=== PATIENT | female | born 1960 | race Caucasian/White ===

== ENCOUNTER 2016-11-02 10:03 | Emergency (ER) ==
[2016-11-02 10:03] VITALS: BMI 20.6
[2016-11-02 10:10] VITALS: BP 110/80; TEMP 96.9
--- NOTE | 2016-11-02 10:49 | ED.PDOC ---
General ED Provider: Dr. FRANCK KEYS JR Chief Complaint: Respiratory Complaint Stated Complaint: COUGH 6 DAYS. RUNNY NOSE. RIGHT RIB PAIN, DIARRHEA. [ End ] no PMD has tried to see Dr Lund but transportation issues Time Seen by Physician: 10:48 Mode of Arrival: Walk-In Information Source: Patient Exam Limitations: No limitations Nursing and Triage Documentation Reviewed and Agree: No Review of Systems - Review Of Systems Constitutional: Reports: Chills, Malaise, Weakness Eyes: Reports: No symptoms Ears, Nose, Mouth, Throat: Reports: No symptoms Respiratory: Reports: Cough, Short of air, Wheezing Cardiac: Reports: No symptoms GI: Reports: No symptoms : Reports: No symptoms Musculoskeletal: Reports: No symptoms Skin: Reports: No symptoms Neurological: Reports: No symptoms Endocrine: Reports: No symptoms Hematologic/Lymphatic: Reports: No symptoms All Other Systems: Other Past Medical History - Past Medical History Endocrine: Reports: None Cardiovascular: Reports: Hypertension Respiratory: Reports: None Hematological: Reports: None Gastrointestinal: Reports: Other (hep c ) Genitourinary: Reports: None Neuro/Psych: Reports: Anxiety, Depression Musculoskeletal: Reports: None Cancer: Reports: None Last Menstrual Period: NA - Surgical History General Surgical History: Reports: Hysterectomy, Cholecystectomy, Orthopedic ( RIGHT KNEE SURGERY. SCOPE SURGERY ON LEFT KNEE). Denies: CABG (cath rencent), Back Surgery (CHRONIC BACK PROBLEMS) - Family History Family History: Reports: Unknown - Social History Smoking Status: Current every day smoker, Vaping Hx Substance Use: Yes Alcohol Screening: Occasionally - Immunizations Tetanus Shot up to Date: Yes Physical Exam - Physical Exam Appearance: Ill-appearing, Thin Ill-appearing: Moderate Pain Distress: Moderate Eyes: MARY, EOMI, Conjunctiva clear ENT: Ears normal, Nose normal, Oropharynx normal Neck: Supple Respiratory: Airway patent, Rhonchi, Wheezes Cardiovascular: RRR GI/: Soft, Nontender, No masses, Bowel sounds normal, No Organomegaly Musculoskeletal: Normal strength, ROM intact, No edema, No calf tenderness Skin: Warm, Dry, Normal color Neurological: Sensation intact, Motor intact, Reflexes intact, Cranial nerves intact, Alert, Oriented Psychiatric: Affect appropriate, Mood appropriate, Anxious Interpretation - Radiology Interpretation Radiology Interpretation By: Radiologist Radiology Results: No acute changes Exam Interpreted: CXR Critical Care Note - Critical Care Note Total Time (mins): 10 Course - Course Orders, Labs, Meds: Orders Category Date Time Status CHEST, 2 VIEWS PA & LAT Stat RADS 11/02/16 10:48 Completed Vital Signs: Temp Pulse Resp BP Pulse Ox 11/02/16 10:06 96.9 F L 103 H 20 110/80 95 Departure - Departure Time of Disposition: 11:31 Disposition: HOME SELF-CARE Discharge Problem: Bronchitis, COPD exacerbation Instructions: COPD (Chronic Obstructive Pulmonary Disease) (ED), Acute Bronchitis (ED) Condition: Stable Pt referred to PMD for follow-up: Yes Additional Instructions: antibiotic until gone may use [place] for pain and cough may use tessalon for cough return if fever over 101.0 Prescriptions: Hydrocodone Bit/Acetaminophen [[place] 5-325] 1 - 2 tab PO Q6HR PRN #12 tablet PRN Reason: pain Sulfamethoxazole/Trimethoprim [Bactrim Ds 800/160 mg] 1 tab PO Q12HR #14 tablet Benzonatate [Tessalon Perles] 200 mg PO TID PRN #20 capsule PRN Reason: Cough Benzonatate [Tessalon Perles] 200 mg PO TID PRN #20 capsule PRN Reason: Cough Allergies/Adverse Reactions: Allergies cyclobenzaprine HCl [From Flexeril] Adverse Reaction (Verified 11/02/16 10:04) ketorolac tromethamine [From Toradol] Adverse Reaction (Verified 11/02/16 10:04) levofloxacin [From Levaquin] Adverse Reaction (Verified 11/02/16 10:04) Home Medications: Ambulatory Orders Estradiol 1 mg PO DAILY 03/19/16 Hydrochlorothiazide 25 mg PO DAILY 08/11/16 Ipratropium [place] [Atrovent Hfa] 2 puff IH QID PRN #1 inhaler 08/11/16 Metoprolol Tartrate [Lopressor] 50 mg PO BID 08/11/16 Benzonatate [Tessalon Perles] 200 mg PO TID PRN #20 capsule 11/02/16 Benzonatate [Tessalon Perles] 200 mg PO TID PRN #20 capsule 11/02/16 Hydrocodone Bit/Acetaminophen [[place] 5-325] 1 - 2 tab PO Q6HR PRN #12 tablet Sulfamethoxazole/Trimethoprim [Bactrim Ds 800/160 mg] 1 tab PO Q12HR #14 tablet 11/02/16 Disposition Discussed With: Patient
--- NOTE | 2016-11-02 11:29 | DI ---
EXAM: Chest two view, frontal and lateral views. HISTORY: Cough. COMPARISON: 08/11/2016, 05/19/2013. FINDINGS: The heart size is normal. There is no pulmonary vascular congestion. The lungs are maynor r save for stable right upper lobe scarring. No pleural effusion or pneumothorax is seen. No acute osseous abnormality identified. Cholecystectomy clips noted. IMPRESSION: No acute cardiopulmonary process.
== END 2016-11-02 12:05 | disposition home or self-care (01) ==
LOC: ED 10:03
DX: J44.0 Chronic obstructive pulmonary disease with (acute) lower respiratory infection (principal); J20.9 Acute bronchitis, unspecified; J44.1 Chronic obstructive pulmonary disease with (acute) exacerbation; F17.210 Nicotine dependence, cigarettes, uncomplicated
CPT/HCPCS: 99282

== ENCOUNTER 2016-11-05 11:42 | Emergency (ER) ==
[2016-11-05 11:54] VITALS: BP 108/75; TEMP 97.9; BMI 20.3
--- NOTE | 2016-11-05 12:45 | ED.PDOC ---
General ED Provider: Dr. FRANCK KEYS JR Chief Complaint: Respiratory Complaint Stated Complaint: Cough, nasal congestion, watery eyes, body aches. Ran out of [place] (given through this ER on 11/02) this AM. C/O mild diarrhea. Vomited 4-5 times this AM. [ End ]97.9 90 20 96% 108/75 9/10 ran out of norco this AM productive yellow green cough patient could not afford cough medication from when she was here the other day and is now out of norcos.[ End ] Time Seen by Physician: 12:30 Information Source: Patient Exam Limitations: No limitations Nursing and Triage Documentation Reviewed and Agree: No Review of Systems - Review Of Systems Constitutional: Reports: Malaise, Weakness Eyes: Reports: No symptoms Ears, Nose, Mouth, Throat: Reports: No symptoms Respiratory: Reports: Cough, Short of air, Wheezing Cardiac: Reports: No symptoms GI: Reports: Diarrhea, Nausea, Vomiting : Reports: No symptoms Musculoskeletal: Reports: No symptoms Skin: Reports: No symptoms Neurological: Reports: No symptoms Endocrine: Reports: No symptoms Hematologic/Lymphatic: Reports: No symptoms All Other Systems: Other Past Medical History - Past Medical History Endocrine: Reports: None Cardiovascular: Reports: Hypertension Respiratory: Reports: None Hematological: Reports: None Gastrointestinal: Reports: Other (hep c ) Genitourinary: Reports: None Neuro/Psych: Reports: Anxiety, Depression Musculoskeletal: Reports: None Cancer: Reports: None Last Menstrual Period: hysterectomy - Surgical History General Surgical History: Reports: Hysterectomy, Cholecystectomy, Orthopedic ( RIGHT KNEE SURGERY. SCOPE SURGERY ON LEFT KNEE). Denies: CABG (cath rencent), Back Surgery (CHRONIC BACK PROBLEMS) - Family History Family History: Reports: Unknown - Social History Smoking Status: Current every day smoker, Light tobacco smoker Hx Substance Use: Yes Alcohol Screening: Occasionally Physical Exam - Physical Exam Appearance: Ill-appearing, Thin, Cachectic Pain Distress: Moderate Eyes: MARY ENT: Ears normal, Nose normal, Oropharynx normal Neck: Supple Respiratory: Airway patent, Breath sounds equal (deep cough), Rhonchi, Wheezes Cardiovascular: RRR GI/: Soft, Nontender Musculoskeletal: ROM intact Skin: Warm, Dry Neurological: Sensation intact, Motor intact Critical Care Note - Critical Care Note Total Time (mins): 0 Course - Course Orders, Labs, Meds: Orders Category Date Time Status NEBULIZER TREATMENT Stat CARDIO 11/05/16 13:01 Completed Ipratropium/Albuterol Neb [Duoneb] MEDS 11/05/16 13:01 Discontinued 1 vial NEB ONCE STA Methylprednisolone Sod Succ/Pf [Solu-Medrol 125 mg] MEDS 11/05/16 12:49 Discontinued 125 mg IM ONCE STA Medications Discontinued Medications Generic Name Dose Route Start Last Admin Trade Name Freq PRN Reason Stop Dose Admin Albuterol/Ipratropium 1 vial 11/05/16 13:01 11/05/16 13:11 Duoneb NEB 11/05/16 13:02 1 vial ONCE STA Administration Methylprednisolone Sodium Succinate 125 mg 11/05/16 12:49 11/05/16 13:30 Solu-Medrol 125 Mg IM 11/05/16 12:50 125 mg ONCE STA Administration Vital Signs: Temp Pulse Resp BP Pulse Ox 11/05/16 11:45 97.9 F 90 20 108/75 96 Departure - Departure Time of Disposition: 13:43 Disposition: HOME SELF-CARE Discharge Problem: COPD exacerbation Instructions: COPD (Chronic Obstructive Pulmonary Disease) (ED) Condition: Fair Pt referred to PMD for follow-up: Yes (no pmd) Additional Instructions: recheck 1-2 weeks follow up with PMD may follow up with [facility] antibiotic should resolve symptoms avoid smoke and burning may need to avoid out of doors on [place] or pollen days recheck sooner if fever over 101.0 Prescriptions: Guaifenesin/Codeine Phosphate [Robitussin AC Syrup] 10 ml PO Q6H PRN #240 ml PRN Reason: Cough Promethazine HCl [Phenergan Tab] 25 mg PO QID PRN #12 tablet PRN Reason: Nausea / Vomiting Allergies/Adverse Reactions: Allergies cyclobenzaprine HCl [From Flexeril] Adverse Reaction (Verified 11/05/16 12:23) ketorolac tromethamine [From Toradol] Adverse Reaction (Verified 11/05/16 12:23) levofloxacin [From Levaquin] Adverse Reaction (Verified 11/05/16 12:23) Home Medications: Ambulatory Orders Estradiol 1 mg PO DAILY 03/19/16 Hydrochlorothiazide 25 mg PO DAILY 08/11/16 Ipratropium [place] [Atrovent Hfa] 2 puff IH QID PRN #1 inhaler 08/11/16 Metoprolol Tartrate [Lopressor] 50 mg PO BID 08/11/16 Sulfamethoxazole/Trimethoprim [Bactrim Ds 800/160 mg] 1 tab PO Q12HR #14 tablet 11/02/16 Guaifenesin/Codeine Phosphate [Robitussin AC Syrup] 10 ml PO Q6H PRN #240 ml Promethazine HCl [Phenergan Tab] 25 mg PO QID PRN #12 tablet 11/05/16
[2016-11-05] MEDS ORDERED: SOLU-MEDROL 125 MG IM STA (12:49)
[2016-11-05] MEDS ORDERED: DUONEB NEB STA (13:01)
== END 2016-11-05 14:51 | disposition home or self-care (01) ==
LOC: ED 11:42
DX: J44.1 Chronic obstructive pulmonary disease with (acute) exacerbation (principal); R11.2 Nausea with vomiting, unspecified; R19.7 Diarrhea, unspecified; F17.210 Nicotine dependence, cigarettes, uncomplicated; Z79.899 Other long term (current) drug therapy
CPT/HCPCS: 94640; 96372; 99283

== ENCOUNTER 2016-12-06 12:53 | Outpatient (CLI) ==
[2016-12-06 13:01] VITALS: BMI 20.6
== END 2016-12-06 12:54 ==
LOC: AMBL 12:53
PROVIDERS: ATTEND Internal Medicine
DX: M54.5 Low back pain (principal); G89.29 Other chronic pain

== ENCOUNTER 2016-12-06 13:00 | Emergency (ER) ==
[2016-12-06 13:01] VITALS: BMI 20.6
[2016-12-06 13:05] VITALS: BP 162/139; TEMP 98.3
[2016-12-06] MEDS ORDERED: NORFLEX IM STA (13:09)
--- NOTE | 2016-12-06 13:13 | ED.PDOC ---
General ED Provider: Dr. MENDOZA HERNANDEZ Chief Complaint: Back Pain Stated Complaint: back pain lumbar Time Seen by Physician: 13:00 Mode of Arrival: Ambulance Information Source: Patient Exam Limitations: No limitations Nursing and Triage Documentation Reviewed and Agree: Yes Musculoskeletal Complaint Exam - Back Pain Complaint/Exam Mechanism of Injury: Reports: No known trauma (was lifting a heavy object) Onset/Duration: 20 min Symptoms Are: Still present Timing: Constant Episodes Lasting: Minutes Initial Severity: Moderate Current Severity: Moderate Character: Reports: Throbbing Aggravating: Reports: Movements, Lifting, Bending, Walking Alleviating: Reports: Rest, Position Associated Signs and Symptoms: Denies: Swelling, Redness, Bruising, Fever, Weakness, Numbness, Tingling, Abdominal pain, Flank pain, Bladder incontinence, Bowel incontinence, Weight loss, Pain with weight bearing Related History: Reports: Similar episode Epidural Abcess Risk Factors: Reports: None Related Surgical History: Reports: None Focal Tenderness: No Paraspinal Muscle Tenderness: Yes Paraspinal Muscle Spasm: No Scoliosis: No Lordosis: No Kyphosis: No SLR Test: Right Negative, Left Negative Hip Motion Testing Pain: Right Negative, Left Negative Focal Weakness: Present: None Focal Sensory Loss: Present: None Gait: Present: Normal Differential Diagnoses: Strain, Sprain Review of Systems - Review Of Systems Constitutional: Reports: No symptoms Eyes: Reports: No symptoms Ears, Nose, Mouth, Throat: Reports: No symptoms Respiratory: Reports: No symptoms Cardiac: Reports: No symptoms GI: Reports: No symptoms : Reports: No symptoms Musculoskeletal: Reports: Back pain Skin: Reports: No symptoms Neurological: Reports: No symptoms Endocrine: Reports: No symptoms Hematologic/Lymphatic: Reports: No symptoms All Other Systems: Reviewed and Negative Past Medical History - Past Medical History Endocrine: Reports: None Cardiovascular: Reports: Hypertension Respiratory: Reports: None Hematological: Reports: None Gastrointestinal: Reports: Other (hep c ) Genitourinary: Reports: None Neuro/Psych: Reports: Anxiety, Depression Musculoskeletal: Reports: None Cancer: Reports: None Last Menstrual Period: none - Surgical History General Surgical History: Reports: Hysterectomy, Cholecystectomy, Orthopedic ( RIGHT KNEE SURGERY. SCOPE SURGERY ON LEFT KNEE). Denies: CABG (cath rencent), Back Surgery (CHRONIC BACK PROBLEMS) - Family History Family History: Reports: Unknown - Social History Smoking Status: Current every day smoker, Light tobacco smoker Hx Substance Use: Yes Alcohol Screening: Occasionally Physical Exam - Physical Exam Appearance: Well-appearing, No pain distress, Well-nourished Eyes: MARY, EOMI, Conjunctiva clear ENT: Ears normal, Nose normal, Oropharynx normal Respiratory: Airway patent, Breath sounds clear, Breath sounds equal, Respirations nonlabored Cardiovascular: RRR, Pulses normal, No rub, No murmur GI/: Soft, Nontender, No masses, Bowel sounds normal, No Organomegaly Musculoskeletal: Normal strength, ROM intact, No edema, No calf tenderness Skin: Warm, Dry, Normal color Neurological: Sensation intact, Motor intact, Reflexes intact, Cranial nerves intact, Alert, Oriented Psychiatric: Affect appropriate, Mood appropriate Critical Care Note - Critical Care Note Total Time (mins): 0 Course - Course Orders, Labs, Meds: Orders Category Date Time Status Orphenadrine Citrate [Norflex] MEDS 12/06/16 13:09 Discontinued 60 mg IM ONCE STA Medications Discontinued Medications Generic Name Dose Route Start Last Admin Trade Name Freq PRN Reason Stop Dose Admin Orphenadrine Citrate 60 mg 12/06/16 13:09 12/06/16 13:16 Norflex IM 12/06/16 13:10 60 mg ONCE STA Administration Vital Signs: Temp Pulse Resp BP Pulse Ox 12/06/16 13:01 98.3 F 73 18 162/139 H 95 Departure - Departure Time of Disposition: 13:12 Disposition: HOME SELF-CARE Discharge Problem: Back pain Qualifiers: Back pain location: low back pain Chronicity: chronic Back pain laterality: bilateral Sciatica presence: without sciatica Qualifier Code: (M54.5) Low back pain Instructions: Acute Low Back Pain (ED) Condition: Good Pt referred to PMD for follow-up: No Additional Instructions: Please call your Family Physician as soon as possible to schedule a follow-up appointment. Allergies/Adverse Reactions: Allergies cyclobenzaprine HCl [From Flexeril] Adverse Reaction (Verified 12/06/16 13:05) ketorolac tromethamine [From Toradol] Adverse Reaction (Verified 12/06/16 13:05) levofloxacin [From Levaquin] Adverse Reaction (Verified 12/06/16 13:05) Home Medications: Ambulatory Orders Estradiol 1 mg PO DAILY 03/19/16 Hydrochlorothiazide 25 mg PO DAILY 08/11/16 Ipratropium [place] [Atrovent Hfa] 2 puff IH QID PRN #1 inhaler 08/11/16 Metoprolol Tartrate [Lopressor] 50 mg PO BID 08/11/16
== END 2016-12-06 13:31 | disposition home or self-care (01) ==
LOC: ED 13:00
DX: M54.5 Low back pain (principal); X50.0XXA Overexertion from strenuous movement or load, initial encounter; F17.210 Nicotine dependence, cigarettes, uncomplicated
CPT/HCPCS: 96372; 99282

== ENCOUNTER 2017-05-21 10:15 | Emergency (ER) ==
[2017-05-21 10:25] VITALS: TEMP 98.1; BMI 21.7
[2017-05-21] MEDS ORDERED: SODIUM CHLORIDE 1,000 ML IV STA ×2 (10:25→11:40)
[2017-05-21] MEDS ORDERED: NORCURON ONE (10:33)
[2017-05-21] MEDS ORDERED: ANECTINE ONE (10:33)
[2017-05-21] MEDS ORDERED: NORCURON IVP STA ×2 (10:33→12:10)
[2017-05-21 10:35] LABS: BASOPHILS # (AUTO) 0.1 K/uL (0-0.2); BASOPHILS % (AUTO) 1.2 % (0.0-3.0); EOSINOPHILS # (AUTO) 0.3 K/ul (0.0-0.7); EOSINOPHILS % (AUTO) 5.2 % (0.0-7.0); HEMATOCRIT 29.6 % (37.0-47.0); HEMOGLOBIN 10.2 g/dl (12.0-16.0); IMMATURE GRANULOCYTE % (AUTO) 0.2 % (0.0-5.0); LYMPHOCYTES # (AUTO) 2.2 K/uL (0.60-3.4); LYMPHOCYTES % (AUTO) 38.5 (10.0-50.0); MEAN CORPUSCULAR HEMOGLOBIN 33.6 pg (27.0-31.0); MEAN CORPUSCULAR HGB CONC 34.5 (31.8-35.4); MEAN CORPUSCULAR VOLUME 97.4 fl (81.0-99.0); MONOCYTES # (AUTO) 0.5 K/uL (0.4-2.0); MONOCYTES % (AUTO) 8.5 (0-10); NEUTROPHILS # (AUTO) 2.7 K/ul (2.0-6.9); NEUTROPHILS % (AUTO) 46.4; PLATELET COUNT 248 10^3/uL (140-440); RED BLOOD COUNT 3.04 10^6/ul (4.20-5.40); WHITE BLOOD COUNT 5.76 K/ul (4.6-10.2)
[2017-05-21 10:42] LABS: BILIRUBIN,URINE Negative (NEGATIVE); KETONES,URINE Negative (NEGATIVE); LEUKOCYTE ESTERASE ,URINE Negative (NEGATIVE); NITRITE,URINE Negative (NEGATIVE); PH,URINE 5.5 (5-9); PROTEIN,URINE Trace (NEGATIVE); URINE, BLOOD Negative (NEGATIVE)
--- NOTE | 2017-05-21 10:46 | DI ---
EXAM: Single view of the chest. History: Short of breath, overdose. Comparison: Chest radiograph 11/02/2016 Findings: Heart size is within normal limits. No focal consolidation. No appreciable pleural fluid and no pneumothorax. No acute osseous abnormalities. Impression: No acute cardiopulmonary process
--- NOTE | 2017-05-21 10:48 | DI ---
EXAM: Single view of the chest. History: Intubation. Comparison: Chest radiograph 05/1960 1017 Findings: Heart size is normal. Endotracheal tube tip is within the right mainstem bronchus. Develo ping patchy left lung infiltrates and atelectasis. Elevation of the left hemidiaphragm. No pneumoth orax. No acute osseous abnormalities. Impression: 1. Endotracheal tube tip within the right mainstem bronchus. Recommend retracting 3 cm. 2. Developing patchy left lung infiltrates and atelectasis. Results communicated to Dr. Coleman at 10:43 a.m. 05/21/2017
[2017-05-21 10:50] LABS: COCAIN SCREEN,URINE NEGATIVE (NEGATIVE)
[2017-05-21] MEDS ORDERED: SODIUM CHLORIDE 500 ML IV STA (10:52)
[2017-05-21 10:53] LABS: ADD URINE MICROSCOPIC YES
[2017-05-21 10:55] LABS: ACETAMINOPHEN < 3 ug/ml (10-30); ALANINE AMINOTRANSFERASE 41 U/L (12-78); ALBUMIN 2.9 g/dL (3.4-5.0); ALBUMIN/GLOBULIN RATIO 0.97; ALKALINE PHOSPHATASE 43 U/L (42-98); ANION GAP 11.5; ASPARTATE AMINO TRANSFERASE 38 U/L (15-37); BILIRUBIN,TOTAL 0.21 mg/dL (0.00-1.20); BLOOD UREA NITROGEN 20 mg/dL (7-18); BUN/CREATININE RATIO 24.39; CALCIUM 8.3 mg/dL (8.2-10.2); CARBON DIOXIDE 23 mmol/L (21-32); CHLORIDE 108 mmol/L (98-107); CREATININE 0.82 mg/dL (0.60-1.30); GLUCOSE 141 mg/dL (70-110); POTASSIUM 3.5 mmol/L (3.5-5.10); SALICYLATE < 5.0 mg/dL (2.8-20.0); SODIUM 139 mmol/L (136-145); TOTAL PROTEIN 5.9 g/dL (6.4-8.2)
[2017-05-21 11:05] LABS: ABG PCO2 40.2 mmHg (35-45); ABG PH 7.336 (7.35-7.45)
--- NOTE | 2017-05-21 11:05 | DI ---
EXAM: Chest one view, frontal view only. HISTORY: Endotracheal tube repositioning. COMPARISON: Earlier the same day at 1118 hours. FINDINGS: Endotracheal tube tip is now at the level of the medial clavicles. Linear opacity noted i n the left perihilar region and mildly increased left retrocardiac opacity noted. Right lung is maynor r. No pleural effusion or pneumothorax identified. Heart size is normal. IMPRESSION: 1. Endotracheal tube in satisfactory position. 2. Areas of left lung subsegmental atelectasis.
[2017-05-21 11:06] LABS: ABG BASE EXCESS -4 (-2.0-2.0); ABG HCO3 21.5 (22.0-26.0); ABG TCO2 23 (22.0-28.0)
[2017-05-21] MEDS ORDERED: ATROPINE SULFATE SDV IVP STA (11:20)
--- NOTE | 2017-05-21 11:26 | CT ---
EXAM: CT of the head without contrast History: Unresponsive Comparison: Head CT 08/01/2015 Technique: Multiplanar CT images through the head were obtained without the administration of IV con trast Findings: There is mild to moderate mucosal thickening of the ethmoid air cells and frontal sinuses. Mastoid air cells are clear in general. No acute calvarial abnormalities. There is fluid within the posterior nasopharynx Intracranially the ventricular and cisternal spaces are normal in size, shape and configuration for a patient of this age. No dominant mass or midline shift. No hydrocephalous. No acute intracranial hemorrhage or abnormal extraaxial fluid collections. Impression: No acute intracranial process. Sinus mucosal thickening and fluid within the posterior nasopharynx
--- NOTE | 2017-05-21 11:29 | CT ---
EXAM: CT cervical spine without contrast. HISTORY: Found down. Possible neck injury. COMPARISON: Radiograph 10/20/2015. CT 05/19/2013. TECHNIQUE: Multiple axial images of the cervical spine were obtained without intravenous contrast. Images were reformatted in the sagittal and coronal planes. FINDINGS: There is straightening of the normal lordosis, likely positional. Alignment is normal. V ertebral body heights are maintained. There is mild loss of disc height at C5-6 with associated disc osteophyte formation which causes mild spinal stenosis. No other significant spinal stenosis identi fied. Uncovertebral hypertrophy and facet arthropathy throughout the cervical spine cause multilevel neural foraminal narrowing, mild to moderate in degree. No fracture or subluxation identified. Mild paranasal sinus mucosal thickening noted. Endotracheal tube is partially imaged with pharyngeal edema present. Small calcified left thyroid nodule noted. Emphysematous changes present in the te g apices.. IMPRESSION: No acute abnormality of the cervical spine.
[2017-05-21] MEDS ORDERED: DOPAMINE 400 MG in PREMIX 250 ML D5W 1 BAG IV SCH (11:30)
[2017-05-21 11:31] VITALS: BP 87/62
--- NOTE | 2017-05-21 11:43 | ED.PDOC ---
General ED Provider: Dr. 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 iv established by EMS fluid bolus given and narcan2 mg ivp) Nursing and Triage Documentation Reviewed and Agree: Yes (PT HAS TRACK ROSARIO ON BOTH ARMS SEE PHOTOS) Miscellaneous Complaint Exam - Complex/Multi-System Complaint/Exam Onset/Duration: TODAY THIS MORNING Symptoms Are: Still present Episodes Lasting: Hours (ARRIVED WITH O2 SAT HIGH 90'S AND EVEN 100 ON PULSE OX ) Initial Severity: Severe Current Severity: Severe Location of Pain: UNRESPONSIVE Pain Radiates to: N/A Character: N/A Aggravating: N/A Alleviating: N/A Associated Signs and Symptoms: Reports: Decreased responsiveness. 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, Prior MRSA, Prior VRE, Recent trauma, Remote trauma Recent Echo/LV Function: No (NO INFO) Respiratory Distress: None (BUT HAS NOISY RESPIRATION) JVD Present: No Tachypnea Present: No (SHALLOW ) Stridor Present: No Abdominal Findings: Present: Normal findings Glascow Coma Scale (see protocol): 8 Meningeal Signs Positive: No Focal Weakness: Present: None Focal Sensory Loss: Present: None Gait: Unable Gag Reflex Present: Yes Babinski Sign: Negative Right, Negative Left Skin Findings: Present: Erythema (TRACK ROSARIO BOTH ARMS SEE PHOTOS) Joint Swelling Present: No In-Dwelling Device Present: No Differential Diagnosis: Cardiac Ischemia, Closed Cranial Trauma, CVA (OVERDOSE ) , Metabolic Abnormality, Sepsis Quality Indicators for Cardiac Chest Pain: EKG in 10min. Quality Indicators for AMI: EKG in 10min. Quality Indicator For Non-Traumatic Chest Pain/Syncope: EKG Performed Review of Systems - Review Of Systems Constitutional: Reports: Malaise Eyes: Reports: Other (FIXED PINPOINT PUPILS NONEREACTIVE) Ears, Nose, Mouth, Throat: Reports: No symptoms Respiratory: Reports: No symptoms Cardiac: Reports: No symptoms GI: Reports: No symptoms : Reports: No symptoms Musculoskeletal: Reports: No symptoms Skin: Reports: No symptoms Neurological: Reports: Other (RESPONSIVE PIN [place]INT PUIPLS WITHDRWL'S TO PAIN MOANS SOME ) Endocrine: Reports: No symptoms Hematologic/Lymphatic: Reports: No symptoms All Other Systems: Reviewed and Negative Past Medical History - Past Medical History Endocrine: Reports: None Cardiovascular: Reports: Hypertension Respiratory: Reports: None Hematological: Reports: None Gastrointestinal: Reports: Other (hep c ) Genitourinary: Reports: None Neuro/Psych: Reports: Anxiety, Depression Musculoskeletal: Reports: None Cancer: Reports: None Last Menstrual Period: hysterectomy - Surgical History General Surgical History: Reports: Hysterectomy, Cholecystectomy, Orthopedic ( RIGHT KNEE SURGERY. SCOPE SURGERY ON LEFT KNEE). Denies: CABG (cath rencent), Back Surgery (CHRONIC BACK PROBLEMS) - Family History Family History: Reports: Unknown - Social History Smoking Status: Current every day smoker, Light tobacco smoker Hx Substance Use: Yes (track rosario on arms) Alcohol Screening: Occasionally Physical Exam - Physical Exam Appearance: Ill-appearing Ill-appearing: Severe Pain Distress: Mild Eyes: Right pupil size (2MM NONE REACTIVE), Left pupil size (2MM) ENT: Dry mucosa Respiratory: Rhonchi Cardiovascular: RRR, Pulses normal, No rub, No murmur GI/: Soft, Nontender, No masses, Bowel sounds normal, No Organomegaly Musculoskeletal: Normal strength, ROM intact, No edema, No calf tenderness Skin: Warm, Dry, Normal color Neurological: Unresponsive Psychiatric: Affect appropriate, Mood appropriate Interpretation - Radiology Interpretation Radiology Interpretation By: Radiologist Radiology Results: No acute changes Exam Interpreted: CXR (POST INTUBATION ET AT RIGHT MAIN STEM, SECOND EVAN TUBE IN SATISFACTORY POSTION), CT Scan Radiology Interpretation By: Radiologist (CT CERVICAL SPINE READ NEGATIVE) - 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 Rhythm: Sinus Ectopy: None - EKG Interpretation Rate: Normal Rhythm: Sinus Ectopy: None Lindstrom: NL ST Segment: Normal (LATER SINUS ABHAY CARDIA) Rate: Abhay Rhythm: Sinus Procedures - Intubation Indication: Present: Respiratory Insufficiency, Altered Mental Status, Airway Protection, Other (GCS 8) Time of Intubation: 10:28 (TUBE IN FIRST ATTEMPT) Medications: Yes: Norcuron, Succinylcholine Type of Tube Used: Endotracheal (7.0) Tube Size: 7 Cricoid Pressure Used: Yes Tube Manzanares Used: Yes Position of Tube at Lip: INITALLY AT 25 CM POST FILM PLACED AT 22 CM Number of Attempts: 1 Suction Used: Yes Glidescope Used: No CO2 Detector Used: Yes (CONFIRMED COLOR ) Lung Sounds Equal Bilaterally: Yes Intubation Complications: Present: No complications Tube Inserted By: RAFATI Tube Placement Verified by X-ray: Yes Progress/Xray Impression: FILMS EXAMINED TUBE PLACED AT 22 CM Re-Evaluation - Re-Evaluation Time of Re-Evaluation: 11:00 Status: Unchanged Vital Signs Stable: Yes Pain Level: REMAINS INTUBATED AND MECHANICALLY VENTILATED Appearance: NAD Lungs: Clear Skin: Warm and Dry Neuro: Other (PARALYZED DUE TO MEDS) - Re-Evaluation Time of Re-Evaluation: 12:00 (CT HEAD WAS NEGATIVE ) Status: Unchanged Vital Signs Stable: Yes (PLACED ON DOPAMINE ABOUT 30 MIN AGO B/P WAS IN HIGH SYSTOLIC ,) Pain Level: B/P 11:55 AM 98/53 ON DOPAMINE 10 DARLINE Appearance: NAD Skin: Warm and Dry Neuro: Other (URINE DRUG POSITIVE FOR AMPHETAMINE , BENZO,OPIATES) CV: RRR Physician Notification - Case Discussed Physician Notified: INDIA GONZALES Time of Notification: 12:12 (TRANSFER ) Critical Care Note - Critical Care Note Total Time (mins): 3 Course - Course Hematology/Chemistry: 05/21/17 10:25 05/21/17 10:25 Orders, Labs, Meds: Lab Review 05/21/17 05/21/17 05/21/17 10:25 10:25 10:34 WBC 5.76 RBC 3.04 L Hgb 10.2 L Hct 29.6 L MCV 97.4 MCH 33.6 H MCHC 34.5 RDW Coeff of Sheryl 13.1 Plt Count 248 Immature Gran % (Auto) 0.2 Neut % (Auto) 46.4 Lymph % (Auto) 38.5 [place] % (Auto) 8.5 Eos % (Auto) 5.2 Baso % (Auto) 1.2 Immature Gran # (Auto) 0.0 Neut # 2.7 Lymph # 2.2 [place] # 0.5 Eos # 0.3 Baso # 0.1 Puncture Site Rb O2 Saturation 100.0 ABG pH 7.336 L ABG pCO2 40.2 ABG pO2 359.0 H ABG HCO3 21.5 L ABG Total CO2 23 ABG Base Excess -4 L O2 Delivery Device Vent tv 500 FiO2 % 100.0 Sodium 139 Potassium 3.5 Chloride 108 H Carbon Dioxide 23 Anion Gap 11.5 BUN 20 H Creatinine 0.82 Estimated GFR (MDRD) 72.00 BUN/Creatinine Ratio 24.39 Glucose 141 H Calcium 8.3 Total Bilirubin 0.21 AST 38 H ALT 41 Alkaline Phosphatase 43 Total Protein 5.9 L Albumin 2.9 L Globulin 3.0 Albumin/Globulin Ratio 0.97 Urine Color Urine Clarity Urine pH Ur Specific [place] Urine Protein Urine Glucose (UA) Urine Ketones Urine Blood Urine Nitrite Urine Bilirubin Urine Urobilinogen Ur Leukocyte Esterase Ur Squamous Epith Cells Amorphous Sediment Hyaline Casts Salicylate Level mg/dL < 5.0 Urine Opiates Screen Ur Oxycodone Screen Urine Methadone Screen Ur Propoxyphene Screen Acetaminophen < 3 L Ur Barbiturates Screen U Tricyclic Antidepress Ur Phencyclidine Scrn Ur Amphetamine Screen U Methamphetamines Scrn U Benzodiazepines Scrn Urine Cocaine Screen U Cannabinoids Screen Plasma/Serum Alcohol 154.5 H 05/21/17 05/21/17 10:35 10:35 WBC RBC Hgb Hct MCV MCH MCHC RDW Coeff of Sheryl Plt Count Immature Gran % (Auto) Neut % (Auto) Lymph % (Auto) [place] % (Auto) Eos % (Auto) Baso % (Auto) Immature Gran # (Auto) Neut # Lymph # [place] # Eos # Baso # Puncture Site O2 Saturation ABG pH ABG pCO2 ABG pO2 ABG HCO3 ABG Total CO2 ABG Base Excess O2 Delivery Device FiO2 % Sodium Potassium Chloride Carbon Dioxide Anion Gap BUN Creatinine Estimated GFR (MDRD) BUN/Creatinine Ratio Glucose Calcium Total Bilirubin AST ALT Alkaline Phosphatase Total Protein Albumin Globulin Albumin/Globulin Ratio Urine Color Yellow Urine Clarity Clear Urine pH 5.5 Ur Specific [place] 1.025 Urine Protein Trace Urine Glucose (UA) Negative Urine Ketones Negative Urine Blood Negative Urine Nitrite Negative Urine Bilirubin Negative Urine Urobilinogen 0.2 Ur Leukocyte Esterase Negative Ur Squamous Epith Cells 0-2 Amorphous Sediment 1+ Hyaline Casts 0-2 Salicylate Level mg/dL Urine Opiates Screen Positive Ur Oxycodone Screen Negative Urine Methadone Screen Negative Ur Propoxyphene Screen Negative Acetaminophen Ur Barbiturates Screen Negative U Tricyclic Antidepress Negative Ur Phencyclidine Scrn Negative Ur Amphetamine Screen Positive U Methamphetamines Scrn Negative U Benzodiazepines Scrn Positive Urine Cocaine Screen Negative U Cannabinoids Screen Negative Plasma/Serum Alcohol Orders Category Date Time Status ABG DRAW REQUEST Stat CARDIO 05/21/17 11:00 Completed EKG-(ED ONLY) Stat CARDIO 05/21/17 10:16 Completed EKG-(ED ONLY) Stat CARDIO 05/21/17 11:27 Completed ED VISUAL MERCHANDISER APPLIED ONCE EMERGENCY 05/21/17 10:16 Active Bar [ED CATHETER INSERTION AND CARE] .ONCE EMERGENCY 05/21/17 10:59 Active ABG Stat LAB 05/21/17 10:34 Completed ACETAMINOPHEN Stat LAB 05/21/17 10:25 Completed BLOOD ALCOHOL Stat LAB 05/21/17 10:25 Completed BLOOD CULTURE Stat LAB 05/21/17 11:26 Ordered CBC W/ AUTO DIFF Stat LAB 05/21/17 10:25 Completed COMPREHENSIVE METABOLIC PANEL Stat LAB 05/21/17 10:25 Completed DRUG SCREEN, URINE, RAPID Stat LAB 05/21/17 10:35 Completed LACTIC ACID Stat LAB 05/21/17 11:26 Ordered PROCALCITONIN Stat LAB 05/21/17 Ordered SALICYLATE Stat LAB 05/21/17 10:25 Completed URINALYSIS C & S IF INDICATED Stat LAB 05/21/17 10:35 Completed Atropine Sulfate [Atropine Sulfate Sdv] MEDS 05/21/17 11:20 Discontinued 0.5 mg IVP ONCE STA Premix 250 ml D5w 1 bag MEDS 05/21/17 11:30 Active Dopamine HCl/D5w [Dopamine] 400 mg IV 1 mcg/kg/min Succinylcholine Chloride [Anectine] MEDS 05/21/17 10:18 Discontinued 100 mg IVP ONCE STA Succinylcholine Chloride [Anectine] MEDS 05/21/17 10:33 Discontinued 20 mg .ROUTE .STK-MED ONE Vecuronium [place] [Norcuron] MEDS 05/21/17 10:33 Discontinued 10 mg .ROUTE .STK-MED ONE Vecuronium [place] [Norcuron] MEDS 05/21/17 10:33 Discontinued 8 mg IVP ONCE STA CHEST, 1V AP ONLY Stat RADS 05/21/17 10:16 Completed CHEST, 1V AP ONLY Stat RADS 05/21/17 10:29 Completed CHEST, 1V AP ONLY Stat RADS 05/21/17 10:[address] CERVICAL SPINE W/O CONTRAST Stat RADS 05/21/17 10:[address] HEAD W/O CONTRAST Stat RADS 05/21/17 10:45 Completed Medications Generic Name Dose Route Start Last Admin Trade Name Freq PRN Reason Stop Dose Admin Dopamine HCl/Dextrose 400 mg/ 250 mls @ 2.29 mls/hr 05/21/17 11:30 05/21/17 11:30 Dextrose IV 10 mcg/kg/min .Q24H KENDRA 22.96 mls/hr Protocol Administration 1 MCG/KG/MIN Discontinued Medications Generic Name Dose Route Start Last Admin Trade Name Freq PRN Reason Stop Dose Admin Atropine Sulfate 0.5 mg 05/21/17 11:20 Atropine Sulfate Sdv IVP 05/21/17 11:21 ONCE STA Succinylcholine Chloride 100 mg 05/21/17 10:18 05/21/17 10:36 Anectine IVP 05/21/17 10:19 100 mg ONCE STA Administration Vecuronium [place] 8 mg 05/21/17 10:33 05/21/17 10:38 Norcuron IVP 05/21/17 10:34 8 mg ONCE STA Administration Vital Signs: Temp Pulse Resp BP Pulse Ox 05/21/17 11:30 50 L 20 87/62 L 05/21/17 10:40 16 05/21/17 10:16 98.1 F 61 12 77/47 L 100 Departure - Departure Time of Disposition: 12:00 Disposition: TSF SHORT-TRM HOSP Discharge Problem: Drug overdose Instructions: Adult Overdose (ED) Condition: Good Pt referred to PMD for follow-up: Yes Allergies/Adverse Reactions: Allergies cyclobenzaprine HCl [From Flexeril] Adverse Reaction (Verified 12/06/16 13:05) ketorolac tromethamine [From Toradol] Adverse Reaction (Verified 12/06/16 13:05) levofloxacin [From Levaquin] Adverse Reaction (Verified 12/06/16 13:05) Home Medications: Ambulatory Orders Estradiol 1 mg PO DAILY 03/19/16 Hydrochlorothiazide 25 mg PO DAILY 08/11/16 Ipratropium [place] [Atrovent Hfa] 2 puff IH QID PRN #1 inhaler 08/11/16 Metoprolol Tartrate [Lopressor] 50 mg PO BID 08/11/16
[2017-05-21] MEDS: ANECTINE IVP STA (13:35)
[2017-05-21] MEDS ORDERED: ANECTINE IVP STA (13:35)
== END 2017-05-21 14:05 | disposition short-term general hospital (02) ==
LOC: ED 10:15
DX: T65.91XA Toxic effect of unspecified substance, accidental (unintentional), initial encounter (principal); R40.20 Unspecified coma; R06.89 Other abnormalities of breathing; L53.9 Erythematous condition, unspecified; F17.210 Nicotine dependence, cigarettes, uncomplicated
CPT/HCPCS: 36415; 80053; 80306; 80307; 81001; 82803; 83605; 84145; 85025; 87040; 93005; 93010; 94002; 96361; 96365; 96368; 96375; 96376; 99291; 99292

== ENCOUNTER → 2017-05-21 | Outpatient (CLI) | LOC: AMBL 10:00 | PROVIDERS: ATTEND Internal Medicine | DX: T65.91XA Toxic effect of unspecified substance, accidental (unintentional), initial encounter (principal); R40.20 Unspecified coma; R06.89 Other abnormalities of breathing ==

== ENCOUNTER 2017-05-26 08:33 | Outpatient (CLI) ==
[2017-05-26 18:25] VITALS: BMI 20.5
== END 2017-05-26 08:51 | disposition short-term general hospital (02) ==
LOC: AMBL 08:33
DX: R06.9 Unspecified abnormalities of breathing (principal); R53.1 Weakness; R05 Cough; R68.89 Other general symptoms and signs; R09.89 Other specified symptoms and signs involving the circulatory and respiratory systems; J44.9 Chronic obstructive pulmonary disease, unspecified; I50.9 Heart failure, unspecified

== ENCOUNTER 2017-05-26 09:00 | Inpatient (IN) ==
[2017-05-26] MEDS ORDERED: SODIUM CHLORIDE 1,000 ML IV STA (09:20)
[2017-05-26] MEDS ORDERED: ZOFRAN 4 MG/2 ML IVP STA ×2 (09:21→16:33)
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
--- NOTE | 2017-05-26 09:49 | DI ---
EXAM: Chest two view, frontal and lateral views. HISTORY: Shortness of breath. COMPARISON: 05/21/2017. FINDINGS: The heart size is normal. There is no pulmonary vascular congestion. Consolidations seen within the left mid to lower lung, likely in the lingula and right lower lobe. Right upper lobe sca rring is stable. Otherwise, the lungs are clear. No pleural effusion or pneumothorax is seen. No a cute osseous abnormality identified. IMPRESSION: Multifocal left lung pneumonia.
[2017-05-26 10:02] LABS: BASOPHILS % (AUTO) 0.3 % (0.0-3.0); EOSINOPHILS % (AUTO) 0.3 % (0.0-7.0); HEMATOCRIT 34.1 % (37.0-47.0); IMMATURE GRANULOCYTE % (AUTO) 0.6 % (0.0-5.0); LYMPHOCYTES # (AUTO) 1.4 K/uL (0.60-3.4); LYMPHOCYTES % (AUTO) 16.5 (10.0-50.0); MEAN CORPUSCULAR HEMOGLOBIN 33.1 pg (27.0-31.0); MEAN CORPUSCULAR HGB CONC 35.2 (31.8-35.4); MEAN CORPUSCULAR VOLUME 93.9 fl (81.0-99.0); MONOCYTES # (AUTO) 0.9 K/uL (0.4-2.0); NEUTROPHILS # (AUTO) 6.3 K/ul (2.0-6.9); NEUTROPHILS % (AUTO) 72.3; PLATELET COUNT 305 10^3/uL (140-440); RED BLOOD COUNT 3.63 10^6/ul (4.20-5.40); WHITE BLOOD COUNT 8.69 K/ul (4.6-10.2)
[2017-05-26 10:39] LABS: ALBUMIN 2.9 g/dL (3.4-5.0); ALBUMIN/GLOBULIN RATIO 0.59; ANION GAP 15.2; BILIRUBIN,TOTAL 0.59 mg/dL (0.00-1.20); BUN/CREATININE RATIO 14.06; CALCIUM 10.4 mg/dL (8.2-10.2); CREATININE 0.64 mg/dL (0.60-1.30); POTASSIUM 3.2 mmol/L (3.5-5.10); TOTAL PROTEIN 7.8 g/dL (6.4-8.2); TROPONIN I 0.011 ng/ml (0.0000-0.4000)
[2017-05-26] MEDS ORDERED: ALBUTEROL 0.083% NEB NEB STA (10:40)
[2017-05-26] MEDS ORDERED: K-DUR PO STA (11:03)
[2017-05-26 13:10] LABS: BILIRUBIN,URINE Negative (NEGATIVE); KETONES,URINE 1+ (NEGATIVE); LEUKOCYTE ESTERASE ,URINE Negative (NEGATIVE); NITRITE,URINE Negative (NEGATIVE); PROTEIN,URINE Trace (NEGATIVE); URINE, BLOOD Negative (NEGATIVE)
[2017-05-26 13:11] LABS: ADD URINE MICROSCOPIC YES
[2017-05-26 13:33] LABS: COCAIN SCREEN,URINE NEGATIVE (NEGATIVE)
--- NOTE | 2017-05-26 14:43 | CT ---
Exam: CT of the chest with intravenous contrast. CTA PE protocol with 3-D MIP reformats. Comparison: Chest x-ray performed on the same day. Reason for exam: Shortness of breath, pneumonia, elevated D-dimer, left rib fracture. FINDINGS: Emphysematous disease is seen within apical predominance. No pneumothorax. Airspace cons olidations are seen in the left upper and left lower lobes with a small left-sided pleural effusion. A small focus of consolidation is seen in the right lower lobe on axial image number 54. The aorta is normal in course and caliber. The heart is not enlarged. No main, proximal, or segmental pulmonary arterial filling defect is seen. No displaced rib fractures are seen. The gallbladder has been removed. Impression: 1. No main, proximal, or segmental pulmonary arterial filling defects. 2. Air space consolidations in the left upper and left lower lobes with a small consolidation in the right lower lobe. Imaging findings are consistent with multi focal pneumonia. Report faxed at [id number] hours on 05/26/2017
[2017-05-26] MEDS ORDERED: MORPHINE 2 MG/ML SYRINGE IVP STA (16:35)
[2017-05-26] MEDS ORDERED: ALBUTEROL 0.083% NEB NEB PRN (16:47)
[2017-05-26] MEDS ORDERED: ROCEPHIN ONE (17:06)
[2017-05-26] MEDS: ROCEPHIN 1 GM in SODIUM CHLORIDE 50 ML IV SCH (17:16)
[2017-05-26 18:00] LABS: ABG BASE EXCESS -2 (-2.0-2.0); ABG HCO3 21.6 (22.0-26.0); ABG PCO2 29.3 mmHg (35-45); ABG PH 7.476 (7.35-7.45); ABG TCO2 23 (22.0-28.0)
[2017-05-26] MEDS: DUONEB NEB SCH ×2 (18:10→23:00)
[2017-05-26 18:25] VITALS: BMI 20.5
[2017-05-26] MEDS: ZITHROMAX 500 MG in SODIUM CHLORIDE 250 ML IV SCH (18:26)
[2017-05-26] MEDS: DEXTROSE 5%-1/2NS IV SOLUTION 1,000 ML IV SCH (19:26)
[2017-05-26] MEDS: SOLU-CORTEF 250 MG IVP SCH ×2 (19:27→20:07)
[2017-05-26] MEDS ORDERED: LOPRESSOR PO SCH (21:00)
[2017-05-26] MEDS: MORPHINE 2 MG/ML SYRINGE IVP PRN (21:16)
[2017-05-27] MEDS: MORPHINE 2 MG/ML SYRINGE IVP PRN ×3 (04:10→18:18)
[2017-05-27] MEDS: SOLU-CORTEF 250 MG IVP SCH ×3 (04:11→20:31)
[2017-05-27 05:00] LABS: BASOPHILS % (AUTO) 0.3 % (0.0-3.0); HEMATOCRIT 30.5 % (37.0-47.0); HEMOGLOBIN 10.5 g/dl (12.0-16.0); LYMPHOCYTES # (AUTO) 0.6 K/uL (0.60-3.4); MEAN CORPUSCULAR HEMOGLOBIN 32.7 pg (27.0-31.0); MEAN CORPUSCULAR HGB CONC 34.4 (31.8-35.4); MONOCYTES # (AUTO) 0.3 K/uL (0.4-2.0); MONOCYTES % (AUTO) 8.8 (0-10); NEUTROPHILS # (AUTO) 2.9 K/ul (2.0-6.9); NEUTROPHILS % (AUTO) 74.9; PLATELET COUNT 282 10^3/uL (140-440); RED BLOOD COUNT 3.21 10^6/ul (4.20-5.40); WHITE BLOOD COUNT 3.87 K/ul (4.6-10.2)
[2017-05-27] MEDS: DUONEB NEB SCH ×4 (05:11→23:04)
[2017-05-27 05:40] LABS: ALBUMIN 2.3 g/dL (3.4-5.0); ALBUMIN/GLOBULIN RATIO 0.61; ANION GAP 11.6; BILIRUBIN,TOTAL 0.33 mg/dL (0.00-1.20); BUN/CREATININE RATIO 16.12; CALCIUM 9.2 mg/dL (8.2-10.2); CREATININE 0.62 mg/dL (0.60-1.30); POTASSIUM 3.6 mmol/L (3.5-5.10); TOTAL PROTEIN 6.1 g/dL (6.4-8.2)
[2017-05-27] MEDS: ZOFRAN 4 MG/2 ML IVP PRN (07:46)
[2017-05-27] MEDS: ROCEPHIN 1 GM in SODIUM CHLORIDE 50 ML IV SCH (08:47)
[2017-05-27] MEDS: LOPRESSOR PO SCH ×2 (08:48→17:21)
[2017-05-27] MEDS: HYDROCHLOROTHIAZIDE PO SCH (08:48)
[2017-05-27] MEDS: ZITHROMAX 500 MG in SODIUM CHLORIDE 250 ML IV SCH (09:39)
[2017-05-27] MEDS: XANAX PO PRN ×2 (11:27→20:45)
--- NOTE | 2017-05-27 11:29 | PCM.PROG ---
Attending Provider: ATTENDING PROVIDER: [facility] patient is seen with Angelina Singh, Nurse Practitioner. DATE OF SERVICE: 05/27/17 SUBJECTIVE: This 56 year old WHITE/ F was hospitalized 05/26/17. The patient is lying in bed, alert. She states she is having coughing spells and pain all over. The patient left [facility] yesterday. She arrived here at ER last night. The patient has a long history of noncompliance. No primary care physician within the past 2 years. REVIEW OF SYSTEMS: CONSTITUTIONAL: No night sweats. No fatigue, malaise, lethargy. No fever or chills. HEENT: Eyes: No visual changes. No eye pain. No eye discharge. ENT: No runny nose. No epistaxis. No sinus pain. No odynophagia. No congestion. RESPIRATORY: Cough. No congestion. No hemoptysis. No shortness of breath. CARDIOVASCULAR: No angina symptoms. No CHF symptoms. No atypical chest pain for CAD. No palpitations. No orthopnea.. GASTROINTESTINAL: Nausea. No abdominal pain. No vomiting. No diarrhea or constipation. No hematemesis. No hematochezia. GENITOURINARY: No urgency. No frequency. No dysuria. No hematuria. No obstructive symptoms. No discharge. No pain. No significant abnormal bleeding. MUSCULOSKELETAL: Pain all over. NEUROLOGICAL: Awake, alert, oriented to time, place and person. No headache. No neck pain. No syncope. No seizures. No dizziness. PSYCHIATRIC: Not anxious. No depression. No suicidal thoughts. No homicidal thoughts. SKIN: No rash. No lesions. No wounds. ENDOCRINE: No unexplained weight loss. No weight gain. HEMATOLOGIC/LYMPHATIC: No anemia. No purpura. No petechiae. No prolonged or excessive bleeding. No palpable lymph nodes. PHYSICAL EXAMINATION: GENERAL: The patient is awake, alert and oriented, lying in bed in no distress. VITAL SIGNS: Temperature 98.3 F, Pulse 88, Respiratory Rate 17, BP 123/73, Pulse Ox 96% HEENT: Head normocephalic, atraumatic. Eyes: Extraocular muscles are intact. Pupils are equal, round and reactive to light and accommodation. Ears: No lesions. Nose appeared normal. Throat: No exudate or erythema. NECK: Supple. No JVD, no carotid bruit. No lymphadenopathy or thyromegaly. LUNGS: Decreased breath sounds bilaterally. Clear to auscultation. Percussion note normal. Chest symmetrical. HEART: S1, S2, no S3. No murmurs. No cyanosis or clubbing. No ascites. Pulses: Dorsalis pedis and posterior tibial pulses +1 to +2 both sides. ABDOMEN: Soft. Non-tender. Bowel sounds active. No CVA tenderness. No mass felt. EXTREMITIES: No edema. Full range of motion of all extremities, equal. NEUROLOGIC: No focal deficit. Cranial nerves II through XII are grossly intact. No headache, no double vision or headache. SKIN: Not dry. Intact. Turgor-normal. LYMPHATIC: No palpable lymph nodes/no lymphedema. MUSCULOSKELETAL: Normal joints with no swelling. Muscle tone is normal. LAB REVIEW: 05/27/17 04:56 05/27/17 04:56 05/27/17 04:56: Sodium 138, Potassium 3.6, Chloride 106, Carbon Dioxide 24, Anion Gap 11.6, BUN 10, Creatinine 0.62, Estimated GFR (MDRD) 100.00, BUN/ Creatinine Ratio 16.12, Glucose 175 H D, Calcium 9.2, Total Bilirubin 0.33, AST 16, ALT 19, Alkaline Phosphatase 39 L, Total Protein 6.1 L, Albumin 2.3 L, Globulin 3.8, Albumin/Globulin Ratio 0.61, TSH 0.249 L 05/27/17 04:56: WBC 3.87 L, RBC 3.21 L, Hgb 10.5 L, Hct 30.5 L, MCV 95.0, MCH 32.7 H, MCHC 34.4, RDW Coeff of Sheryl 13.3, Plt Count 282, Immature Gran % (Auto) 1.0, Neut % (Auto) 74.9, Lymph % (Auto) 15.0, [place] % (Auto) 8.8, Eos % (Auto) 0.0, Baso % (Auto) 0.3, Immature Gran # (Auto) 0.0, Neut # 2.9, Lymph # 0.6, [place] # 0.3 L, Eos # 0.0, Baso # 0.0 ASSESSMENT: 1. Bilateral pneumonia 2. Smoker 3. History of substance abuse 4. History of noncompliance PLAN: 1. Continue IV Rocephin 2. Continue Zithromax 3. Continue nebs 4. Morphine 1 mg q.6hr Plan and coordination of the patient's care discussed in the presence of Physician Liaison and nurse. CONDITION: Stable SCRIBED BY: FLORIDALMA LINDER Medical Accounting Clerk scribed while in presence of service performed by Dr. Schulz/Angelina Singh APRN on 05/27/17 ([id number])
[2017-05-27] MEDS: DEXTROSE 5%-1/2NS IV SOLUTION 1,000 ML IV SCH (14:36)
--- NOTE | 2017-05-27 15:03 | HP ---
DATE OF SERVICE: 05/26/17 REASON FOR HOSPITALIZATION/HISTORY OF PRESENT ILLNESS: 56 year old female who was recently hospitalized at [facility] in [place] after arriving in our ER after an overdose on Xanax. She was transferred to [facility] and left AMA on the or it is unsure at which point. She was home for a couple of days and then called the ambulance service complaining of nausea, vomiting and chest pain. She was then brought to the emergency and found to have a low grade temperature and then was subsequently worked up and found to have bilateral pneumonia. PAST MEDICAL HISTORY: Hypothyroidism COPD Long history of smoker History of noncompliance History of substance abuse Hypertension PAST SURGICAL HISTORY: Status post Cholecystectomy Appendectomy Hysterectomy History of lung abscess with drainage. REVIEW OF SYSTEMS: CONSTITUTIONAL: No night sweats. Fatigue. Fever or chills. HEENT: Eyes: No visual changes. No eye pain. No eye discharge. ENT: No runny nose. No epistaxis. No sinus pain. No sore throat. No odynophagia. No ear pain. No congestion. RESPIRATORY: Cough and wheezing, no congestion. No hemoptysis. Shortness of breath. CARDIOVASCULAR: No angina symptoms. No CHF symptoms. No atypical chest pain for CAD. No palpitations. No orthopnea. Pleuritic type pain. GASTROINTESTINAL: No abdominal pain. Nausea and vomiting. No diarrhea or constipation. No hematemesis. No hematochezia. GENITOURINARY: No urgency. No frequency. No dysuria. No hematuria. No obstructive symptoms. No discharge. No pain. No significant abnormal bleeding. MUSCULOSKELETAL: No musculoskeletal pain. No joint swelling. No arthritis. "Hurting all over" NEUROLOGICAL: No headache. No neck pain. No syncope. No seizures. No dizziness. Anxious. PSYCHIATRIC: Not anxious. No depression. No suicidal thoughts. No homicidal thoughts. SKIN: No rash. No lesions. No wounds. ENDOCRINE: No unexplained weight loss. No weight gain. HEMATOLOGIC/LYMPHATIC: No anemia. No purpura. No petechiae. No prolonged or excessive bleeding. No palpable lymph nodes. PERSONAL/FAMILY/SOCIAL HISTORY: The patient denies any alcohol or illicit drug use again however she was recently hospitalized for overdose on Xanax which she does not have a prescription for. She has a long history of a one pack per day smoker for at least the past 20 years. MEDICATIONS: Estradiol 2mg PO daily Lopressor 50mg PO daily Hydrochlorothiazide 25mg PO daily Atrovent Hfa 2 puffs IG four times a day PRN ALLERGIES: Cyclobenzaprine HCl Ketorolac tromethamine Levofloxacin PHYSICAL EXAMINATION: GENERAL: The patient is , lying/sitting in bed in no distress. VITAL SIGNS: Stable. Temperature 99, heart rate 88, respirations 17, blood pressure 122/73 and pulse ox 96%. Weighed 127.8 pounds. HEENT: Head normocephalic, atraumatic. Eyes: Extraocular muscles are intact. Pupils are equal, round and reactive to light and accommodation. Ears: No lesions. Nose appeared normal. Throat: No exudate or erythema. NECK: Supple. No JVD, no carotid bruit. No lymphadenopathy or thyromegaly. LUNGS: Diminished breath sounds bilaterally with rales on the left. Clear to auscultation. Percussion note normal. Chest symmetrical. HEART: S1, S2, no S3. No murmurs, clicks or rubs. No cyanosis or clubbing. No ascites. Pulses: Dorsalis pedis and posterior tibial pulses +1 to +2 both sides. ABDOMEN: Soft. Nontender. Bowel sounds active times four quadrants. No CVA tenderness. No mass felt. EXTREMITIES: No edema. Full range of motion of all extremities, equal. No clubbing and no cyanosis. No joint swelling. No redness. NEUROLOGIC: No focal deficit. Cranial nerves II through XII are grossly intact. No headache, no double vision or headache. Alert and oriented times three. SKIN: Not dry. Intact. Turgor - normal. LYMPHATIC: No palpable lymph nodes/no lymphedema. MUSCULOSKELETAL: Normal joints with no swelling. Muscle tone is normal. RADIOLOGICAL FINDINGS: Chest CT and x-ray revealed multivocal left sided pneumonia along with small right lower lobe consolidation. LABS: WBC 3.87, hgb 10.5, hct 30.5, plt count 282, sodium 138, potassium 3.6, BUN 10, creatinine 0.62, glucose 175, TSH 0.249, pH 7.476, pCO2 29.3, pO2 85, base excess -2, HCO3 21.6, TCO2 23, O2 saturation 97. Total protein 6.1, Albumin 2.3 , globulin 3.8, Alkaline phosphatase 39. ASSESSMENT: 1. Bilateral pneumonia 2. History of noncompliance 3. History of substance abuse 4. No current Primary Care Provider, the patient denies seeing a primary care provider for at least two years PLAN: 1. Will admit the patient 2. Place on Rocephin 1 gram IV daily along with Zithromax 500mg PO daily times three days 3. Will start Solu-Cortef 125mg IV Q 8 hours 4. Start DUO NEBS Nebulizer treatment Q 6 hours along with Albuterol Q 2 hours PRN 5. Tylenol as needed 6. Routine Telemetry 7. IV fluids at 75cc an hours D5 1/2 normal saline 8. Continue Lopressor at 50mg twice a day 9. Will do Morphine 2mg Q 6 hours PRN for pain 10.Zofran 4mg Q 6 hours PRN for nausea and vomiting. 11. Continue to follow her closely with daily CBC And CMP 12. Sputum culture 13 13. Labs and paperwork from [facility] reviewed TIME SPENT: More than 70 minutes. SANDHYA
[2017-05-27] MEDS: TYLENOL PO PRN (20:45)
[2017-05-28] MEDS: DEXTROSE 5%-1/2NS IV SOLUTION 1,000 ML IV SCH (02:58)
[2017-05-28] MEDS: MORPHINE 2 MG/ML SYRINGE IVP PRN (02:58)
[2017-05-28 04:56] LABS: BASOPHILS % (AUTO) 0.3 % (0.0-3.0); HEMATOCRIT 28.3 % (37.0-47.0); HEMOGLOBIN 9.7 g/dl (12.0-16.0); IMMATURE GRANULOCYTE % (AUTO) 1.5 % (0.0-5.0); LYMPHOCYTES # (AUTO) 0.9 K/uL (0.60-3.4); LYMPHOCYTES % (AUTO) 11.9 (10.0-50.0); MEAN CORPUSCULAR HEMOGLOBIN 32.4 pg (27.0-31.0); MEAN CORPUSCULAR HGB CONC 34.3 (31.8-35.4); MEAN CORPUSCULAR VOLUME 94.6 fl (81.0-99.0); MONOCYTES # (AUTO) 0.6 K/uL (0.4-2.0); MONOCYTES % (AUTO) 8.7 (0-10); NEUTROPHILS # (AUTO) 5.7 K/ul (2.0-6.9); NEUTROPHILS % (AUTO) 77.6; PLATELET COUNT 339 10^3/uL (140-440); RED BLOOD COUNT 2.99 10^6/ul (4.20-5.40); WHITE BLOOD COUNT 7.32 K/ul (4.6-10.2)
[2017-05-28] MEDS: DUONEB NEB SCH ×4 (04:58→23:42)
[2017-05-28] MEDS: SOLU-CORTEF 250 MG IVP SCH ×3 (04:59→20:12)
[2017-05-28 05:13] LABS: ALBUMIN 2.4 g/dL (3.4-5.0); ALBUMIN/GLOBULIN RATIO 0.69; ANION GAP 12.7; BILIRUBIN,TOTAL 0.2 mg/dL (0.00-1.20); BUN/CREATININE RATIO 19.4; CALCIUM 9.6 mg/dL (8.2-10.2); CREATININE 0.67 mg/dL (0.60-1.30); TOTAL PROTEIN 5.9 g/dL (6.4-8.2)
[2017-05-28 05:26] LABS: POTASSIUM 2.7 mmol/L (3.5-5.10)
[2017-05-28] MEDS: TUSSIONEX PO SCH ×2 (09:18→20:12)
[2017-05-28] MEDS: ROCEPHIN 1 GM in SODIUM CHLORIDE 50 ML IV SCH (09:18)
[2017-05-28] MEDS: D5%-1/2NS-KCL 40 MEQ/L IV SOL 1,000 ML IV SCH (09:18)
[2017-05-28] MEDS: LOPRESSOR PO SCH ×2 (09:19→17:34)
[2017-05-28] MEDS: TYLENOL PO PRN (09:19)
[2017-05-28] MEDS: HYDROCHLOROTHIAZIDE PO SCH (09:19)
[2017-05-28] MEDS: K-DUR PO SCH ×3 (09:19→17:35)
--- NOTE | 2017-05-28 09:35 | PN ---
DATE OF SERVICE: 05/26/17 ADMIT NOTE SUBJECTIVE: 45 year old white female. I saw her in the emergency room and was hospitalized with diagnosis of pneumonia. The patient was seen and examined in the emergency room 5 days ago she was transferred to [facility] with respiratory failure and overdose on some medications. The patient signed out AMA. Today the patient's complaint it cough, congestion, weakness. PHYSICAL EXAMINATION: HEENT: Head normocephalic, atraumatic. Eyes: Extraocular muscles are intact. Pupils are equal, round and reactive to light and accommodation. Ears: No lesions. Nose appeared normal. Throat: No exudate or erythema. NECK: Supple. No JVP, no carotid bruit. No lymphadenopathy or thyromegaly. LUNGS: Decreased breath sounds but good air entry. Crepitations dry and present in both bases. Percussion note normal. Chest symmetrical. HEART: S1, S2, no S3. No murmurs. No cyanosis or clubbing. No ascites. Pulses: Dorsalis pedis and posterior tibial pulses +1 to +2 both sides. ABDOMEN: Soft. Nontender. Bowel sounds active. No CVA tenderness. No mass felt. EXTREMITIES: No edema. Full range of motion of all extremities, equal. NEUROLOGIC: No focal deficit. Cranial nerves II through XII are grossly intact. No headache, no double vision or headache. SKIN: Not dry. Intact. Turgor - normal. LYMPHATIC: No palpable lymph nodes/no lymphedema. MUSCULOSKELETAL: Normal joints with no swelling. Muscle tone is normal. LABS: Telemetry sinus rhythm, rate 96 per minute. ABG's pending. Oxygen saturation 96- 97% on room air. CT of the chest showed pneumonia. ASSESSMENT: 1. Pneumonia 2. Chronic lung disease 3. Drug abuse PLAN: 1. Give IV fluids 2. IV antibiotics Rocephin, Zithromax and NEBS treatment and steroids 3. Smoking counseling done 4. Watch for DT's or drug withdraw. Likely the patient has been off medications for past 6-7 days. The patient said that she did that on Wednesday because she had a lot of anxiety and tension. The father is critically ill and he is one of the hospitals in [place] and the sister is recently diagnosed to have liver cancer. The patient's thought process is normal and she has normal behavior. CONDITION: Stable TIME SPENT: More than 30 minutes. Plan and coordination of the patient's care discussed in the presence of nurse. SANDHYA
--- NOTE | 2017-05-28 10:17 | PCM.PROG ---
Attending Provider: ATTENDING PROVIDER: [facility] This patient is seen with Angelina Singh, Nurse Practitioner. DATE OF SERVICE: 05/28/17 SUBJECTIVE: This 56 year old WHITE/ F was hospitalized 05/26/17. The patient is lying in bed, is alert. She states she had been having diarrhea but has since stopped. Appetite is improved. REVIEW OF SYSTEMS: CONSTITUTIONAL: No night sweats. No fatigue, malaise, lethargy. No fever or chills. HEENT: Eyes: No visual changes. No eye pain. No eye discharge. ENT: No runny nose. No epistaxis. No sinus pain. No odynophagia. No congestion. RESPIRATORY: Coughing. No congestion. No hemoptysis. No shortness of breath. CARDIOVASCULAR: No angina symptoms. No CHF symptoms. Pleuritic chest pain. No palpitations. No orthopnea.. GASTROINTESTINAL: No abdominal pain. No nausea or vomiting. No diarrhea or constipation. No hematemesis. No hematochezia. GENITOURINARY: No urgency. No frequency. No dysuria. No hematuria. No obstructive symptoms. No discharge. No pain. No significant abnormal bleeding. MUSCULOSKELETAL: No musculoskeletal pain; no joint swelling. NEUROLOGICAL: Awake, alert, oriented to time, place and person. No headache. No neck pain. No syncope. No seizures. No dizziness. PSYCHIATRIC: Not anxious. No depression. No suicidal thoughts. No homicidal thoughts. SKIN: No rash. No lesions. No wounds. ENDOCRINE: No unexplained weight loss. No weight gain. HEMATOLOGIC/LYMPHATIC: No anemia. No purpura. No petechiae. No prolonged or excessive bleeding. No palpable lymph nodes. PHYSICAL EXAMINATION: GENERAL: The patient is awake, alert and oriented, lying/sitting in bed in no distress. VITAL SIGNS: Temperature 98.6 F, Pulse 63, Respiratory Rate 15, BP 119/68, Pulse Ox 96% HEENT: Head normocephalic, atraumatic. Eyes: Extraocular muscles are intact. Pupils are equal, round and reactive to light and accommodation. Ears: No lesions. Nose appeared normal. Throat: No exudate or erythema. NECK: Supple. No JVD, no carotid bruit. No lymphadenopathy or thyromegaly. LUNGS: Diminished breath sounds bilaterally. Clear to auscultation. Percussion note normal. Chest symmetrical. HEART: S1, S2, no S3. No murmurs. No cyanosis or clubbing. No ascites. Pulses: Dorsalis pedis and posterior tibial pulses +1 to +2 both sides. ABDOMEN: Soft. Non-tender. Bowel sounds active. No CVA tenderness. No mass felt. EXTREMITIES: No edema. Full range of motion of all extremities, equal. NEUROLOGIC: No focal deficit. Cranial nerves II through XII are grossly intact. No headache, no double vision or headache. SKIN: Not dry. Intact. Turgor-normal. LYMPHATIC: No palpable lymph nodes/no lymphedema. MUSCULOSKELETAL: Normal joints with no swelling. Muscle tone is normal. LAB REVIEW: 05/28/17 04:31 05/28/17 04:31 05/28/17 04:31: Sodium 139, Potassium 2.7 L*, Chloride 101, Carbon Dioxide 28, Anion Gap 12.7, BUN 13, Creatinine 0.67, Estimated GFR (MDRD) 91.00, BUN/ Creatinine Ratio 19.40, Glucose 175 H, Calcium 9.6, Total Bilirubin 0.20, AST 12 L, ALT 17, Alkaline Phosphatase 37 L, Total Protein 5.9 L, Albumin 2.4 L, Globulin 3.5, Albumin/Globulin Ratio 0.69 05/28/17 04:31: WBC 7.32, RBC 2.99 L, Hgb 9.7 L, Hct 28.3 L, MCV 94.6, MCH 32.4 H, MCHC 34.3, RDW Coeff of Sheryl 13.2, Plt Count 339, Immature Gran % (Auto) 1.5, Neut % (Auto) 77.6, Lymph % (Auto) 11.9, [place] % (Auto) 8.7, Eos % (Auto) 0.0, Baso % (Auto) 0.3, Immature Gran # (Auto) 0.1, Neut # 5.7, Lymph # 0.9, [place] # 0.6, Eos # 0.0, Baso # 0.0 05/27/17 04:56: Thyroxine (T4) 7.0 ASSESSMENT: 1. Bilateral pneumonia 2. Hypokalemia 3. Smoker 4. History of substance abuse 5. History of noncompliance PLAN: 1. Potassium 40 mEq in IV fluids 2. Potassium 40 mEq p.o. t.i.d. 3. Robitussin q.6hr p.r.n. Plan and coordination of the patient's care discussed in the presence of Dial Buffer and nurse. CONDITION: Stable SCRIBED BY: FLORIDALMA LINDER Signals Intelligence Analyst scribed while in presence of service performed by Dr. Schulz/Angelina Singh APRN on 05/28/17 ([id number])
[2017-05-28] MEDS: ZITHROMAX 500 MG in SODIUM CHLORIDE 250 ML IV SCH (11:19)
[2017-05-28] MEDS: XANAX PO PRN ×2 (14:21→20:12)
[2017-05-28] MEDS ORDERED: ULTRAM PO PRN (22:42)
[2017-05-28] MEDS: ULTRAM PO PRN (23:01)
[2017-05-29] MEDS: SOLU-CORTEF 250 MG IVP SCH ×3 (04:27→21:00)
[2017-05-29 04:49] LABS: HEMATOCRIT 28.7 % (37.0-47.0); HEMOGLOBIN 9.7 g/dl (12.0-16.0); MEAN CORPUSCULAR HEMOGLOBIN 32.2 pg (27.0-31.0); MEAN CORPUSCULAR HGB CONC 33.8 (31.8-35.4); MEAN CORPUSCULAR VOLUME 95.3 fl (81.0-99.0); PLATELET COUNT 398 10^3/uL (140-440); RED BLOOD COUNT 3.01 10^6/ul (4.20-5.40); WHITE BLOOD COUNT 8.49 K/ul (4.6-10.2)
[2017-05-29] MEDS: DUONEB NEB SCH ×4 (05:03→23:30)
[2017-05-29 05:15] LABS: ANISOCYTOSIS NOT PRESENT (NOT PRESENT)
[2017-05-29 05:25] LABS: ALBUMIN 2.4 g/dL (3.4-5.0); ALBUMIN/GLOBULIN RATIO 0.71; ANION GAP 9.5; BILIRUBIN,TOTAL 0.17 mg/dL (0.00-1.20); CALCIUM 9.6 mg/dL (8.2-10.2); CREATININE 0.72 mg/dL (0.60-1.30); POTASSIUM 3.5 mmol/L (3.5-5.10); TOTAL PROTEIN 5.8 g/dL (6.4-8.2)
[2017-05-29] MEDS: D5%-1/2NS-KCL 40 MEQ/L IV SOL 1,000 ML IV SCH ×2 (07:10→14:01)
[2017-05-29] MEDS: ULTRAM PO PRN ×2 (08:04→21:01)
[2017-05-29] MEDS: LOPRESSOR PO SCH ×2 (08:04→16:44)
[2017-05-29] MEDS: ROCEPHIN 1 GM in SODIUM CHLORIDE 50 ML IV SCH (08:05)
[2017-05-29] MEDS: HYDROCHLOROTHIAZIDE PO SCH (08:05)
[2017-05-29] MEDS: NICODERM 21 MG TD SCH (08:05)
[2017-05-29] MEDS: K-DUR PO SCH ×3 (09:52→16:44)
[2017-05-29] MEDS: TUSSIONEX PO SCH ×2 (09:52→20:59)
[2017-05-29] MEDS: XANAX PO PRN ×2 (11:57→21:01)
[2017-05-30 04:43] LABS: HEMATOCRIT 30.3 % (37.0-47.0); HEMOGLOBIN 10.3 g/dl (12.0-16.0); MEAN CORPUSCULAR HEMOGLOBIN 32.7 pg (27.0-31.0); MEAN CORPUSCULAR VOLUME 96.2 fl (81.0-99.0); PLATELET COUNT 431 10^3/uL (140-440); RED BLOOD COUNT 3.15 10^6/ul (4.20-5.40); WHITE BLOOD COUNT 11.26 K/ul (4.6-10.2)
[2017-05-30 04:44] LABS: IMMATURE RETIC FRACTION 21.1; RETICULOCYTE % 2.69 %
[2017-05-30 04:50] LABS: ANISOCYTOSIS NOT PRESENT (NOT PRESENT)
[2017-05-30 05:05] LABS: ALBUMIN 2.5 g/dL (3.4-5.0); ALBUMIN/GLOBULIN RATIO 0.83; ANION GAP 14.6; BILIRUBIN,TOTAL 0.17 mg/dL (0.00-1.20); BUN/CREATININE RATIO 25.35; CALCIUM 9.5 mg/dL (8.2-10.2); CREATININE 0.71 mg/dL (0.60-1.30); POTASSIUM 3.6 mmol/L (3.5-5.10); TOTAL PROTEIN 5.5 g/dL (6.4-8.2)
[2017-05-30] MEDS: DUONEB NEB SCH ×4 (05:28→23:26)
[2017-05-30 05:30] LABS: FERRITIN 362.83 ng/mL (4.63-204.00); FOLATE 5.4 ng/mL (3.1-20.5)
[2017-05-30] MEDS: SOLU-CORTEF 250 MG IVP SCH ×3 (05:34→20:01)
[2017-05-30] MEDS: HYDROCHLOROTHIAZIDE PO SCH (09:21)
[2017-05-30] MEDS: XANAX PO PRN ×2 (09:21→20:01)
[2017-05-30] MEDS: LOPRESSOR PO SCH ×2 (09:21→17:17)
[2017-05-30] MEDS: K-DUR PO SCH ×3 (09:21→17:17)
[2017-05-30] MEDS: ROCEPHIN 1 GM in SODIUM CHLORIDE 50 ML IV SCH (09:21)
[2017-05-30] MEDS: TUSSIONEX PO SCH ×2 (09:21→20:01)
[2017-05-30] MEDS: NICODERM 21 MG TD SCH (09:25)
[2017-05-30] MEDS: D5%-1/2NS-KCL 40 MEQ/L IV SOL 1,000 ML IV SCH (10:42)
[2017-05-30] MEDS: ULTRAM PO PRN ×2 (12:23→20:01)
[2017-05-31] MEDS: ULTRAM PO PRN ×2 (04:12→22:43)
[2017-05-31] MEDS: SOLU-CORTEF 250 MG IVP SCH (04:24)
[2017-05-31] MEDS: XANAX PO PRN ×3 (04:24→22:43)
[2017-05-31 05:17] LABS: BASOPHILS % (AUTO) 0.2 % (0.0-3.0); HEMATOCRIT 31.7 % (37.0-47.0); HEMOGLOBIN 10.7 g/dl (12.0-16.0); IMMATURE GRANULOCYTE % (AUTO) 3.7 % (0.0-5.0); LYMPHOCYTES # (AUTO) 1.5 K/uL (0.60-3.4); LYMPHOCYTES % (AUTO) 8.6 (10.0-50.0); MEAN CORPUSCULAR HEMOGLOBIN 32.3 pg (27.0-31.0); MEAN CORPUSCULAR HGB CONC 33.8 (31.8-35.4); MEAN CORPUSCULAR VOLUME 95.8 fl (81.0-99.0); MONOCYTES # (AUTO) 0.9 K/uL (0.4-2.0); MONOCYTES % (AUTO) 5.3 (0-10); NEUTROPHILS # (AUTO) 14.3 K/ul (2.0-6.9); NEUTROPHILS % (AUTO) 82.2; PLATELET COUNT 504 10^3/uL (140-440); RED BLOOD COUNT 3.31 10^6/ul (4.20-5.40); WHITE BLOOD COUNT 17.42 K/ul (4.6-10.2)
[2017-05-31] MEDS: DUONEB NEB SCH ×4 (05:31→23:31)
[2017-05-31 05:37] LABS: ALBUMIN 2.5 g/dL (3.4-5.0); ALBUMIN/GLOBULIN RATIO 0.89; ANION GAP 13.2; BILIRUBIN,TOTAL 0.24 mg/dL (0.00-1.20); BUN/CREATININE RATIO 25.37; CALCIUM 9.4 mg/dL (8.2-10.2); CREATININE 0.67 mg/dL (0.60-1.30); POTASSIUM 3.2 mmol/L (3.5-5.10); TOTAL PROTEIN 5.3 g/dL (6.4-8.2)
--- NOTE | 2017-05-31 09:13 | PCM.PROG ---
Attending Provider: ATTENDING PROVIDER: [facility] This patient is seen with Angelina Singh, Nurse Practitioner. DATE OF SERVICE: 05/31/17 SUBJECTIVE: This 56 year old WHITE/ F was hospitalized 05/26/17. The patient is lying in bed, alert. She states cough is better. She had diarrhea twice through the night and twice this am. Potassium 3.2 today. REVIEW OF SYSTEMS: CONSTITUTIONAL: No night sweats. No fatigue, malaise, lethargy. No fever or chills. HEENT: Eyes: No visual changes. No eye pain. No eye discharge. ENT: No runny nose. No epistaxis. No sinus pain. No odynophagia. No congestion. RESPIRATORY: Cough. No congestion. No hemoptysis. No shortness of breath. CARDIOVASCULAR: No angina symptoms. No CHF symptoms. No atypical chest pain for CAD. No palpitations. No orthopnea.. GASTROINTESTINAL: Diarrhea. No abdominal pain. No nausea or vomiting. No hematemesis. No hematochezia. GENITOURINARY: No urgency. No frequency. No dysuria. No hematuria. No obstructive symptoms. No discharge. No pain. No significant abnormal bleeding. MUSCULOSKELETAL: No musculoskeletal pain; no joint swelling. NEUROLOGICAL: Awake, alert, oriented to time, place and person. No headache. No neck pain. No syncope. No seizures. No dizziness. PSYCHIATRIC: Not anxious. No depression. No suicidal thoughts. No homicidal thoughts. SKIN: No rash. No lesions. No wounds. ENDOCRINE: No unexplained weight loss. No weight gain. HEMATOLOGIC/LYMPHATIC: No anemia. No purpura. No petechiae. No prolonged or excessive bleeding. No palpable lymph nodes. PHYSICAL EXAMINATION: GENERAL: The patient is awake, alert and oriented, lying in bed in no distress. VITAL SIGNS: Temperature 98.4 F, Pulse 47, Respiratory Rate 18, BP 146/69, Pulse Ox 96% HEENT: Head normocephalic, atraumatic. Eyes: Extraocular muscles are intact. Pupils are equal, round and reactive to light and accommodation. Ears: No lesions. Nose appeared normal. Throat: No exudate or erythema. NECK: Supple. No JVD, no carotid bruit. No lymphadenopathy or thyromegaly. LUNGS: Rhonchi bilaterally improved. Percussion note normal. Chest symmetrical. HEART: S1, S2, no S3. No murmurs. No cyanosis or clubbing. No ascites. Pulses: Dorsalis pedis and posterior tibial pulses +1 to +2 both sides. ABDOMEN: Soft. Non-tender. Bowel sounds active. No CVA tenderness. No mass felt. EXTREMITIES: No edema. Full range of motion of all extremities, equal. NEUROLOGIC: No focal deficit. Cranial nerves II through XII are grossly intact. No headache, no double vision or headache. SKIN: Not dry. Intact. Turgor-normal. LYMPHATIC: No palpable lymph nodes/no lymphedema. MUSCULOSKELETAL: Normal joints with no swelling. Muscle tone is normal. LAB REVIEW: 05/31/17 04:44 05/31/17 04:44 05/31/17 04:44: Sodium 139, Potassium 3.2 L, Chloride 99, Carbon Dioxide 30, Anion Gap 13.2, BUN 17, Creatinine 0.67, Estimated GFR (MDRD) 91.00, BUN/ Creatinine Ratio 25.37, Glucose 131 H, Calcium 9.4, Total Bilirubin 0.24, AST 26 , ALT 63, Alkaline Phosphatase 41 L, Total Protein 5.3 L, Albumin 2.5 L, Globulin 2.8, Albumin/Globulin Ratio 0.89 05/31/17 04:44: WBC 17.42 H D, RBC 3.31 L, Hgb 10.7 L, Hct 31.7 L, MCV 95.8, MCH 32.3 H, MCHC 33.8, RDW Coeff of Sheryl 13.7, Plt Count 504 H, Immature Gran % ( Auto) 3.7, Neut % (Auto) 82.2, Lymph % (Auto) 8.6 L, [place] % (Auto) 5.3, Eos % ( Auto) 0.0, Baso % (Auto) 0.2, Immature Gran # (Auto) 0.6, Neut # 14.3 H, Lymph # 1.5, [place] # 0.9, Eos # 0.0, Baso # 0.0 ASSESSMENT: 1. Bilateral pneumonia 2. Hypokalemia 3. Smoker 4. History of substance abuse 5. History of noncompliance 6. Hepatitis C positive 7. Anemia PLAN: 1. Repeat chest x-ray today 2. Prednisone 10 mg b.i.d. Plan and coordination of the patient's care discussed in the presence of Pizza Baker and nurse. CONDITION: Stable SCRIBED BY: FLORIDALMA LINDER Repair Welder scribed while in presence of service performed by Dr. Schulz/Angelina Singh APRN on 05/31/17 ([id number])
[2017-05-31] MEDS: K-DUR PO SCH ×3 (09:32→17:09)
[2017-05-31] MEDS: NICODERM 21 MG TD SCH (09:33)
[2017-05-31] MEDS: TUSSIONEX PO SCH ×2 (09:33→22:43)
[2017-05-31] MEDS: HYDROCHLOROTHIAZIDE PO SCH (09:33)
[2017-05-31] MEDS: LOPRESSOR PO SCH ×2 (09:33→17:09)
[2017-05-31] MEDS: ROCEPHIN 1 GM in SODIUM CHLORIDE 50 ML IV SCH (10:31)
--- NOTE | 2017-05-31 10:39 | PN ---
DATE OF SERVICE: 05/31/17 SUBJECTIVE: 56-year-old white female hospitalized with pneumonia. The patient's potassium is coming up slowly, 3.2 now. K-Dur 20 mEq t.i.d. daily. She is feeling better. The diarrhea is much less. Appetite has improved. She looks a lot better. REVIEW OF SYSTEMS: CONSTITUTIONAL: No night sweats. No fatigue, malaise, lethargy. No fever or chills. HEENT: Eyes: No visual changes. No eye pain. No eye discharge. ENT: No runny nose. No epistaxis. No sinus pain. No sore throat. No odynophagia. No congestion. RESPIRATORY: Mild cough, no congestion. No hemoptysis. No shortness of breath. No PND. CARDIOVASCULAR: No angina symptoms. No CHF symptoms. No atypical chest pain for CAD. No palpitations. No orthopnea. GASTROINTESTINAL: No abdominal pain. No nausea or vomiting. No diarrhea or constipation. No hematemesis. No hematochezia. GENITOURINARY: No urgency. No frequency. No dysuria. No hematuria. No obstructive symptoms. No discharge. No pain. No significant abnormal bleeding. MUSCULOSKELETAL: No musculoskeletal pain; no joint swelling. NEUROLOGICAL: No headache. No neck pain. No syncope. No seizures. No dizziness. PSYCHIATRIC: Not anxious. No depression. No suicidal thoughts. No homicidal thoughts. SKIN: No rash. No lesions. No wounds. ENDOCRINE: No unexplained weight loss. No weight gain. HEMATOLOGIC/LYMPHATIC: Anemia. No purpura. No petechiae. No prolonged or excessive bleeding. No palpable lymph nodes. PHYSICAL EXAMINATION: GENERAL: The patient is oriented to time, place and person, lying in bed in no distress. HEENT: Head normocephalic, atraumatic. Eyes: Extraocular muscles are intact. Pupils are equal, round and reactive to light and accommodation. Ears: No lesions. Nose appeared normal. Throat: No exudate or erythema. NECK: Supple. No JVD, no carotid bruit. No lymphadenopathy or thyromegaly. LUNGS: Clear to auscultation. Percussion note normal. Chest symmetrical. HEART: S1, S2, no S3. No murmurs. No cyanosis or clubbing. No ascites. Pulses: Dorsalis pedis and posterior tibial pulses +1 to +2 both sides. ABDOMEN: Soft. Nontender. Bowel sounds active. No CVA tenderness. No mass felt. EXTREMITIES: No edema. Full range of motion of all extremities, equal. NEUROLOGIC: No focal deficit. Cranial nerves II through XII are grossly intact. No headache, no double vision or headache. SKIN: Not dry. Intact. Turgor - normal. LYMPHATIC: No palpable lymph nodes/no lymphedema. MUSCULOSKELETAL: Normal joints with no swelling. Muscle tone is normal. ASSESSMENT: 1. PNEUMONITIS/PNEUMONIA 2. CHRONIC LUNG DISEASE 3. ANEMIA PLAN: 1. Continue antibiotics, steroids and nebs treatment. 2. Anemia profile pending. 3. A1C pending. CONDITION: STABLE TIME SPENT: More than 30 minutes. Plan and coordination of the patient's care discussed in the presence of nurse. SANDHYA
--- NOTE | 2017-05-31 11:23 | PN ---
DATE OF SERVICE: 05/27/17 SUBJECTIVE: 56 year old white hospitalized with pneumonia. The patient's condition has steadily improved and she does not have any withdraw from any medications, drug , etc. PHYSICAL EXAMINATION: GENERAL: The patient is oriented to time, place and person. VITAL SIGNS: Temperature 98, pulse 88, respiratory rate 17, blood pressure 123/ 73 and pulse ox 96%. HEENT: Head normocephalic, atraumatic. Eyes: Extraocular muscles are intact. Pupils are equal, round and reactive to light and accommodation. Ears: No lesions. Nose appeared normal. Throat: No exudate or erythema. NECK: Supple. No JVD, no carotid bruit. No lymphadenopathy or thyromegaly. LUNGS: Decreased breath sounds but clear to auscultation. Percussion note normal. Chest symmetrical. HEART: S1, S2, no S3. No murmurs. No cyanosis or clubbing. No ascites. Pulses: Dorsalis pedis and posterior tibial pulses +1 to +2 both sides. ABDOMEN: Soft. Nontender. Bowel sounds active. No CVA tenderness. No mass felt. Ribs are still sore. EXTREMITIES: No edema. Full range of motion of all extremities, equal. NEUROLOGIC: No focal deficit. Cranial nerves II through XII are grossly intact. No headache, no double vision or headache. SKIN: Not dry. Intact. Turgor - normal. LYMPHATIC: No palpable lymph nodes/no lymphedema. MUSCULOSKELETAL: Normal joints with no swelling. Muscle tone is normal. LABS: Hgb 10.5, hct 30, WBC 30,800 normal differential, creatinine 0.6, BUN 10, Glucose 179. ASSESSMENT: 1. Pneumonia seems to be resolving clinically looks better 2. Hydration status has improved. PLAN: 1. Continue NEBS treatment 2. Antibiotics 3. Steroids 4. Strongly advised to quit smoking 5. Counseling for smoking done. The patient was seen and examined with Nurse Practitioner. TIME SPENT: More than 30 minutes. Plan and coordination of the patient's care discussed in the presence of nurse. SANDHYA
--- NOTE | 2017-05-31 11:29 | PN ---
DATE OF SERVICE: 05/30/17 SUBJECTIVE: 56-year-old white female hospitalized with pneumonia. The patient's condition seems to be improving. The patient is feeling a lot better. She is eating better. Mild cough. No congestion. She has stopped smoking. No withdrawals. REVIEW OF SYSTEMS: CONSTITUTIONAL: No distress. No night sweats. No fatigue, malaise, lethargy. No fever or chills. HEENT: Eyes: No visual changes. No eye pain. No eye discharge. ENT: No runny nose. No epistaxis. No sinus pain. No sore throat. No odynophagia. No congestion. RESPIRATORY: Mild cough and congestion. No hemoptysis. No shortness of breath. No PND. CARDIOVASCULAR: No angina symptoms. No CHF symptoms. No atypical chest pain for CAD. No palpitations. No orthopnea. Pleuritic pain is much less. Rib cage pain is much less. GASTROINTESTINAL: Appetite improved. No abdominal pain. No nausea or vomiting. No diarrhea or constipation. No hematemesis. No hematochezia. GENITOURINARY: No urgency. No frequency. No dysuria. No hematuria. No obstructive symptoms. No discharge. No pain. No significant abnormal bleeding. MUSCULOSKELETAL: No musculoskeletal pain; no joint swelling. NEUROLOGICAL: No headache. No neck pain. No syncope. No seizures. No dizziness. PSYCHIATRIC: Not anxious. No depression. No suicidal thoughts. No homicidal thoughts. SKIN: No rash. No lesions. No wounds. ENDOCRINE: No unexplained weight loss. No weight gain. HEMATOLOGIC/LYMPHATIC: No anemia. No purpura. No petechiae. No prolonged or excessive bleeding. No palpable lymph nodes. PHYSICAL EXAMINATION: VITAL SIGNS: Temperature 98.1, pulse 47/min, respiratory rate 20, BP 149/71. Pulse ox 98%. HEENT: Head normocephalic, atraumatic. Eyes: Extraocular muscles are intact. Pupils are equal, round and reactive to light and accommodation. Ears: No lesions. Nose appeared normal. Throat: No exudate or erythema. NECK: Supple. No JVD, no carotid bruit. No lymphadenopathy or thyromegaly. LUNGS: Decreased breath sounds. Clear to auscultation. Percussion note normal. Chest symmetrical. HEART: S1, S2, no S3. No murmurs. No cyanosis or clubbing. No ascites. Pulses: Dorsalis pedis and posterior tibial pulses +1 to +2 both sides. ABDOMEN: Soft. Nontender. Bowel sounds active. No CVA tenderness. No mass felt. EXTREMITIES: No edema. Full range of motion of all extremities, equal. NEUROLOGIC: No focal deficit. Cranial nerves II through XII are grossly intact. No headache, no double vision or headache. SKIN: Not dry. Intact. Turgor - normal. LYMPHATIC: No palpable lymph nodes/no lymphedema. MUSCULOSKELETAL: Normal joints with no swelling. Muscle tone is normal. LABS: Hemoglobin 10.3, hematocrit 32, WBC 11,000, normal differential. Creatinine 0.7 , BUN 18, potassium 3.7. ASSESSMENT: 1. ACUTE PNEUMONITIS/PNEUMONIA SEEMS TO BE IMPROVING 2. CHRONIC LUNG DISEASE 3. HISTORY OF DRUG ABUSE 4. ANEMIA 5. HYPERGLYCEMIA COULD BE FROM STEROIDS PLAN: 1. Continue antibiotics, nebs treatment, steroids. 2. May do a chest x-ray in the morning. 3. D/C IV fluids. 4. PFT to be done before discharge. CONDITION: Stable TIME SPENT: More than 30 minutes. Plan and coordination of the patient's care discussed in the presence of nurse. SANDHYA
--- NOTE | 2017-05-31 11:49 | PN ---
DATE OF SERVICE: 05/29/17 SUBJECTIVE: 56-year-old white female hospitalized with pneumonia. The patient's condition has steadily improved. The patient has been going out to smoke. REVIEW OF SYSTEMS: CONSTITUTIONAL: Strength has improved. No night sweats. No fatigue, malaise, lethargy. No fever or chills. HEENT: Eyes: No visual changes. No eye pain. No eye discharge. ENT: No runny nose. No epistaxis. No sinus pain. No sore throat. No odynophagia. No congestion. RESPIRATORY: Less cough and congestion. No hemoptysis. No shortness of breath. No PND. CARDIOVASCULAR: No angina symptoms. No CHF symptoms. No atypical chest pain for CAD. No palpitations. No orthopnea. GASTROINTESTINAL: Appetite has improved. No abdominal pain. No nausea or vomiting. No diarrhea or constipation. No hematemesis. No hematochezia. GENITOURINARY: No urgency. No frequency. No dysuria. No hematuria. No obstructive symptoms. No discharge. No pain. No significant abnormal bleeding. MUSCULOSKELETAL: No musculoskeletal pain; no joint swelling. NEUROLOGICAL: No headache. No neck pain. No syncope. No seizures. No dizziness. PSYCHIATRIC: Not anxious. No depression. No suicidal thoughts. No homicidal thoughts. SKIN: No rash. No lesions. No wounds. ENDOCRINE: No unexplained weight loss. No weight gain. HEMATOLOGIC/LYMPHATIC: Anemia. No purpura. No petechiae. No prolonged or excessive bleeding. No palpable lymph nodes. PHYSICAL EXAMINATION: VITAL SIGNS: Temperature 97.2, pulse 75, respiratory rate 26, BP 140/80. Pulse ox 94%. HEENT: Head normocephalic, atraumatic. Eyes: Extraocular muscles are intact. Pupils are equal, round and reactive to light and accommodation. Ears: No lesions. Nose appeared normal. Throat: No exudate or erythema. NECK: Supple. No JVD, no carotid bruit. No lymphadenopathy or thyromegaly. LUNGS: Decreased breath sounds but good air entry. Clear to auscultation. Percussion note normal. Chest symmetrical. HEART: S1, S2, no S3. No murmurs. No cyanosis or clubbing. No ascites. Pulses: Dorsalis pedis and posterior tibial pulses +1 to +2 both sides. ABDOMEN: Soft. Nontender. Bowel sounds active. No CVA tenderness. No mass felt. EXTREMITIES: No edema. Full range of motion of all extremities, equal. NEUROLOGIC: No focal deficit. Cranial nerves II through XII are grossly intact. No headache, no double vision or headache. SKIN: Not dry. Intact. Turgor - normal. LYMPHATIC: No palpable lymph nodes/no lymphedema. MUSCULOSKELETAL: Normal joints with no swelling. Muscle tone is normal. LABS: Hemoglobin 9.7, hematocrit 28, WBC 8,400, normal differential. Creatinine 0.7, BUN 18, potassium 3.5. ASSESSMENT: 1. PNEUMONIA SEEMS TO BE RESOLVING 2. CHRONIC LUNG DISEASE 3. HISTORY OF DRUG ABUSE 4. ANEMIA PLAN: 1. Continue steroids, nebs treatment, antibiotics. 2. Counseling for smoking done. 3. The patient refusing to take any help for drug abuse or alcohol abuse. She is oriented to time, place and person. 4. For anemia, advised GI workup for which the patient declined. Also advised colonoscopy which she has declined. TIME SPENT: More than 30 minutes. CONDITION: Stable Plan and coordination of the patient's care discussed in the presence of nurse. SANDHYA
--- NOTE | 2017-05-31 13:54 | PN ---
DATE OF SERVICE: 05/28/17 SUBJECTIVE: The patient was hospitalized with pneumonia. The patient's pneumonia seems to be improving clinically. The patient new probably is hypokalemia with potassium of 2.7. The patient is going to be given 40meq PO potassium three times a day along with 40meq Potassium in IV bag. Her condition is improving and her cough will be treated with Tussionex and she will be off Morphine sulfate. PHYSICAL EXAMINATION: HEENT: Head normocephalic, atraumatic. Eyes: Extraocular muscles are intact. Pupils are equal, round and reactive to light and accommodation. Ears: No lesions. Nose appeared normal. Throat: No exudate or erythema. NECK: Supple. No JVD, no carotid bruit. No lymphadenopathy or thyromegaly. LUNGS: Decreased breath sounds but clear to auscultation. Percussion note normal. Chest symmetrical. HEART: S1, S2, no S3. No murmurs. No cyanosis or clubbing. No ascites. Pulses: Dorsalis pedis and posterior tibial pulses +1 to +2 both sides. ABDOMEN: Soft. Nontender. Bowel sounds active. No CVA tenderness. No mass felt. EXTREMITIES: No edema. Full range of motion of all extremities, equal. NEUROLOGIC: No focal deficit. Cranial nerves II through XII are grossly intact. No headache, no double vision or headache. SKIN: Not dry. Intact. Turgor - normal. LYMPHATIC: No palpable lymph nodes/no lymphedema. MUSCULOSKELETAL: Normal joints with no swelling. Muscle tone is normal. The patient was seen and examined with Nurse Practitioner. CONDITION: Stable TIME SPENT: More than 30 minutes. Plan and coordination of the patient's care discussed in the presence of nurse. SANDHYA
--- NOTE | 2017-05-31 14:20 | DI ---
EXAM: Two views of the chest. History: Follow-up pneumonia. Comparison: Chest radiograph 05/26/2017 Findings: Heart size is normal. Increasing left lower lobe consolidation. Small left pleural effus ion. No pneumothorax. No acute osseous abnormalities. Impression: Worsening left lower lobe pneumonia and small left pleural effusion.
[2017-05-31] MEDS: PREDNISONE PO SCH (17:09)
[2017-05-31] MEDS: VANCOMYCIN 1 GM in SODIUM CHLORIDE 250 ML IV SCH (17:09)
[2017-06-01 05:04] LABS: BASOPHILS % (AUTO) 0.2 % (0.0-3.0); EOSINOPHILS % (AUTO) 0.2 % (0.0-7.0); HEMATOCRIT 33.8 % (37.0-47.0); HEMOGLOBIN 11.4 g/dl (12.0-16.0); IMMATURE GRANULOCYTE % (AUTO) 3.1 % (0.0-5.0); LYMPHOCYTES # (AUTO) 2.5 K/uL (0.60-3.4); LYMPHOCYTES % (AUTO) 17.3 (10.0-50.0); MEAN CORPUSCULAR HEMOGLOBIN 32.7 pg (27.0-31.0); MEAN CORPUSCULAR HGB CONC 33.7 (31.8-35.4); MEAN CORPUSCULAR VOLUME 96.8 fl (81.0-99.0); MONOCYTES % (AUTO) 6.7 (0-10); NEUTROPHILS # (AUTO) 10.6 K/ul (2.0-6.9); NEUTROPHILS % (AUTO) 72.5; PLATELET COUNT 502 10^3/uL (140-440); RED BLOOD COUNT 3.49 10^6/ul (4.20-5.40); WHITE BLOOD COUNT 14.55 K/ul (4.6-10.2)
[2017-06-01] MEDS: VANCOMYCIN 1 GM in SODIUM CHLORIDE 250 ML IV SCH ×2 (05:12→17:34)
[2017-06-01] MEDS: DUONEB NEB SCH ×4 (05:22→21:25)
[2017-06-01 05:25] LABS: ALBUMIN 2.4 g/dL (3.4-5.0); ALBUMIN/GLOBULIN RATIO 0.92; ANION GAP 12.3; BILIRUBIN,TOTAL 0.23 mg/dL (0.00-1.20); BUN/CREATININE RATIO 26.15; CALCIUM 9.4 mg/dL (8.2-10.2); CREATININE 0.65 mg/dL (0.60-1.30); POTASSIUM 3.3 mmol/L (3.5-5.10)
[2017-06-01] MEDS: TUSSIONEX PO SCH ×2 (08:40→20:03)
[2017-06-01] MEDS: ROCEPHIN 1 GM in SODIUM CHLORIDE 50 ML IV SCH (08:40)
[2017-06-01] MEDS: NICODERM 21 MG TD SCH (08:41)
[2017-06-01] MEDS: PREDNISONE PO SCH ×2 (08:41→17:35)
[2017-06-01] MEDS: K-DUR PO SCH ×3 (08:41→17:35)
[2017-06-01] MEDS: ULTRAM PO PRN ×2 (08:42→19:35)
[2017-06-01] MEDS: XANAX PO PRN (08:42)
[2017-06-01] MEDS: HYDROCHLOROTHIAZIDE PO SCH (08:42)
[2017-06-01] MEDS: LOPRESSOR PO SCH ×2 (08:42→17:35)
--- NOTE | 2017-06-01 09:16 | PCM.PROG ---
Attending Provider: ATTENDING PROVIDER: [facility] This patient is seen with Angelina Singh, Nurse Practitioner. DATE OF SERVICE: 06/01/17 SUBJECTIVE: This 56 year old WHITE/ F was hospitalized 05/26/17. The patient is alert, sitting up in bed. Repeat chest x-ray yesterday showed worsening left lobe pneumonia started on Vancomycin. Potassium is improved but still with diarrhea times two during night. REVIEW OF SYSTEMS: CONSTITUTIONAL: No night sweats. No fatigue, malaise, lethargy. No fever or chills. HEENT: Eyes: No visual changes. No eye pain. No eye discharge. ENT: No runny nose. No epistaxis. No sinus pain. No odynophagia. No congestion. RESPIRATORY: Cough. No congestion. No hemoptysis. No shortness of breath. CARDIOVASCULAR: No angina symptoms. No CHF symptoms. No atypical chest pain for CAD. No palpitations. No orthopnea.. GASTROINTESTINAL: Diarrhea. No abdominal pain. No nausea or vomiting. No hematemesis. No hematochezia. GENITOURINARY: No urgency. No frequency. No dysuria. No hematuria. No obstructive symptoms. No discharge. No pain. No significant abnormal bleeding. MUSCULOSKELETAL: No musculoskeletal pain; no joint swelling. NEUROLOGICAL: Awake, alert, oriented to time, place and person. No headache. No neck pain. No syncope. No seizures. No dizziness. PSYCHIATRIC: Anxious. No depression. No suicidal thoughts. No homicidal thoughts. SKIN: No rash. No lesions. No wounds. ENDOCRINE: No unexplained weight loss. No weight gain. HEMATOLOGIC/LYMPHATIC: Anemia. No purpura. No petechiae. No prolonged or excessive bleeding. No palpable lymph nodes. PHYSICAL EXAMINATION: GENERAL: The patient is awake, alert and oriented, lying/sitting in bed in no distress. VITAL SIGNS: Temperature 97.7 F, Pulse 49, Respiratory Rate 16, BP 122/79, Pulse Ox 95% HEENT: Head normocephalic, atraumatic. Eyes: Extraocular muscles are intact. Pupils are equal, round and reactive to light and accommodation. Ears: No lesions. Nose appeared normal. Throat: No exudate or erythema. NECK: Supple. No JVD, no carotid bruit. No lymphadenopathy or thyromegaly. LUNGS: Diminished breath sounds bilaterally. Clear to auscultation. Percussion note normal. Chest symmetrical. HEART: S1, S2, no S3. No murmurs. No cyanosis or clubbing. No ascites. Pulses: Dorsalis pedis and posterior tibial pulses +1 to +2 both sides. ABDOMEN: Soft. Non-tender. Bowel sounds active. No CVA tenderness. No mass felt. EXTREMITIES: No edema. Full range of motion of all extremities, equal. NEUROLOGIC: No focal deficit. Cranial nerves II through XII are grossly intact. No headache, no double vision or headache. SKIN: Not dry. Intact. Turgor-normal. LYMPHATIC: No palpable lymph nodes/no lymphedema. MUSCULOSKELETAL: Normal joints with no swelling. Muscle tone is normal. LAB REVIEW: 06/01/17 05:05 06/01/17 05:05 06/01/17 05:05: Sodium 139, Potassium 3.3 L, Chloride 100, Carbon Dioxide 30, Anion Gap 12.3, BUN 17, Creatinine 0.65, Estimated GFR (MDRD) 95.00, BUN/ Creatinine Ratio 26.15, Glucose 103, Calcium 9.4, Total Bilirubin 0.23, AST 40 H , ALT 81 H, Alkaline Phosphatase 44, Total Protein 5.0 L, Albumin 2.4 L, Globulin 2.6, Albumin/Globulin Ratio 0.92 06/01/17 05:05: WBC 14.55 H, RBC 3.49 L, Hgb 11.4 L, Hct 33.8 L, MCV 96.8, MCH 32.7 H, MCHC 33.7, RDW Coeff of Sheryl 13.8, Plt Count 502 H, Immature Gran % (Auto ) 3.1, Neut % (Auto) 72.5, Lymph % (Auto) 17.3, [place] % (Auto) 6.7, Eos % (Auto) 0.2, Baso % (Auto) 0.2, Immature Gran # (Auto) 0.5, Neut # 10.6 H, Lymph # 2.5, [place] # 1.0, Eos # 0.0, Baso # 0.0 05/30/17 04:39: Transferrin 173 L ASSESSMENT: 1. Bilateral pneumonia, worsening left 2. Hypokalemia 3. Smoker 4. History of substance abuse 5. History of noncompliance 6. Hepatitis C positive 7. Anemia 8. Diarrhea 9. Elevated liver enzymes PLAN: 1. Stool for C. diff 2. GI panel by PCR Plan and coordination of the patient's care discussed in the presence of Tractor Sweeper Operator and nurse. CONDITION: Stable SCRIBED BY: FLORIDALMA LINDER Fire Patrol scribed while in presence of service performed by Dr. Schulz/Angelina Singh APRN on 06/01/17 ([id number])
--- NOTE | 2017-06-01 12:55 | CT ---
EXAM: CT abdomen pelvis with intravenous contrast 06/01/2017. Sagittal and coronal reformatted imag es obtained HISTORY: Diarrhea. Elevated liver enzymes COMPARISON: 05/05/2011 FINDINGS: Small left pleural effusion. Left basilar consolidation may represent atelectasis and/or pneumonia. The liver shows no acute abnormality. Gallbladder has been removed. Stable left adrenal gland mass most compatible with benign adenoma. There is no evidence of urinary obstruction. The kidneys show no acute abnormality. The spleen and pancreas show no acute abnormality. There is no evidence of bowel obstruction. No evidence of appendicitis. No acute abnormality of the urinary bladder. A soft tissue mass is present within the left anterior pelvis. On image 79 this measures approximately 3.1 x 2.6 cm diameter. This appears similar to CT p erformed 05/05/2011. The time course of stability suggests benign etiology. IMPRESSION: 1. Small pleural effusion. Left basilar consolidation may represent atelectasis and/or pneumonia 2. Status post cholecystectomy. 3. Stable benign adenoma of the left adrenal gland. 4. No urinary or bowel obstruction 5. Stable soft tissue mass within the left anterior pelvis. The time course of stability suggests b enign etiology. 6. No acute inflammatory process identified within the abdomen or pelvis.
[2017-06-01] MEDS: ZOFRAN 4 MG/2 ML IVP PRN (19:35)
[2017-06-02] MEDS: ULTRAM PO PRN ×2 (03:07→20:34)
[2017-06-02] MEDS: XANAX PO PRN ×4 (04:37→23:40)
[2017-06-02 05:05] LABS: BASOPHILS % (AUTO) 0.2 % (0.0-3.0); EOSINOPHILS # (AUTO) 0.1 K/ul (0.0-0.7); EOSINOPHILS % (AUTO) 0.4 % (0.0-7.0); HEMATOCRIT 38.2 % (37.0-47.0); HEMOGLOBIN 12.5 g/dl (12.0-16.0); IMMATURE GRANULOCYTE % (AUTO) 2.1 % (0.0-5.0); LYMPHOCYTES # (AUTO) 1.6 K/uL (0.60-3.4); LYMPHOCYTES % (AUTO) 8.5 (10.0-50.0); MEAN CORPUSCULAR HEMOGLOBIN 32.5 pg (27.0-31.0); MEAN CORPUSCULAR HGB CONC 32.7 (31.8-35.4); MEAN CORPUSCULAR VOLUME 99.2 fl (81.0-99.0); MONOCYTES # (AUTO) 0.9 K/uL (0.4-2.0); MONOCYTES % (AUTO) 4.6 (0-10); NEUTROPHILS # (AUTO) 16.2 K/ul (2.0-6.9); NEUTROPHILS % (AUTO) 84.2; PLATELET COUNT 582 10^3/uL (140-440); RED BLOOD COUNT 3.85 10^6/ul (4.20-5.40); WHITE BLOOD COUNT 19.27 K/ul (4.6-10.2)
[2017-06-02] MEDS: DUONEB NEB SCH ×4 (05:14→20:37)
[2017-06-02 05:32] LABS: ALBUMIN 2.9 g/dL (3.4-5.0); ALBUMIN/GLOBULIN RATIO 0.85; ANION GAP 12.2; BILIRUBIN,TOTAL 0.29 mg/dL (0.00-1.20); BUN/CREATININE RATIO 22.22; CALCIUM 9.6 mg/dL (8.2-10.2); CREATININE 0.72 mg/dL (0.60-1.30); POTASSIUM 4.2 mmol/L (3.5-5.10); TOTAL PROTEIN 6.3 g/dL (6.4-8.2)
[2017-06-02] MEDS: VANCOMYCIN 1 GM in SODIUM CHLORIDE 250 ML IV SCH ×2 (06:30→17:35)
[2017-06-02] MEDS: ROCEPHIN 1 GM in SODIUM CHLORIDE 50 ML IV SCH (08:51)
[2017-06-02] MEDS: TUSSIONEX PO SCH ×2 (08:51→20:35)
[2017-06-02] MEDS: HYDROCHLOROTHIAZIDE PO SCH (08:52)
[2017-06-02] MEDS: PREDNISONE PO SCH ×2 (08:52→08:59)
[2017-06-02] MEDS: LOPRESSOR PO SCH ×2 (08:52→17:35)
[2017-06-02] MEDS: K-DUR PO SCH ×2 (08:52→08:59)
[2017-06-02] MEDS: NICODERM 21 MG TD SCH (08:55)
--- NOTE | 2017-06-02 09:19 | PCM.PROG ---
Attending Provider: ATTENDING PROVIDER: [facility] DATE OF SERVICE: 06/02/17 SUBJECTIVE: This 56 year old WHITE/ F was hospitalized 05/26/17. The patient is hospitalized with pneumonia and respiratory failure. Condition has improved. No fever, no chills. She has a mild cough. Appetite has improved. She looks better, is oriented times three. REVIEW OF SYSTEMS: CONSTITUTIONAL: No night sweats. No fatigue, malaise, lethargy. No fever or chills. HEENT: Eyes: No visual changes. No eye pain. No eye discharge. ENT: No runny nose. No epistaxis. No sinus pain. No odynophagia. No congestion. RESPIRATORY: Mild cough, no congestion. No hemoptysis. No shortness of breath. CARDIOVASCULAR: No angina symptoms. No CHF symptoms. No atypical chest pain for CAD. No palpitations. No orthopnea.. GASTROINTESTINAL: Diarrhea. Improved appetite. No abdominal pain. No nausea or vomiting. No hematemesis. No hematochezia. GENITOURINARY: No urgency. No frequency. No dysuria. No hematuria. No obstructive symptoms. No discharge. No pain. No significant abnormal bleeding. MUSCULOSKELETAL: No musculoskeletal pain; no joint swelling. NEUROLOGICAL: Awake, alert, oriented to time, place and person. No headache. No neck pain. No syncope. No seizures. No dizziness. PSYCHIATRIC: Not anxious. No depression. No suicidal thoughts. No homicidal thoughts. SKIN: No rash. No lesions. No wounds. ENDOCRINE: No unexplained weight loss. No weight gain. HEMATOLOGIC/LYMPHATIC: No anemia. No purpura. No petechiae. No prolonged or excessive bleeding. No palpable lymph nodes. PHYSICAL EXAMINATION: GENERAL: The patient is awake, alert and oriented, lying in bed in no distress. VITAL SIGNS: Temperature 98.1 F, Pulse 63, Respiratory Rate 16, BP 110/75, Pulse Ox 92% HEENT: Head normocephalic, atraumatic. Eyes: Extraocular muscles are intact. Pupils are equal, round and reactive to light and accommodation. Ears: No lesions. Nose appeared normal. Throat: No exudate or erythema. NECK: Supple. No JVD, no carotid bruit. No lymphadenopathy or thyromegaly. LUNGS: Decreased breath sounds. Clear to auscultation. Percussion note normal. Chest symmetrical. HEART: S1, S2, no S3. No murmurs. No cyanosis or clubbing. No ascites. Pulses: Dorsalis pedis and posterior tibial pulses +1 to +2 both sides. ABDOMEN: Soft. Non-tender. Bowel sounds active. No CVA tenderness. No mass felt. EXTREMITIES: No edema. Full range of motion of all extremities, equal. NEUROLOGIC: No focal deficit. Cranial nerves II through XII are grossly intact. No headache, no double vision or headache. SKIN: Not dry. Intact. Turgor-normal. LYMPHATIC: No palpable lymph nodes/no lymphedema. MUSCULOSKELETAL: Normal joints with no swelling. Muscle tone is normal. LAB REVIEW: 06/02/17 05:04 06/02/17 05:04 06/02/17 05:04: Sodium 137, Potassium 4.2, Chloride 99, Carbon Dioxide 30, Anion Gap 12.2, BUN 16, Creatinine 0.72, Estimated GFR (MDRD) 84.00, BUN/ Creatinine Ratio 22.22, Glucose 136 H, Calcium 9.6, Total Bilirubin 0.29, AST 34 , ALT 102 H, Alkaline Phosphatase 67, Total Protein 6.3 L, Albumin 2.9 L, Globulin 3.4, Albumin/Globulin Ratio 0.85 06/02/17 05:04: WBC 19.27 H, RBC 3.85 L, Hgb 12.5, Hct 38.2, MCV 99.2 H, MCH 32.5 H, MCHC 32.7, RDW Coeff of Sheryl 14.5, Plt Count 582 H, Immature Gran % (Auto ) 2.1, Neut % (Auto) 84.2, Lymph % (Auto) 8.5 L, [place] % (Auto) 4.6, Eos % (Auto ) 0.4, Baso % (Auto) 0.2, Immature Gran # (Auto) 0.4, Neut # 16.2 H, Lymph # 1.6 , [place] # 0.9, Eos # 0.1, Baso # 0.0 ASSESSMENT: 1. Pneumonia seems to have resolved clinically but CT scan shows consolidation but is likely atelectasis due to steroids 2. WBC's are high because of steroids PLAN: 1. Prednisone 10 mg b.i.d. 2. Decrease potassium to 20 mg daily. 3. Decrease Hydrochlorothiazide to 12.5 mg 4. Chest x-ray today 5. D/C telemetry 6. Continue antibiotics, steroids and nebs treatment Plan and coordination of the patient's care discussed in the presence of Production Sanitizer and nurse. CONDITION: Stable SCRIBED BY: Milan WARREN scribed while in presence of service [facility] on 06/02/17 ([id number])
--- NOTE | 2017-06-02 13:40 | DI ---
Exam: Two x-rays of the chest. Comparison: 05/31/2017. Reason for exam: Cough and congestion. FINDINGS: No pneumothorax. There is a similar appearing air space opacity in the left lung base. T he cardiac silhouette is not enlarged. The imaged osseous structures appear grossly unremarkable wit hout acute fracture. Impression: Similar appearing left basilar airspace opacity, likely pneumonia.
[2017-06-03] MEDS: VANCOMYCIN 1 GM in SODIUM CHLORIDE 250 ML IV SCH (05:00)
[2017-06-03] MEDS: DUONEB NEB SCH ×2 (05:21→10:09)
[2017-06-03 05:52] VITALS: BP 121/79; TEMP 98
[2017-06-03 06:10] LABS: BASOPHILS % (AUTO) 0.2 % (0.0-3.0); EOSINOPHILS # (AUTO) 0.2 K/ul (0.0-0.7); EOSINOPHILS % (AUTO) 1.8 % (0.0-7.0); HEMATOCRIT 37.7 % (37.0-47.0); HEMOGLOBIN 12.6 g/dl (12.0-16.0); LYMPHOCYTES # (AUTO) 2.9 K/uL (0.60-3.4); LYMPHOCYTES % (AUTO) 22.2 (10.0-50.0); MEAN CORPUSCULAR HGB CONC 33.4 (31.8-35.4); MEAN CORPUSCULAR VOLUME 98.7 fl (81.0-99.0); MONOCYTES % (AUTO) 7.3 (0-10); NEUTROPHILS # (AUTO) 8.6 K/ul (2.0-6.9); NEUTROPHILS % (AUTO) 65.5; PLATELET COUNT 480 10^3/uL (140-440); RED BLOOD COUNT 3.82 10^6/ul (4.20-5.40)
[2017-06-03 06:42] LABS: ALBUMIN 2.8 g/dL (3.4-5.0); ALBUMIN/GLOBULIN RATIO 0.93; ANION GAP 12.4; BILIRUBIN,TOTAL 0.26 mg/dL (0.00-1.20); BUN/CREATININE RATIO 23.28; CALCIUM 9.3 mg/dL (8.2-10.2); CREATININE 0.73 mg/dL (0.60-1.30); POTASSIUM 4.4 mmol/L (3.5-5.10); TOTAL PROTEIN 5.8 g/dL (6.4-8.2)
[2017-06-03] MEDS: ULTRAM PO PRN (08:01)
[2017-06-03] MEDS: K-DUR PO SCH (09:41)
[2017-06-03] MEDS: LOPRESSOR PO SCH (09:41)
[2017-06-03] MEDS: PREDNISONE PO SCH (09:42)
[2017-06-03] MEDS: TUSSIONEX PO SCH (09:42)
[2017-06-03] MEDS: ROCEPHIN 1 GM in SODIUM CHLORIDE 50 ML IV SCH (09:42)
[2017-06-03] MEDS: HYDROCHLOROTHIAZIDE PO SCH (09:42)
[2017-06-03] MEDS: NICODERM 21 MG TD SCH (09:43)
--- NOTE | 2017-06-03 10:12 | CM.DICTOOL ---
ADMISSION: 05/26/17 16:53 DISCHARGE: June 03, 2017 DATE OF SERVICE: 06/03/17 FINAL DIAGNOSIS Pneumonia, Multifocal Left Lung, RLL Pleurisy without effusion Hypertension Hypokalemia, resolved COPD Anxiety Chronic Smoking Hepatitis C Left Adrenal Adenoma, Benign per CT (2015) History of substance abuse History of Alcohol abuse Recent Drug Overdose with intubation/ventilator (05/21) Abscess Left Lung per patient history Cholecystectomy Hysterectomy Appendectomy LAST VITALS Temp Pulse Resp BP Pulse Ox 98.0 F 53 L 20 121/79 98 06/03/17 05:50 06/03/17 05:50 06/03/17 05:50 06/03/17 05:50 06/03/17 05:50 ACTIVE HOME MEDICATIONS Hydrochlorothiazide (Hydrochlorothiazide) 12.5 mg PO DAILY [facility] Last Admin: 06/02/17 08:52 Dose: 12.5 mg (dose change) Metoprolol Tartrate (Lopressor) 50 mg PO BIDWM [facility] Last Admin: 06/02/17 17:35 Dose: 50 mg Estradiol 2 mg Daily Last Admin: ALLERGIES cyclobenzaprine HCl [From Flexeril] Adverse Reaction (Verified 05/26/17 09:08) ketorolac tromethamine [From Toradol] Adverse Reaction (Verified 05/26/17 09:08) levofloxacin [From Levaquin] Adverse Reaction (Verified 05/26/17 09:08) NEW PRESCRIPTIONS: Ultram 50 mg BID prn pain Keflex 500 mg TID for 6 days Prednisone 10 mg Daily for 5 days ProAir HFA 1-2 puffs every 4 hours prn wheezing K-dur 10 meq daily for 7 days Hydrochlorothiazide 12.5 mg take daily Lopressor 50 mg BID for hypertension SMOKING: Advised to stop smoking DISEASE SPECIFIC EDUCATION: Use of steroids, short term Smoking cessation Prescriptions Follow-up Pneumonia LAB REVIEW: 06/03/17 05:55 06/03/17 05:55 06/03/17 05:55: Vancomycin Trough 13.64 06/03/17 05:55: Sodium 137, Potassium 4.4, Chloride 100, Carbon Dioxide 29, Anion Gap 12.4, BUN 17, Creatinine 0.73, Estimated GFR (MDRD) 83.00, BUN/ Creatinine Ratio 23.28, Glucose 81, Calcium 9.3, Total Bilirubin 0.26, AST 23, ALT 75, Alkaline Phosphatase 50, Total Protein 5.8 L, Albumin 2.8 L, Globulin 3.0, Albumin/Globulin Ratio 0.93 06/03/17 05:55: WBC 13.20 H D, RBC 3.82 L, Hgb 12.6, Hct 37.7, MCV 98.7, MCH 33.0 H, MCHC 33.4, RDW Coeff of Sheryl 14.4, Plt Count 480 H, Immature Gran % (Auto ) 3.0, Neut % (Auto) 65.5, Lymph % (Auto) 22.2, [place] % (Auto) 7.3, Eos % (Auto) 1.8, Baso % (Auto) 0.2, Immature Gran # (Auto) 0.4, Neut # 8.6 H, Lymph # 2.9, [place] # 1.0, Eos # 0.2, Baso # 0.0 PLAN: Discharge home Activity: Resume as tolerated. Avoid crowds. Rest when tired. Diet: Regular diet. Drink adequate liquids (water, juice) An appointment is scheduled with [facility] for hospital follow-up on June 08 at 10:30. You will need to get all refills for your home medications from the clinic or a primary care provider of your choice. Miss Marrero is alert and oriented x 3. She denies anxiety today and is less tearful. She is ambulatory without use of an assistive device and has continued to smoke despite repeated advice to stop smoking. She is independent with activities of daily living. Skin is intact and free of rashes, irritation or open wounds. Her appetite is good, consuming 75-100% of all meals. Dereck Kuo MD Angelina Singh APRN
--- NOTE | 2017-06-03 10:48 | PCM.PROG ---
Attending Provider: ATTENDING PROVIDER: [facility] This patient is seen with Angelina Singh, Nurse Practitioner. DATE OF SERVICE: 06/03/17 SUBJECTIVE: This 56 year old WHITE/ F was hospitalized 05/26/17. The patient is alert, sitting up in bed. She has been outside multiple times to smoke. REVIEW OF SYSTEMS: CONSTITUTIONAL: No night sweats. No fatigue, malaise, lethargy. No fever or chills. HEENT: Eyes: No visual changes. No eye pain. No eye discharge. ENT: No runny nose. No epistaxis. No sinus pain. No odynophagia. No congestion. RESPIRATORY: Cough and congestion. No hemoptysis. No shortness of breath. CARDIOVASCULAR: No angina symptoms. No CHF symptoms. No atypical chest pain for CAD. No palpitations. No orthopnea.. GASTROINTESTINAL: No abdominal pain. No nausea or vomiting. No diarrhea or constipation. No hematemesis. No hematochezia. GENITOURINARY: No urgency. No frequency. No dysuria. No hematuria. No obstructive symptoms. No discharge. No pain. No significant abnormal bleeding. MUSCULOSKELETAL: No musculoskeletal pain; no joint swelling. NEUROLOGICAL: Awake, alert, oriented to time, place and person. No headache. No neck pain. No syncope. No seizures. No dizziness. PSYCHIATRIC: Not anxious. No depression. No suicidal thoughts. No homicidal thoughts. SKIN: No rash. No lesions. No wounds. ENDOCRINE: No unexplained weight loss. No weight gain. HEMATOLOGIC/LYMPHATIC: No anemia. No purpura. No petechiae. No prolonged or excessive bleeding. No palpable lymph nodes. PHYSICAL EXAMINATION: GENERAL: The patient is awake, alert and oriented, sitting in bed in no distress. VITAL SIGNS: Temperature 98.0 F, Pulse 53, Respiratory Rate 20, BP 121/79, Pulse Ox 98% HEENT: Head normocephalic, atraumatic. Eyes: Extraocular muscles are intact. Pupils are equal, round and reactive to light and accommodation. Ears: No lesions. Nose appeared normal. Throat: No exudate or erythema. NECK: Supple. No JVD, no carotid bruit. No lymphadenopathy or thyromegaly. LUNGS: Diminished breath sounds bilaterally equal and clear to auscultation. Percussion note normal. Chest symmetrical. HEART: S1, S2, no S3. No murmurs. No cyanosis or clubbing. No ascites. Pulses: Dorsalis pedis and posterior tibial pulses +1 to +2 both sides. ABDOMEN: Soft. Non-tender. Bowel sounds active. No CVA tenderness. No mass felt. EXTREMITIES: No edema. Full range of motion of all extremities, equal. NEUROLOGIC: No focal deficit. Cranial nerves II through XII are grossly intact. No headache, no double vision or headache. SKIN: Not dry. Intact. Turgor-normal. LYMPHATIC: No palpable lymph nodes/no lymphedema. MUSCULOSKELETAL: Normal joints with no swelling. Muscle tone is normal. LAB REVIEW: 06/03/17 05:55 06/03/17 05:55 06/03/17 05:55: Vancomycin Trough 13.64 06/03/17 05:55: Sodium 137, Potassium 4.4, Chloride 100, Carbon Dioxide 29, Anion Gap 12.4, BUN 17, Creatinine 0.73, Estimated GFR (MDRD) 83.00, BUN/ Creatinine Ratio 23.28, Glucose 81, Calcium 9.3, Total Bilirubin 0.26, AST 23, ALT 75, Alkaline Phosphatase 50, Total Protein 5.8 L, Albumin 2.8 L, Globulin 3.0, Albumin/Globulin Ratio 0.93 06/03/17 05:55: WBC 13.20 H D, RBC 3.82 L, Hgb 12.6, Hct 37.7, MCV 98.7, MCH 33.0 H, MCHC 33.4, RDW Coeff of Sheryl 14.4, Plt Count 480 H, Immature Gran % (Auto ) 3.0, Neut % (Auto) 65.5, Lymph % (Auto) 22.2, [place] % (Auto) 7.3, Eos % (Auto) 1.8, Baso % (Auto) 0.2, Immature Gran # (Auto) 0.4, Neut # 8.6 H, Lymph # 2.9, [place] # 1.0, Eos # 0.2, Baso # 0.0 ASSESSMENT: 1. Pneumonia, resolving. 2. Hypokalemia resolved. 3. Elevated liver enzymes due to Hep C, no acute process per CT. 4. Smoker. 5. COPD. PLAN: 1. D/C home. 2. Keflex 500 t.i.d. times 6 days. 3. Prednisone 10 mg daily times five. 4. Ultram 50 mg b.i.d. p.r.n. #10. 5. HCTZ 12.5 mg. 6. ProAir inhaler one to two puffs q.4 p.r.n. 7. Lopressor 50 mg b.i.d. 8. Potassium 10 mg daily for one week. 9. The patient will followup in the clinic next week Wednesday or Wednesday. Plan and coordination of the patient's care discussed in the presence of Retail Warehouse Supervisor and nurse. CONDITION: Stable SCRIBED BY: FLORIDALMA LINDER Hand Patcher scribed while in presence of service performed by Dr. Schulz/Angelina Singh APRN on 06/03/17 ([id number])
--- NOTE | 2017-06-03 14:31 | PN ---
DATE OF SERVICE: 06/01/17 SUBJECTIVE: 56 year old white female hospitalized with pneumonia. The patient's x-ray showed worsening of the left side, complete resolution on the right. We will add patient on Vancomycin. Liver profile is mildly abnormal. She is Hep positive. The CT scan was negative for any liver cirrhosis. PFT showed severe chronic lung disease. The patient is strongly advised to quit smoking. PHYSICAL EXAMINATION: GENERAL: The patient is , lying/sitting in bed in no distress. VITAL SIGNS: Blood pressure 122/79, pulse ox 95% on room air. HEENT: Head normocephalic, atraumatic. Eyes: Extraocular muscles are intact. Pupils are equal, round and reactive to light and accommodation. Ears: No lesions. Nose appeared normal. Throat: No exudate or erythema. NECK: Supple. No JVD, no carotid bruit. No lymphadenopathy or thyromegaly. LUNGS: Decreased breath sounds. Clear to auscultation. Percussion note normal. Chest symmetrical. HEART: S1, S2, no S3. No murmurs. No cyanosis or clubbing. No ascites. Pulses: Dorsalis pedis and posterior tibial pulses +1 to +2 both sides. ABDOMEN: Soft. Nontender. Bowel sounds active. No CVA tenderness. No mass felt. EXTREMITIES: No edema. Full range of motion of all extremities, equal. NEUROLOGIC: No focal deficit. Cranial nerves II through XII are grossly intact. No headache, no double vision or headache. SKIN: Not dry. Intact. Turgor - A lot better. LYMPHATIC: No palpable lymph nodes/no lymphedema. MUSCULOSKELETAL: Normal joints with no swelling. Muscle tone is normal. The patient was seen and examined with Nurse Practitioner and Clinical Program Consultant. PLAN: 1. Will continue antibiotics and steroids 2. Counseling for smoking and drug abuse done 3. Advised Pulmonary rehab, declined. TIME SPENT: More than 30 minutes. Plan and coordination of the patient's care discussed in the presence of nurse. SANDHYA
--- NOTE | 2017-06-03 14:45 | PN ---
DATE OF SERVICE: 05/31/17 SUBJECTIVE: The patient was seen and examined with Nurse Practitioner and Apparel Machinery Instructor. The patient's condition it improving and her blood pressure is acceptable. PHYSICAL EXAMINATION: HEENT: Head normocephalic, atraumatic. Eyes: Extraocular muscles are intact. Pupils are equal, round and reactive to light and accommodation. Ears: No lesions. Nose appeared normal. Throat: No exudate or erythema. NECK: Supple. No JVD, no carotid bruit. No lymphadenopathy or thyromegaly. LUNGS: Clear to auscultation. Percussion note normal. Chest symmetrical. HEART: S1, S2, no S3. No murmurs. No cyanosis or clubbing. No ascites. Pulses: Dorsalis pedis and posterior tibial pulses +1 to +2 both sides. ABDOMEN: Soft. Nontender. Bowel sounds active. No CVA tenderness. No mass felt. EXTREMITIES: No edema. Full range of motion of all extremities, equal. NEUROLOGIC: No focal deficit. Cranial nerves II through XII are grossly intact. No headache, no double vision or headache. SKIN: Not dry. Intact. Turgor - normal. LYMPHATIC: No palpable lymph nodes/no lymphedema. MUSCULOSKELETAL: Normal joints with no swelling. Muscle tone is normal. LABS: Potassium 3.2 PLAN: 1. Hepatitis C is positive. Discussed with the patient about it. Refuses any referral to any cutter first. Treatment for Hepatitic C discussed. Cure is a possibility discussed with her. 2. Counseling for smoking done. TIME SPENT: More than 30 minutes. Plan and coordination of the patient's care discussed in the presence of nurse. SANDHYA
--- NOTE | 2017-06-04 14:43 | PN ---
DATE OF SERVICE: 06/03/17 SUBJECTIVE: 56-year-old white female hospitalized with pneumonia. The patient's condition has improved remarkably. Both lungs are clear. Hydration status improved. She looks a lot better. No DTs or no loss of any kind. She is up and about. Appetite is practically normal. Lab tests are acceptable. The patient will be discharged on ProAir, Keflex, Prednisone and Ultram. She is advised to quit smoking. Liver profile is acceptable with ALT of 75. The patient is going to be discharged to be followed by [facility]. CONDITION AT TIME OF DISCHARGE: Stable. Prognosis is guarded. The patient has a long history of drug abuse and noncompliance. Strongly advised to quit smoking. PFT discussed. Counseling for smoking done. The patient was seen and examined with nurse practitioner and showcase trimmer. TIME SPENT: More than 30 minutes. Plan and coordination of the patient's care discussed in the presence of nurse. SANDHYA
--- NOTE | 2017-06-04 14:46 | PN ---
CODING FOR BILLING 05/26/17 LEVEL 5 05/27/17 INTERMEDIATE 05/28/17 INTERMEDIATE 05/29/17 INTERMEDIATE 05/30/17 INTERMEDIATE 05/31/17 INTERMEDIATE 06/01/17 INTERMEDIATE 06/02/17 BRIEF 06/03/17 DISCHARGE MTDD
--- NOTE | 2017-06-09 06:49 | DS ---
DATE OF SERVICE: 06/03/17 FINAL DIAGNOSIS: 1. PNEUMONIA, MULTIFOCAL LEFT LUNG, RLL 2. PLEURISY WITHOUT EFFUSION 3. HYPERTENSION 4. HYPOKALEMIA, RESOLVED 5. COPD 6. ANXIETY 7. CHRONIC SMOKING 8. HEPATITIS C 9. LEFT ADRENAL ADENOMA, BENIGN PER CT (2016) 10. HISTORY OF SUBSTANCE ABUSE 11. HISTORY OF ALCOHOL ABUSE 12. RECENT DRUG OVERDOSE WITH INTUBATION/VENTILATOR (05/21) 13. ABSCESS LEFT LUNG PER PATIENT HISTORY 14. CHOLECYSTECTOMY 15. HYSTERECTOMY 16. APPENDECTOMY DISCHARGE INSTRUCTIONS: Followup appointment is scheduled at the [facility] for hospital followup on 06/08 at 10:30. You will need to get all refills for your home medications from the clinic or primary care provider of your choice. MEDICATIONS AT DISCHARGE: Hydrochlorothiazide 12.5 mg p.o. daily KENDRA Metoprolol (Lopressor) 50 mg p.o. b.i.d. with meal KENDRA Estradiol 2 mg daily NEW PRESCRIPTIONS: Ultram 50 mg b.i.d. p.r.n. pain Keflex 500 mg t.i.d. for 6 days Prednisone 10 mg daily for 5 days ProAir HFA 1-2 puffs every four hours p.r.n. wheezing K-Dur 10 mEq daily for 7 days Hydrochlorothiazide 12.5 mg take daily Lopressor 50 mg b.i.d. for hypertension DIET INSTRUCTIONS: Regular diet, drink adequate liquids (water, juice) ACTIVITY: Resuem as tolerated. Avoid crowds. Rest when tired. SMOKING: Advised to stop smoking DISEASE SPECIFIC EDUCATION: Use of steroids, short term Smoking cessation Prescriptions Follow-up Pneumonia HOSPITAL COURSE: This is a 56-year-old female who was admitted through the emergency room as a hospitalist patient. She had previously been hospitalized at [facility], two days prior on 05/24/17 with a drug overdose, was positive for opiates and Benzodiazepines. She left [facility] and then presented to our emergency room on 05/26 complaining of shortness of breath and pain with coughing. It was found on a CT scan that she had bilateral multifocal pneumonia. She was subsequently placed on IV Rocephin along with IV Solu-Medrol and started on nebs treatments, Duonebs q.6hr. She had previously been prescribed Hydrochlorothiazide, Synthroid for hypothyroidism and Lopressor for hypertension; however, she has not been taking these medications for some time and does not see a primary care provider regularly. Repeat chest x-ray showed on Wednesday that she had some residual left lobe pneumonia so we then added Vancomycin along with the Rocephin. She was experiencing a lot of coughing and pleuritic type pain for which we gave her Tussionex b.i.d. along with Ultram. Due to her history of substance abuse, she will only be discharged with Ultram 50 mg b.i.d. p.r.n. #10. We will discharge her on Keflex 500 mg t.i.d. to be taken for the next five days along with Prednisone 10 mg daily for the next five days and give her a ProAir inhaler to use 1 to 2 puffs q.4 to 6 hours. This patient also has a history of being Hep C positive. We repeated a hepatitis C panel for which she was positive. On admission her liver enzymes were normal. During the course of her hospital stay her ALT reached 100; however , it is starting to decline steadily and today, on day of discharge, AST is 23, ALT 75. The patient has been doing well over the course of the past couple days. She has been up and about and going out regularly to smoke. Education was provided to her regarding the need for smoking cessation along with worsening of her condition of pneumonia and smoking cigarettes. Her vital signs today on day of discharge are stable with temperature of 98, heart rate 53, respirations 20, BP 121/79 and pulse ox 98. During the course of her stay she also had some diarrhea upon admission and she did experience some hypokalemia so for 2 to 3 days at one point her potassium dropped to 3.0. This is quickly resolved with supplemental potassium and the diarrhea has since resolved. Today, on day of discharge, potassium 4.4, sodium 137, BUN 17, creatinine 0.73. White count 13.2, hemoglobin 12.6, hematocrit 37.7. Medications, lifestyle as well as followup compliance were discussed in detail with this patient. Again, she has a long history of noncompliance and drug abuse. She is instructed to followup with the [facility] early next week. We will discharge her on Keflex, Proair, Prednisone and again, Ultram 50 b.i.d. for pleuritic pain #10. TIME SPENT: More than 60 minutes. MTDD
== END 2017-06-03 11:34 | disposition home or self-care (01) | DRG 194 ==
LOC: ED 09:00 → MEDSURG A 16:53
PROVIDERS: ADMIT Internal Medicine; ATTEND Internal Medicine
DX: J18.9 Pneumonia, unspecified organism (principal); J91.8 Pleural effusion in other conditions classified elsewhere; R09.1 Pleurisy; R06.02 Shortness of breath; R11.2 Nausea with vomiting, unspecified; R19.7 Diarrhea, unspecified; E87.6 Hypokalemia; B19.20 Unspecified viral hepatitis C without hepatic coma; I10 Essential (primary) hypertension; J44.9 Chronic obstructive pulmonary disease, unspecified; D64.9 Anemia, unspecified; E03.9 Hypothyroidism, unspecified; R73.9 Hyperglycemia, unspecified; F19.10 Other psychoactive substance abuse, uncomplicated; F41.9 Anxiety disorder, unspecified; D35.02 Benign neoplasm of left adrenal gland; F17.200 Nicotine dependence, unspecified, uncomplicated; Z72.89 Other problems related to lifestyle; Z91.14 Patient's other noncompliance with medication regimen; Z79.899 Other long term (current) drug therapy
CPT/HCPCS: 36415; 80053; 80074; 80202; 80306; 81001; 82550; 82607; 82728; 82746; 82803; 83036; 83540; 83550; 83605; 84436; 84443; 84466; 84484; 85007; 85025; 85045; 85379; 87040; 87070; 87081; 87205; 87493; 93005; 93010; 94640; 96361; 96365; 96375; 96376; 99284

== ENCOUNTER 2017-07-01 11:50 | Emergency (ER) ==
[2017-07-01 12:01] VITALS: BP 119/77; TEMP 97.9; BMI 19.8
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
[2017-07-01] MEDS ORDERED: ULTRAM PO STA (12:22)
== END 2017-07-01 12:30 | disposition left against medical advice (07) ==
LOC: ED 11:50
DX: S30.1XXA Contusion of abdominal wall, initial encounter (principal); R10.9 Unspecified abdominal pain; S60.419A Abrasion of unspecified finger, initial encounter; F17.210 Nicotine dependence, cigarettes, uncomplicated; W19.XXXA Unspecified fall, initial encounter
CPT/HCPCS: 99284

== ENCOUNTER 2017-07-16 11:59 | Outpatient (CLI) ==
[2017-07-16 12:20] VITALS: BMI 19.3
== END 2017-07-16 12:00 | disposition critical access hospital (66) ==
LOC: AMBL 11:59
PROVIDERS: ATTEND Internal Medicine
DX: R20.0 Anesthesia of skin (principal); R41.82 Altered mental status, unspecified; R47.81 Slurred speech

== ENCOUNTER 2017-07-16 12:13 | Emergency (ER) ==
[2017-07-16 12:20] VITALS: BP 102/76; TEMP 97.4; BMI 19.3
[2017-07-16 13:12] LABS: BASOPHILS # (AUTO) 0.1 K/uL (0-0.2); BASOPHILS % (AUTO) 0.7 % (0.0-3.0); EOSINOPHILS # (AUTO) 0.1 K/ul (0.0-0.7); EOSINOPHILS % (AUTO) 0.6 % (0.0-7.0); HEMATOCRIT 37.3 % (37.0-47.0); HEMOGLOBIN 12.9 g/dl (12.0-16.0); IMMATURE GRANULOCYTE % (AUTO) 0.4 % (0.0-5.0); LYMPHOCYTES # (AUTO) 1.7 K/uL (0.60-3.4); LYMPHOCYTES % (AUTO) 16.4 (10.0-50.0); MEAN CORPUSCULAR HEMOGLOBIN 33.6 pg (27.0-31.0); MEAN CORPUSCULAR HGB CONC 34.6 (31.8-35.4); MEAN CORPUSCULAR VOLUME 97.1 fl (81.0-99.0); MONOCYTES # (AUTO) 0.9 K/uL (0.4-2.0); MONOCYTES % (AUTO) 8.9 (0-10); NEUTROPHILS # (AUTO) 7.7 K/ul (2.0-6.9); PLATELET COUNT 285 10^3/uL (140-440); RED BLOOD COUNT 3.84 10^6/ul (4.20-5.40); WHITE BLOOD COUNT 10.58 K/ul (4.6-10.2)
--- NOTE | 2017-07-16 13:26 | CT ---
EXAM: CT BRAIN HISTORY: TIA, headache TECHNIQUE: CT brain without intravenous contrast. 5-mm axial sections with Reformations. COMPARISON: 05/21/2017 FINDINGS: Brain is unremarkable without distinct evidence of hemorrhage or large vessel distribution recent is chemic infarction. There is no suggestion of acute hydrocephalus or subdural fluid collection. No m ass or mass effect. Cranium is within normal limits. Mastoid air cells are aerated. The visualized paranasal sinuses a re clear. IMPRESSION: No acute intracranial process. MRI is more sensitive regarding acute ischemia and infar ction if indicated clinically.
--- NOTE | 2017-07-16 13:26 | DI ---
EXAM: Single frontal view of the chest HISTORY: Cough. COMPARISON: Chest x-ray 06/02/2017 FINDINGS: Cardiomediastinal silhouette is normal. There is no pneumothorax or pleural effusion. The re is no consolidation, nodule or mass. The osseous structures are unremarkable. IMPRESSION: No acute cardiopulmonary process.
[2017-07-16 13:38] LABS: BILIRUBIN,URINE Negative (NEGATIVE); KETONES,URINE Trace (NEGATIVE); LEUKOCYTE ESTERASE ,URINE Negative (NEGATIVE); NITRITE,URINE Negative (NEGATIVE); PROTEIN,URINE Negative (NEGATIVE); URINE, BLOOD Negative (NEGATIVE)
[2017-07-16 13:40] LABS: ADD URINE MICROSCOPIC NO
[2017-07-16 13:43] LABS: ALBUMIN 3.5 g/dL (3.4-5.0); ALBUMIN/GLOBULIN RATIO 1.06; ANION GAP 12.6; BILIRUBIN,TOTAL 0.13 mg/dL (0.00-1.20); BUN/CREATININE RATIO 19.27; CALCIUM 9.6 mg/dL (8.2-10.2); CREATININE 0.83 mg/dL (0.60-1.30); POTASSIUM 3.6 mmol/L (3.5-5.10); TOTAL PROTEIN 6.8 g/dL (6.4-8.2)
[2017-07-16 13:48] LABS: COCAIN SCREEN,URINE POSITIVE (NEGATIVE)
[2017-07-16] MEDS ORDERED: ATIVAN IVP STA (13:57)
--- NOTE | 2017-07-16 17:07 | ED.PDOC ---
General ED Provider: Dr. MENDOZA HERNANDEZ Chief Complaint: Weakness Stated Complaint: agitation Time Seen by Physician: 12:30 Mode of Arrival: Ambulance Information Source: Patient, EMT Exam Limitations: No limitations Nursing and Triage Documentation Reviewed and Agree: Yes Psychological Complaint Exam - Substance Abuse/Use Complaint/Exam Patient Complains Of Substance Abuse Of: Cocaine, Benzodiazapines Patient Complains Of Substance Withdrawal Of: Cocaine Onset/Duration: today use time is uncertain pt said a few days ago Abuse Began: this is a chronic isue Timing: Daily Initial Severity: Mild Current Severity: Mild Character: Present: Anxious, Frustrated Aggravating: Reports: None Alleviating: Reports: None Associated Signs And Symptoms: Reports: Appetite change, Social withdrawal, Agitated. Denies: Confused, Hallucinating, Paranoid behavior, Sleep disturbance , Palpitations, Short of air, Chest pain, Delirium Tremens, Diaphoretic Related History: Denies: Suicidal thoughts, Suicidal plan, Suicidal gestures, Homicidal thoughts, Homicidal plan, Homicidal gestures Possible Multi Drug Ingestion: No Completed Suicide Risk Factors: None Patient In Custody Of Police: No Social Withdrawal Present: No Social Isolation Present: No Prior Suicide Attempt: No Injury From Prior Suicide Attempt: No Patient Uncooperative For Exam: No Mood: Present: Anxious Thought Process: Present: Logical Insight: Present: Good Memory: Intact Danger To Others: No Patient Medically Stable For: Psych evaluation Differential Diagnoses: Anxiety, Depression Review of Systems - Review Of Systems Constitutional: Reports: No symptoms Eyes: Reports: No symptoms Ears, Nose, Mouth, Throat: Reports: No symptoms Respiratory: Reports: No symptoms Cardiac: Reports: No symptoms GI: Reports: No symptoms : Reports: No symptoms Musculoskeletal: Reports: No symptoms Skin: Reports: No symptoms Neurological: Reports: Other (agitation) Endocrine: Reports: No symptoms Hematologic/Lymphatic: Reports: No symptoms All Other Systems: Reviewed and Negative Past Medical History - Past Medical History Previously Healthy: Yes Endocrine: Reports: None Cardiovascular: Reports: Hypertension Respiratory: Reports: COPD, Asthma, Pneumonia ([facility] old records:early pneumonia detected. What treatment given is not recorded.) Hematological: Reports: None Gastrointestinal: Reports: Other (hep c ) Genitourinary: Reports: None Neuro/Psych: Reports: Anxiety, Depression Musculoskeletal: Reports: None Cancer: Reports: None Last Menstrual Period: NA Other Pertinent Past Medical History: alcohol abuse, overdoses on alcohol & anxiety/narcotic medications - Surgical History General Surgical History: Reports: Hysterectomy, Cholecystectomy, Orthopedic ( RIGHT KNEE SURGERY. SCOPE SURGERY ON LEFT KNEE), Other (recent heart cath). Denies: CABG (cath rencent), Back Surgery (CHRONIC BACK PROBLEMS) - Family History Family History: Reports: Unknown - Social History Smoking Status: Current every day smoker, Light tobacco smoker Hx Substance Use: Yes (track segovia on arms) Alcohol Screening: Occasionally Physical Exam - Physical Exam Appearance: Well-appearing, No pain distress, Well-nourished Eyes: MARY, EOMI, Conjunctiva clear ENT: Ears normal, Nose normal, Oropharynx normal Respiratory: Airway patent, Breath sounds clear, Breath sounds equal, Respirations nonlabored Cardiovascular: RRR, Pulses normal, No rub, No murmur GI/: Soft, Nontender, No masses, Bowel sounds normal, No Organomegaly Musculoskeletal: Normal strength, ROM intact, No edema, No calf tenderness Skin: Warm, Dry, Normal color Neurological: Sensation intact, Motor intact, Reflexes intact, Cranial nerves intact, Alert, Oriented Psychiatric: Affect appropriate, Mood appropriate Critical Care Note - Critical Care Note Total Time (mins): 0 Course - Course Hematology/Chemistry: 07/16/17 12:50 07/16/17 12:50 Orders, Labs, Meds: Lab Review 07/16/17 07/16/17 07/16/17 12:50 12:50 13:12 WBC 10.58 H RBC 3.84 L Hgb 12.9 Hct 37.3 MCV 97.1 MCH 33.6 H MCHC 34.6 RDW Coeff of Sheryl 13.9 Plt Count 285 Immature Gran % (Auto) 0.4 Neut % (Auto) 73.0 Lymph % (Auto) 16.4 Brooks % (Auto) 8.9 Eos % (Auto) 0.6 Baso % (Auto) 0.7 Immature Gran # (Auto) 0.0 Neut # 7.7 H Lymph # 1.7 Brooks # 0.9 Eos # 0.1 Baso # 0.1 Sodium 141 Potassium 3.6 Chloride 108 H Carbon Dioxide 24 Anion Gap 12.6 BUN 16 Creatinine 0.83 Estimated GFR (MDRD) 71.00 BUN/Creatinine Ratio 19.27 Glucose 103 Calcium 9.6 Total Bilirubin 0.13 AST 22 ALT 43 Alkaline Phosphatase 49 Total Protein 6.8 Albumin 3.5 Globulin 3.3 Albumin/Globulin Ratio 1.06 TSH 0.316 L Free T4 0.92 Urine Color Urine Clarity Urine pH Ur Specific Sligo Urine Protein Urine Glucose (UA) Urine Ketones Urine Blood Urine Nitrite Urine Bilirubin Urine Urobilinogen Ur Leukocyte Esterase Urine Opiates Screen Negative Ur Oxycodone Screen Negative Urine Methadone Screen Negative Ur Propoxyphene Screen Negative Ur Barbiturates Screen Negative U Tricyclic Antidepress Positive Ur Phencyclidine Scrn Negative Ur Amphetamine Screen Negative U Methamphetamines Scrn Negative U Benzodiazepines Scrn Positive Urine Cocaine Screen Positive U Cannabinoids Screen Negative 07/16/17 13:12 WBC RBC Hgb Hct MCV MCH MCHC RDW Coeff of Sheryl Plt Count Immature Gran % (Auto) Neut % (Auto) Lymph % (Auto) Brooks % (Auto) Eos % (Auto) Baso % (Auto) Immature Gran # (Auto) Neut # Lymph # Brooks # Eos # Baso # Sodium Potassium Chloride Carbon Dioxide Anion Gap BUN Creatinine Estimated GFR (MDRD) BUN/Creatinine Ratio Glucose Calcium Total Bilirubin AST ALT Alkaline Phosphatase Total Protein Albumin Globulin Albumin/Globulin Ratio TSH Free T4 Urine Color Yellow Urine Clarity Clear Urine pH 5.0 Ur Specific Sligo 1.025 Urine Protein Negative Urine Glucose (UA) Negative Urine Ketones Trace Urine Blood Negative Urine Nitrite Negative Urine Bilirubin Negative Urine Urobilinogen 0.2 Ur Leukocyte Esterase Negative Urine Opiates Screen Ur Oxycodone Screen Urine Methadone Screen Ur Propoxyphene Screen Ur Barbiturates Screen U Tricyclic Antidepress Ur Phencyclidine Scrn Ur Amphetamine Screen U Methamphetamines Scrn U Benzodiazepines Scrn Urine Cocaine Screen U Cannabinoids Screen Orders Category Date Time Status EKG-(ED ONLY) Stat CARDIO 07/16/17 12:36 Completed ED IV/MEDIPORT/POWERPORT .ONCE EMERGENCY 07/16/17 12:36 Active CBC W/ AUTO DIFF Stat LAB 07/16/17 12:50 Completed COMPREHENSIVE METABOLIC PANEL Stat LAB 07/16/17 12:50 Completed FREE T4 (FREE THYROXINE) Stat LAB 07/16/17 12:50 Completed THYROID STIMULATING HORMONE Stat LAB 07/16/17 12:50 Completed URINALYSIS C & S IF INDICATED Stat LAB 07/16/17 13:12 Completed URINE DRUG SCREEN (RAPID FOR ED) [DRUG SCREEN, URINE, LAB 07/16/17 13:12 Completed RAPID] Stat 0.9 % Sodium Chloride [Saline Flush] MEDS 07/16/17 12:36 Active 1 syr IVF PRN PRN Lorazepam Inj [Ativan] MEDS 07/16/17 13:57 Discontinued 1 mg IVP ONCE STA CHEST, 1V AP ONLY Stat RADS 07/16/17 12:[address] HEAD W/O CONTRAST Stat RADS 07/16/17 12:37 Completed Medications Generic Name Dose Route Start Last Admin Trade Name Freq PRN Reason Stop Dose Admin Sodium Chloride 1 syr 07/16/17 12:36 07/16/17 14:05 Saline Flush IVF 1 syr PRN PRN Administration To flush IV Discontinued Medications Generic Name Dose Route Start Last Admin Trade Name Freq PRN Reason Stop Dose Admin Lorazepam 1 mg 07/16/17 13:57 07/16/17 14:07 Ativan IVP 07/16/17 13:58 1 mg ONCE STA Administration Vital Signs: Temp Pulse Resp BP Pulse Ox 07/16/17 12:16 97.4 F L 92 H 22 102/76 97 Departure - Departure Time of Disposition: 17:08 Disposition: HOME SELF-CARE Discharge Problem: Cocaine abuse Instructions: Cocaine (On the skin), Cocaine Abuse (ED), Anxiety (ED), Psychotic Disorder (ED) Condition: Good Pt referred to PMD for follow-up: Yes Additional Instructions: Please call your Family Physician as soon as possible to schedule a follow-up appointment. Allergies/Adverse Reactions: Allergies cyclobenzaprine HCl [From Flexeril] Adverse Reaction (Verified 07/01/17 12:01) ketorolac tromethamine [From Toradol] Adverse Reaction (Verified 07/01/17 12:01) levofloxacin [From Levaquin] Adverse Reaction (Verified 07/01/17 12:01) Home Medications: Ambulatory Orders Albuterol Sulfate [Proair Hfa] 2 puff IH Q4H PRN #1 puff 06/03/17 Hydrochlorothiazide 12.5 mg PO DAILY #30 tablet 06/03/17 Black Cohosh 540 mg PO BID 07/01/17 Metoprolol Tartrate [Lopressor] 25 mg PO DAILY 07/16/17 Disposition Discussed With: Patient
== END 2017-07-16 17:20 | disposition home or self-care (01) ==
LOC: ED 12:13
DX: F14.10 Cocaine abuse, uncomplicated (principal); F17.210 Nicotine dependence, cigarettes, uncomplicated
CPT/HCPCS: 36415; 80053; 80306; 81001; 84439; 84443; 85025; 93005; 93010; 96374; 99284

== ENCOUNTER 2017-07-29 12:41 | Outpatient (CLI) ==
[2017-07-29 13:34] VITALS: BMI 20.7
== END 2017-07-29 12:42 | disposition other institution (70) ==
LOC: AMBL 12:41
PROVIDERS: ATTEND Emergency Medicine
DX: J18.9 Pneumonia, unspecified organism (principal); F10.129 Alcohol abuse with intoxication, unspecified

== ENCOUNTER 2017-07-29 12:58 | Inpatient (IN) ==
[2017-07-29] MEDS ORDERED: TYLENOL PO PRN (13:05)
[2017-07-29] MEDS ORDERED: ATROPINE SULFATE PFS IVP PRN (13:05)
[2017-07-29] MEDS ORDERED: VISTARIL INJ IM PRN (13:05)
[2017-07-29] MEDS ORDERED: NITROSTAT SL PRN (13:05)
[2017-07-29] MEDS ORDERED: MORPHINE 4 MG/ML VIAL IVP PRN (13:05)
[2017-07-29] MEDS ORDERED: THIAMINE 100 MG, INFUVITE ADULT 10 ML, FOLIC ACID 1 MG in DEXTROSE 5%-NS IV SOLUTION 1,... IV SCH (13:30)
[2017-07-29 13:34] VITALS: TEMP 98; BMI 20.7
[2017-07-29] MEDS ORDERED: ATIVAN IVP STA (14:08)
--- NOTE | 2017-07-29 14:18 | CT ---
EXAM: CT chest without intravenous contrast 07/29/2017. Sagittal and coronal reformatted images obt ained HISTORY: Cough COMPARISON: 07/16/2017, 05/26/2017 FINDINGS: The heart size appears within normal limits. There is multifocal linear opacity within the right lung suggestive of atelectasis. Patchy ground-glass infiltrate within the right lower lobe on the prior study has resolved. The majority of the previously seen infiltrate involving the left upper lobe/lingula and left lower l obe has resolved. There is mild residual linear and ground-glass density which may represent a small amount of residual pneumonitis. There is no pulmonary consolidation. No pleural effusion or pneumothorax. Emphysematous changes of the pulmonary apices. Limited views of the upper abdomen shows surgical changes of cholecystectomy. IMPRESSION: 1. Emphysema. 2. The majority of the previously seen bilateral pulmonary infiltrates on the prior CT have resolved . 3. Residual linear and ground-glass infiltrates likely represent atelectasis and/or pneumonitis.
[2017-07-29] MEDS ORDERED: SOLU-MEDROL 125 MG IVP SCH (15:00)
[2017-07-29] MEDS ORDERED: LIBRIUM PO SCH (15:00)
[2017-07-29] MEDS ORDERED: ROCEPHIN 1 GM in SODIUM CHLORIDE 50 ML IV SCH (15:00)
[2017-07-29] MEDS ORDERED: DUONEB NEB SCH (18:00)
[2017-07-30] MEDS ORDERED: ASPIRIN EC PO SCH (08:00)
--- NOTE | 2017-09-10 14:38 | AMA ---
HISTORY: The patient came to the [facility] with cough and congestion. She had a fever. There were crackles all over the lung moreno. At that time, the patient was a direct admission. CT of the chest showed residual linear and ground-glass infiltrates likely represent atelectasis and/or pneumonia. Labs showed normal white count. Chemistries showed a hypernatremia 147. Blood alcohol level was 193. She was started on the IV fluids, antibiotics and breathing treatments, but 4 to 5 o'clock she asked to leave as an AMA as the patient was feeling better. The nurses and I tried to convince the patient to stay here to get the whole treatment. She refused to so that. The patient's came and took the patient home against the medical advise and I tell the patient that she can come back in case she feels like she is getting bad. The patient was awake, alert at the time of discharge. Antibiotics were sent to the pharmacy. Time spent on the patient was more than 35 minutes today. SANDHYA
== END 2017-07-29 15:55 | disposition left against medical advice (07) | DRG 194 ==
LOC: MEDSURG B 12:58
PROVIDERS: ADMIT Emergency Medicine; ATTEND Emergency Medicine
DX: J18.9 Pneumonia, unspecified organism (principal); J98.11 Atelectasis; E87.0 Hyperosmolality and hypernatremia; F10.929 Alcohol use, unspecified with intoxication, unspecified; F17.210 Nicotine dependence, cigarettes, uncomplicated; Y90.6 Blood alcohol level of 120-199 mg/100 ml; Z79.899 Other long term (current) drug therapy
CPT/HCPCS: 36415; 80053; 80307; 82550; 83874; 84484; 85025; 93005; 93010

== ENCOUNTER 2017-08-03 10:57 | Emergency (ER) ==
[2017-08-03 11:07] VITALS: BP 137/95; BMI 20.1
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
[2017-08-03 11:22] VITALS: TEMP 97
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
--- NOTE | 2017-08-03 12:29 | DI ---
EXAM: RIGHT FEMUR, 2 VIEWS HISTORY: Injury, pain FINDINGS: No fracture or dislocation. Normal bone density. Hip joint is normal. Probable early kne e joint arthropathy. Soft tissues within normal limits. IMPRESSION: No fracture or dislocation.
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
== END 2017-08-03 12:49 | disposition home or self-care (01) ==
LOC: ED 10:57
DX: S19.9XXA Unspecified injury of neck, initial encounter (principal); S69.91XA Unspecified injury of right wrist, hand and finger(s), initial encounter; S70.11XA Contusion of right thigh, initial encounter; S29.9XXA Unspecified injury of thorax, initial encounter; M54.9 Dorsalgia, unspecified; F17.210 Nicotine dependence, cigarettes, uncomplicated; Y04.2XXA Assault by strike against or bumped into by another person, initial encounter
CPT/HCPCS: 99283

== ENCOUNTER 2017-08-18 11:59 | Emergency (ER) ==
[2017-08-18 12:03] VITALS: BP 167/100; TEMP 97.6; BMI 19.5
--- NOTE | 2017-08-18 13:15 | DI ---
Exam: Two x-rays of the chest. Comparison: 08/03/2017. Reason for exam: Cough. FINDINGS: No pneumothorax, pleural effusion, or focal consolidation. The cardiac silhouette is not enlarged. The imaged osseous structures appear grossly unremarkable without acute fracture. The gal lbladder has presumably been removed. Impression: No acute cardiopulmonary process.
--- NOTE | 2017-08-18 13:29 | ED.PDOC ---
General ED Provider: Dr. MENDOZA HERNANDEZ Chief Complaint: Respiratory Complaint Stated Complaint: cough, congestion Time Seen by Physician: 12:00 Mode of Arrival: Walk-In Information Source: Patient Exam Limitations: No limitations [facility] Nursing and Triage Documentation Reviewed and Agree: Yes Reviewed sepsis parameters & appropriate labs ordered?: Yes System Inflammatory Response Syndrome: Not Applicable Sepsis Protocol: For patient's 13 years and over: Temp is 96.8 and below OR 101 and greater Pulse >90 BPM Resp >20/minute Acutely Altered Mental Status Are patient's symptoms suggestive of a new infection, such as: -Pneumonia -Skin, Soft Tissue -Endocarditis -UTI -Bone, Joint Infection -Implantable Device -Acute Abdominal Infection -Wound Infection -Meningitis -Blood Stream Catheter Infection -Unknown System Inflammatory Response Syndrome: Not Applicable Respiratory Complaint Exam - Respiratory Complaint/Exam Onset/Duration: 3 days Symptoms Are: Resolved Timing: Intermittent Initial Severity: Mild Current Severity: None Location: Throat, Chest Character: Reports: Non-productive cough Aggravating: Reports: None Alleviating: Reports: None Associated Signs and Symptoms: Reports: Nasal congestion. Denies: Rapid breathing, Dyspnea, Fever, Chills, Chest pain, Pleuritic chest pain, Wheezing, Hemoptysis, Dizziness, Calf pain, Calf swelling, Edema, URI, Hoarseness, Sinus discomfort, Vomiting, Sore throat, Weight loss, Decreased oral intake, Increased thirst, Increased appetite, Increased urination Related History: Reports: Similar episode History of Healthcare-Acquired Pneumonia: No Related Surgical History: Reports: None Pulmonary Embolism Risk Factors: Smoking Cardiac Risk Factors: Reports: Smoking Pseudomonas Risk Factors: Reports: None Tuberculosis Risk Factors: Reports: None Status Asthmaticus Risk Factors: Reports: None Home Oxygen Use: No Recent Stress Test: No Recent Echo/LV Function: No Current Antibiotic Use: No Current Asthma Medication Use: No Respiratory Distress: None Inadequate Respiratory Effort: No Dysphagia Present: No Stridor Present: No JVD Present: No Retractions: Not Present Diminished Breath Sounds: No Sinus Tenderness: None Grunting Respirations: No Kussmaul Respirations: No Differential Diagnoses: Pneumonia, Bronchitis Review of Systems - Review Of Systems Constitutional: Reports: No symptoms Eyes: Reports: No symptoms Ears, Nose, Mouth, Throat: Reports: No symptoms Respiratory: Reports: Cough Cardiac: Reports: No symptoms GI: Reports: No symptoms : Reports: No symptoms Musculoskeletal: Reports: No symptoms Skin: Reports: No symptoms Neurological: Reports: No symptoms Endocrine: Reports: No symptoms Hematologic/Lymphatic: Reports: No symptoms All Other Systems: Reviewed and Negative Past Medical History - Past Medical History Previously Healthy: Yes Endocrine: Reports: None Cardiovascular: Reports: Hypertension Respiratory: Reports: COPD, Asthma, Pneumonia ([employer] old records:early pneumonia detected. What treatment given is not recorded.), Other (recent pneumonia/pleurisy (MAY 26 or ), HX TB) Hematological: Reports: None Gastrointestinal: Reports: Other (hep c ) Genitourinary: Reports: None Neuro/Psych: Reports: Anxiety, Depression Musculoskeletal: Reports: None Cancer: Reports: None Last Menstrual Period: n/a Other Pertinent Past Medical History: alcohol abuse, overdoses on alcohol & anxiety/narcotic medications - Surgical History General Surgical History: Reports: Hysterectomy, Cholecystectomy, Orthopedic ( RIGHT KNEE SURGERY. SCOPE SURGERY ON LEFT KNEE), Other (recent heart cath). Denies: CABG (cath recent), Back Surgery (CHRONIC BACK PROBLEMS) - Family History Family History: Reports: Unknown - Social History Smoking Status: Current every day smoker, Heavy tobacco smoker Hx Substance Use: Yes Alcohol Screening: Occasionally Physical Exam - Physical Exam Appearance: Well-appearing, No pain distress, Well-nourished Eyes: MARY, EOMI, Conjunctiva clear ENT: Ears normal, Nose normal, Oropharynx normal Respiratory: Rhonchi Cardiovascular: RRR, Pulses normal, No rub, No murmur GI/: Soft, Nontender, No masses, Bowel sounds normal, No Organomegaly Musculoskeletal: Normal strength, ROM intact, No edema, No calf tenderness Skin: Warm, Dry, Normal color Neurological: Sensation intact, Motor intact, Reflexes intact, Cranial nerves intact, Alert, Oriented Psychiatric: Affect appropriate, Mood appropriate Interpretation - Radiology Interpretation Radiology Interpretation By: Radiologist Radiology Results: No acute changes Critical Care Note - Critical Care Note Total Time (mins): 0 Course - Course Orders, Labs, Meds: Orders Category Date Time Status MOLECULAR FLU A/B Stat LAB 08/18/17 12:42 Uncollected MOLECULAR GROUP A STREP Stat LAB 08/18/17 12:42 Uncollected CHEST, 2 VIEWS PA & LAT Stat RADS 08/18/17 12:42 Ordered Vital Signs: Temp Pulse Resp BP Pulse Ox 08/18/17 12:01 97.6 F 96 H 16 167/100 H 97 Departure - Departure Time of Disposition: 13:28 Disposition: HOME SELF-CARE Discharge Problem: Viral syndrome Instructions: Viral Syndrome (ED) Condition: Good Pt referred to PMD for follow-up: Yes Additional Instructions: Please call your Family Physician as soon as possible to schedule a follow-up appointment. Allergies/Adverse Reactions: Allergies cyclobenzaprine HCl [From Flexeril] Adverse Reaction (Verified 08/18/17 12:04) ketorolac tromethamine [From Toradol] Adverse Reaction (Verified 08/18/17 12:04) levofloxacin [From Levaquin] Adverse Reaction (Verified 08/18/17 12:04) Home Medications: Ambulatory Orders Albuterol Sulfate [Proair Hfa] 2 puff IH Q4H PRN #1 puff 06/03/17 Hydrochlorothiazide 12.5 mg PO DAILY #30 tablet 06/03/17 Black Cohosh 540 mg PO BID 07/01/17 Metoprolol Tartrate [Lopressor] 25 mg PO DAILY 07/16/17 Disposition Discussed With: Patient
== END 2017-08-18 13:34 | disposition home or self-care (01) ==
LOC: ED 11:59
DX: B34.9 Viral infection, unspecified (principal); F17.210 Nicotine dependence, cigarettes, uncomplicated
CPT/HCPCS: 99283

== ENCOUNTER 2017-08-23 12:31 | Emergency (ER) ==
[2017-08-23 12:31] VITALS: BMI 19.5
[2017-08-23 12:42] VITALS: BP 143/96; TEMP 98
[2017-08-23] MEDS ORDERED: DIFLUCAN PO STA (12:42)
[2017-08-23] MEDS ORDERED: LIDOCAINE HCL 1% SDV SUBCUT STA (12:42)
[2017-08-23] MEDS ORDERED: ROCEPHIN IM STA (12:42)
[2017-08-23] MEDS ORDERED: ZITHROMAX PO STA (12:42)
[2017-08-23] MEDS ORDERED: DECADRON 4 MG/ML SDV IM STA (12:43)
[2017-08-23] MEDS ORDERED: DUONEB NEB STA (12:44)
--- NOTE | 2017-08-23 12:45 | ED.PDOC ---
General ED Provider: Dr. MENDOZA HERNANDEZ Chief Complaint: Respiratory Complaint Stated Complaint: cough flu like symp, vaginal discharge Time Seen by Physician: 12:40 (seewith masha at all times ) Mode of Arrival: Walk-In Information Source: Patient Exam Limitations: No limitations Primary Care Provider: [facility] Nursing and Triage Documentation Reviewed and Agree: Yes Reviewed sepsis parameters & appropriate labs ordered?: Yes System Inflammatory Response Syndrome: Not Applicable Sepsis Protocol: For patient's 13 years and over: Temp is 96.8 and below OR 101 and greater Pulse >90 BPM Resp >20/minute Acutely Altered Mental Status Are patient's symptoms suggestive of a new infection, such as: -Pneumonia -Skin, Soft Tissue -Endocarditis -UTI -Bone, Joint Infection -Implantable Device -Acute Abdominal Infection -Wound Infection -Meningitis -Blood Stream Catheter Infection -Unknown System Inflammatory Response Syndrome: Not Applicable Respiratory Complaint Exam - Respiratory Complaint/Exam Onset/Duration: 1 week seen last week pt stated she not improved much has vaginal green D/C Symptoms Are: Still present Timing: Intermittent Initial Severity: Mild Current Severity: Mild Location: Nose, Chest Character: Reports: Non-productive cough Aggravating: Reports: URI Alleviating: Reports: Antibiotics Associated Signs and Symptoms: Reports: URI, Nasal congestion. Denies: Rapid breathing, Dyspnea, Fever, Chills, Chest pain, Pleuritic chest pain, Wheezing, Hemoptysis, Dizziness, Calf pain, Calf swelling, Edema, Hoarseness, Sinus discomfort, Vomiting, Sore throat, Weight loss, Decreased oral intake, Increased thirst, Increased appetite, Increased urination Related History: Reports: Similar episode History of Healthcare-Acquired Pneumonia: No Related Surgical History: Reports: None Pulmonary Embolism Risk Factors: Smoking Cardiac Risk Factors: Reports: Hypertension Pseudomonas Risk Factors: Reports: None Tuberculosis Risk Factors: Reports: Chronic Resp. Faliure Status Asthmaticus Risk Factors: Reports: None Home Oxygen Use: No Recent Stress Test: No Recent Echo/LV Function: No Current Antibiotic Use: No Current Asthma Medication Use: No Respiratory Distress: None Inadequate Respiratory Effort: No Dysphagia Present: No Stridor Present: No JVD Present: No Accessory Muscle Use: No Diminished Breath Sounds: No Sinus Tenderness: None Grunting Respirations: No Kussmaul Respirations: No Differential Diagnoses: Pneumonia, Bronchitis, Lower Resp. Infection Review of Systems - Review Of Systems Constitutional: Reports: Malaise Eyes: Reports: No symptoms Ears, Nose, Mouth, Throat: Reports: No symptoms Respiratory: Reports: Cough Cardiac: Reports: No symptoms GI: Reports: No symptoms : Reports: No symptoms Musculoskeletal: Reports: No symptoms Skin: Reports: No symptoms Neurological: Reports: No symptoms Endocrine: Reports: No symptoms Hematologic/Lymphatic: Reports: No symptoms All Other Systems: Reviewed and Negative Past Medical History - Past Medical History Previously Healthy: Yes Endocrine: Reports: None Cardiovascular: Reports: Hypertension Respiratory: Reports: COPD, Asthma, Pneumonia ([employer] old records:early pneumonia detected. What treatment given is not recorded.), Other (recent pneumonia/pleurisy (MAY 26 or ), HX TB) Hematological: Reports: None Gastrointestinal: Reports: Other (hep c ) Genitourinary: Reports: None Neuro/Psych: Reports: Anxiety, Depression Musculoskeletal: Reports: None Cancer: Reports: None Last Menstrual Period: NA Other Pertinent Past Medical History: alcohol abuse, overdoses on alcohol & anxiety/narcotic medications - Surgical History General Surgical History: Reports: Hysterectomy, Cholecystectomy, Orthopedic ( RIGHT KNEE SURGERY. SCOPE SURGERY ON LEFT KNEE), Other (recent heart cath). Denies: CABG (cath recent), Back Surgery (CHRONIC BACK PROBLEMS) - Family History Family History: Reports: Unknown - Social History Smoking Status: Current every day smoker, Heavy tobacco smoker Hx Substance Use: Yes Alcohol Screening: Occasionally Physical Exam - Physical Exam Appearance: Well-appearing, No pain distress, Well-nourished Eyes: MARY, EOMI, Conjunctiva clear ENT: Ears normal, Nose normal, Oropharynx normal Respiratory: Airway patent, Breath sounds clear, Breath sounds equal, Respirations nonlabored Cardiovascular: RRR, Pulses normal, No rub, No murmur GI/: Soft, Nontender, No masses, Bowel sounds normal, No Organomegaly Musculoskeletal: Normal strength, ROM intact, No edema, No calf tenderness Skin: Warm, Dry, Normal color Neurological: Sensation intact, Motor intact, Reflexes intact, Cranial nerves intact, Alert, Oriented Psychiatric: Affect appropriate, Mood appropriate Critical Care Note - Critical Care Note Total Time (mins): 0 Course - Course Orders, Labs, Meds: Orders Category Date Time Status Azithromycin [Zithromax] MEDS 08/23/17 12:42 Stat 1,000 mg PO ONCE STA Ceftriaxone Sodium [Rocephin] MEDS 08/23/17 12:42 Stat 1 gm IM ONCE STA Fluconazole [Diflucan] MEDS 08/23/17 12:42 Stat 150 mg PO ONCE STA Lidocaine HCl/Pf [Lidocaine HCl 1% Sdv] MEDS 08/23/17 12:42 Stat 5 ml SUBCUT ONCE STA Medications Generic Name Dose Route Start Last Admin Trade Name Candelaria PRN Reason Stop Dose Admin Azithromycin 1,000 mg 08/23/17 12:42 Zithromax PO 08/23/17 12:43 ONCE STA Ceftriaxone Sodium 1 gm 08/23/17 12:42 Rocephin IM 08/23/17 12:43 ONCE STA Fluconazole 150 mg 08/23/17 12:42 Diflucan PO 08/23/17 12:43 ONCE STA Lidocaine HCl 5 ml 08/23/17 12:42 Lidocaine Hcl 1% Sdv SUBCUT 08/23/17 12:43 ONCE STA Vital Signs: Temp Pulse Resp BP Pulse Ox 08/23/17 12:34 98 F 106 H 20 143/96 H 97 Departure - Departure Time of Disposition: 12:47 Disposition: HOME SELF-CARE Discharge Problem: Vaginal discharge, Viral syndrome Instructions: Sexually Transmitted Diseases (ED), Cervicitis (ED), Chlamydia ( ED), Safe Sex (ED), Condom Use (ED), Trichomoniasis (ED) Condition: Good Pt referred to PMD for follow-up: Yes Additional Instructions: Please call your Family Physician as soon as possible to schedule a follow-up appointment. Allergies/Adverse Reactions: Allergies cyclobenzaprine HCl [From Flexeril] Adverse Reaction (Verified 08/18/17 12:04) ketorolac tromethamine [From Toradol] Adverse Reaction (Verified 08/18/17 12:04) levofloxacin [From Levaquin] Adverse Reaction (Verified 08/18/17 12:04) Home Medications: Ambulatory Orders Hydrochlorothiazide 12.5 mg PO DAILY #30 tablet 06/03/17 Metoprolol Tartrate [Lopressor] 25 mg PO DAILY 07/16/17
== END 2017-08-23 13:58 | disposition home or self-care (01) ==
LOC: ED 12:31
DX: B34.9 Viral infection, unspecified (principal); N89.8 Other specified noninflammatory disorders of vagina; F17.210 Nicotine dependence, cigarettes, uncomplicated; I10 Essential (primary) hypertension
CPT/HCPCS: 94640; 96372; 99283

== ENCOUNTER 2017-09-17 09:55 | Emergency (ER) ==
[2017-09-17 10:01] VITALS: BP 131/75; TEMP 98.4; BMI 23.3
[2017-09-17] MEDS ORDERED: VALIUM SYRINGE IVP STA (10:03)
--- NOTE | 2017-09-17 11:56 | ED.PDOC ---
General ED Provider: Dr. MENDOZA HERNANDEZ Chief Complaint: Hypertension Stated Complaint: hypertension , anxiety Time Seen by Physician: 10:00 (present entire nursing staff in ED and Shira Noel) Information Source: Patient Exam Limitations: No limitations [facility] Nursing and Triage Documentation Reviewed and Agree: Yes Reviewed sepsis parameters & appropriate labs ordered?: Yes System Inflammatory Response Syndrome: Not Applicable Sepsis Protocol: For patient's 13 years and over: Temp is 96.8 and below OR 101 and greater Pulse >90 BPM Resp >20/minute Acutely Altered Mental Status Are patient's symptoms suggestive of a new infection, such as: -Pneumonia -Skin, Soft Tissue -Endocarditis -UTI -Bone, Joint Infection -Implantable Device -Acute Abdominal Infection -Wound Infection -Meningitis -Blood Stream Catheter Infection -Unknown System Inflammatory Response Syndrome: Not Applicable Psychological Complaint Exam - Psychiatric Complaint/Exam Patient Complains Of: Present: Depression. Absent: Suicidal thoughts, Suicidal gestures, Other (out of meds high blood pressure meds ) Onset/Duration: this morning Symptoms Are: Resolved Timing: Intermittent Episodes Lasting: Hours Initial Severity: Moderate Current Severity: Moderate Character: Present: Depressed, Fearful, Anxious, Frustrated Aggravating: Reports: None Associated Signs And Symptoms: Denies: Hostile, Confused, Hallucinating, Paranoid behavior, Sleep disturbance, Appetite change Related History: Reports: Recent stressors (out of meds ). Denies: Suicidal thoughts, Suicidal plan, Suicidal gestures, Homicidal thoughts, Homicidal plan, Homicidal gestures, Prior attempts Completed Suicide Risk Factors: Living alone, Unemployed Patient In Custody Of Police: No Social Withdrawal Present: Yes Social Isolation Present: Yes Prior Suicide Attempt: No Related Surgical History: Reports: None Patient Uncooperative For Exam: No Mood: Present: Depressed, Angry, Anxious Appearance: Present: Clean Thought Process: Present: Logical Insight: Present: Good Memory: Intact Judgement: Normal Danger To Others: No Differential Diagnoses: Anxiety, Depression Review of Systems - Review Of Systems Constitutional: Reports: Loss of appetite Eyes: Reports: No symptoms Ears, Nose, Mouth, Throat: Reports: No symptoms Respiratory: Reports: No symptoms Cardiac: Reports: No symptoms GI: Reports: No symptoms : Reports: No symptoms Musculoskeletal: Reports: No symptoms Skin: Reports: No symptoms Neurological: Reports: Anxiety, Cognitive dysfunction Endocrine: Reports: No symptoms Hematologic/Lymphatic: Reports: No symptoms All Other Systems: Reviewed and Negative Past Medical History - Past Medical History Previously Healthy: Yes Endocrine: Reports: None Cardiovascular: Reports: Hypertension Respiratory: Reports: COPD, Asthma, Pneumonia ([employer] old records:early pneumonia detected. What treatment given is not recorded.), Other (recent pneumonia/pleurisy (MAY 26 or ), HX TB) Hematological: Reports: None Gastrointestinal: Reports: Other (hep c ) Genitourinary: Reports: None Neuro/Psych: Reports: Anxiety, Depression Musculoskeletal: Reports: None Cancer: Reports: None Last Menstrual Period: N/A Other Pertinent Past Medical History: alcohol abuse, overdoses on alcohol & anxiety/narcotic medications - Surgical History General Surgical History: Reports: Hysterectomy, Cholecystectomy, Orthopedic ( RIGHT KNEE SURGERY. SCOPE SURGERY ON LEFT KNEE), Other (recent heart cath). Denies: CABG (cath recent), Back Surgery (CHRONIC BACK PROBLEMS) - Family History Family History: Reports: Unknown - Social History Smoking Status: Current every day smoker, Heavy tobacco smoker Hx Substance Use: Yes Alcohol Screening: Occasionally - Immunizations Tetanus Shot up to Date: No Physical Exam - Physical Exam Appearance: Well-appearing, No pain distress, Well-nourished Eyes: MARY, EOMI, Conjunctiva clear ENT: Ears normal, Nose normal, Oropharynx normal Respiratory: Airway patent, Breath sounds clear, Breath sounds equal, Respirations nonlabored Cardiovascular: RRR, Pulses normal, No rub, No murmur GI/: Soft, Nontender, No masses, Bowel sounds normal, No Organomegaly Musculoskeletal: Normal strength, ROM intact, No edema, No calf tenderness Skin: Warm, Dry, Normal color Neurological: Sensation intact, Motor intact, Reflexes intact, Cranial nerves intact, Alert, Oriented Psychiatric: Affect appropriate, Mood appropriate Interpretation - Reimbursement Rep Rate: Normal Rhythm: Sinus Ectopy: None - EKG Interpretation Rate: Normal Rhythm: Sinus Ectopy: None [place]: NL ST Segment: Normal Critical Care Note - Critical Care Note Total Time (mins): 0 Course - Course Hematology/Chemistry: 09/17/17 10:10 09/17/17 10:10 Orders, Labs, Meds: Lab Review 09/17/17 09/17/17 10:10 10:10 WBC 5.40 RBC 4.32 Hgb 14.3 Hct 41.5 MCV 96.1 MCH 33.1 H MCHC 34.5 RDW Coeff of Sheryl 12.1 Plt Count 288 Immature Gran % (Auto) 0.2 Neut % (Auto) 53.9 Lymph % (Auto) 33.9 Martin % (Auto) 7.2 Eos % (Auto) 4.1 Baso % (Auto) 0.7 Immature Gran # (Auto) 0.0 Neut # 2.9 Lymph # 1.8 Martin # 0.4 Eos # 0.2 Baso # 0.0 Sodium 143 Potassium 3.2 L Chloride 109 H Carbon Dioxide 22 Anion Gap 15.2 BUN 16 Creatinine 0.79 Estimated GFR (MDRD) 75.00 BUN/Creatinine Ratio 20.25 Glucose 102 Calcium 9.1 Total Bilirubin < 0.3 AST 36 ALT 39 Alkaline Phosphatase 68 Total Creatine Kinase 261 CK-MB (CK-2) 7.0 H* CK-MB (CK-2) % 2.62368 Troponin I 0.0130 Total Protein 6.9 Albumin 3.5 Globulin 3.4 Albumin/Globulin Ratio 1.03 Orders Category Date Time Status EKG-(ED ONLY) Stat CARDIO 09/17/17 10:02 Completed CBC W/ AUTO DIFF Stat LAB 09/17/17 10:10 Completed COMPREHENSIVE METABOLIC PANEL Stat LAB 09/17/17 10:10 Completed CREATINE KINASE Stat LAB 09/17/17 10:10 Completed TROPONIN I Stat LAB 09/17/17 10:10 Completed Diazepam Syringe [Valium Syringe] MEDS 09/17/17 10:03 Discontinued 2 mg IVP ONCE STA Medications Discontinued Medications Generic Name Dose Route Start Last Admin Trade Name Freq PRN Reason Stop Dose Admin Diazepam 2 mg 09/17/17 10:03 09/17/17 10:12 Valium Syringe IVP 09/17/17 10:04 2 mg ONCE STA Administration Vital Signs: Temp Pulse Resp BP Pulse Ox 09/17/17 09:57 98.4 F 77 22 131/75 100 Departure - Departure Time of Disposition: 11:59 Disposition: HOME SELF-CARE Discharge Problem: Anxiety, Depression Instructions: Anxiety (ED), Depression (ED) Condition: Good Pt referred to PMD for follow-up: Yes IPMP verified?: Yes Additional Instructions: Please call your Family Physician as soon as possible to schedule a follow-up appointment. Allergies/Adverse Reactions: Allergies cyclobenzaprine HCl [From Flexeril] Adverse Reaction (Verified 09/17/17 10:01) ketorolac tromethamine [From Toradol] Adverse Reaction (Verified 09/17/17 10:01) levofloxacin [From Levaquin] Adverse Reaction (Verified 09/17/17 10:01) Home Medications: Ambulatory Orders Hydrochlorothiazide 12.5 mg PO DAILY #30 tablet 06/03/17 Metoprolol Tartrate [Lopressor] 25 mg PO DAILY 07/16/17 Discharge Problem: Depression Qualifiers: Depression Type: unspecified Qualified Code(s): F32.9 - Major depressive disorder, single episode, unspecified
== END 2017-09-17 12:10 | disposition home or self-care (01) ==
LOC: ED 09:55
DX: F41.9 Anxiety disorder, unspecified (principal); F32.9 Major depressive disorder, single episode, unspecified; I10 Essential (primary) hypertension; R74.8 Abnormal levels of other serum enzymes; F17.210 Nicotine dependence, cigarettes, uncomplicated; J44.9 Chronic obstructive pulmonary disease, unspecified; Z91.14 Patient's other noncompliance with medication regimen; R07.9 Chest pain, unspecified; R25.1 Tremor, unspecified
CPT/HCPCS: 36415; 80053; 82550; 82553; 84484; 85025; 93005; 93010; 96375; 99283

== ENCOUNTER 2017-11-29 11:58 | Outpatient (CLI) ==
[2017-11-29 12:27] VITALS: BMI 20.7
== END 2017-11-29 11:59 | disposition short-term general hospital (02) ==
LOC: AMBL 11:58
PROVIDERS: ATTEND Internal Medicine
DX: M25.551 Pain in right hip (principal); M54.5 Low back pain; S50.01XA Contusion of right elbow, initial encounter; R29.6 Repeated falls; W19.XXXA Unspecified fall, initial encounter

== ENCOUNTER 2017-11-29 12:06 | Emergency (ER) ==
[2017-11-29] MEDS ORDERED: SODIUM CHLORIDE 1,000 ML IV STA (12:24)
[2017-11-29 12:27] VITALS: TEMP 98.1; BMI 20.7
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
[2017-11-29 13:00] VITALS: BP 92/55
== END 2017-11-29 12:50 | disposition left against medical advice (07) ==
LOC: ED 12:06
DX: M25.551 Pain in right hip (principal); M25.521 Pain in right elbow; M54.2 Cervicalgia; R51 Headache; R07.89 Other chest pain; R10.9 Unspecified abdominal pain; M54.9 Dorsalgia, unspecified; F17.210 Nicotine dependence, cigarettes, uncomplicated; W18.2XXA Fall in (into) shower or empty bathtub, initial encounter
CPT/HCPCS: 93005; 93010; 99284

== ENCOUNTER 2017-12-20 10:29 | Emergency (ER) ==
[2017-12-20 10:38] VITALS: BP 151/90; TEMP 97.6; BMI 19.8
--- NOTE | 2017-12-20 11:28 | ED.PDOC ---
General ED Provider: Dr. MENDOZA HERNANDEZ Chief Complaint: Abdominal Pain Stated Complaint: abdominal pain Time Seen by Physician: 10:30 (seen with nurse ) Mode of Arrival: Walk-In Information Source: Patient Exam Limitations: No limitations Primary Care Provider: [facility] Nursing and Triage Documentation Reviewed and Agree: Yes Reviewed sepsis parameters & appropriate labs ordered?: Yes System Inflammatory Response Syndrome: Not Applicable Sepsis Protocol: For patient's 13 years and over: Temp is 96.8 and below OR 101 and greater Pulse >90 BPM Resp >20/minute Acutely Altered Mental Status Are patient's symptoms suggestive of a new infection, such as: -Pneumonia -Skin, Soft Tissue -Endocarditis -UTI -Bone, Joint Infection -Implantable Device -Acute Abdominal Infection -Wound Infection -Meningitis -Blood Stream Catheter Infection -Unknown System Inflammatory Response Syndrome: Not Applicable GI Complaint Exam - Abdominal Pain Complaint/Exam Onset: Gradual Duration: abdominal pain rectal bleeding pain is chronic and Symptoms Are: Resolved Timing: Intermittent Initial Severity: Mild Current Severity: Mild Location of Pain: Discrete Radiates To: Reports: Back Character: Reports: Aching Aggravating: Reports: None Alleviating: Reports: None Associated Signs and Symptoms: Reports: Cough. Denies: Diaphoresis, Fever, Chest pain, Dizziness, Back pain, Constipation, Blood in stool, Dysuria, Urinary frequency, Decreased urine output, Decreased appetite, Vaginal bleeding , Vaginal discharge, Nausea, Vomiting, Diarrhea, Sore throat, Decreased activity Related History: Reports: Similar episode Cardiac Risk Factors: Reports: Hypertension Ectopic Risk Factors: Reports: None Ovarian Torsion Risk Factors: Reports: None Surgical Obstruction Risk Factors: Reports: None Related Surgical History: Reports: None Patient Rh Status: Unknown Abdominal Findings: Present: None Review of Systems - Review Of Systems Constitutional: Reports: No symptoms Eyes: Reports: No symptoms Ears, Nose, Mouth, Throat: Reports: No symptoms Respiratory: Reports: No symptoms Cardiac: Reports: No symptoms GI: Reports: Abdominal pain, Rectal bleeding : Reports: No symptoms Musculoskeletal: Reports: No symptoms Skin: Reports: No symptoms Neurological: Reports: No symptoms Endocrine: Reports: No symptoms Hematologic/Lymphatic: Reports: No symptoms All Other Systems: Reviewed and Negative Past Medical History - Past Medical History Previously Healthy: Yes Endocrine: Reports: None Cardiovascular: Reports: Hypertension Respiratory: Reports: COPD, Asthma, Pneumonia ([facility] old records:early pneumonia detected. What treatment given is not recorded.), Other (recent pneumonia/pleurisy (MAY 26 or ), HX TB) Hematological: Reports: None Gastrointestinal: Reports: Other (hep c ) Genitourinary: Reports: None Neuro/Psych: Reports: Anxiety, Depression Musculoskeletal: Reports: None Cancer: Reports: None Last Menstrual Period: N/A Other Pertinent Past Medical History: alcohol abuse, overdoses on alcohol & anxiety/narcotic medications - Surgical History General Surgical History: Reports: Hysterectomy, Cholecystectomy, Orthopedic ( RIGHT KNEE SURGERY. SCOPE SURGERY ON LEFT KNEE), Other (recent heart cath). Denies: CABG (cath recent), Back Surgery (CHRONIC BACK PROBLEMS) - Family History Family History: Reports: Unknown - Social History Smoking Status: Current every day smoker, Heavy tobacco smoker Hx Substance Use: Yes Alcohol Screening: Heavy - Immunizations Tetanus Shot up to Date: Yes Physical Exam - Physical Exam Appearance: Well-appearing, No pain distress, Well-nourished Eyes: MARY, EOMI, Conjunctiva clear ENT: Ears normal, Nose normal, Oropharynx normal Respiratory: Airway patent, Breath sounds clear, Breath sounds equal, Respirations nonlabored Cardiovascular: RRR, Pulses normal, No rub, No murmur GI/: Soft, Nontender (rectal exam with nurse present negative for gross bloos ), No masses, Bowel sounds normal, No Organomegaly Musculoskeletal: Normal strength, ROM intact, No edema, No calf tenderness Skin: Warm, Dry, Normal color Neurological: Sensation intact, Motor intact, Reflexes intact, Cranial nerves intact, Alert, Oriented Psychiatric: Affect appropriate, Mood appropriate Critical Care Note - Critical Care Note Total Time (mins): 0 Course - Course Orders, Labs, Meds: Orders Category Date Time Status EKG-(ED ONLY) Stat CARDIO 12/20/17 11:21 Stop Req AMYLASE Stat LAB 12/20/17 11:20 Stop Req CBC W/ AUTO DIFF Stat LAB 12/20/17 11:20 Stop Req COMPREHENSIVE METABOLIC PANEL Stat LAB 12/20/17 11:20 Stop Req LIPASE Stat LAB 12/20/17 11:20 Stop Req PARTIAL THROMBOPLASTIN TIME Stat LAB 12/20/17 11:21 Stop Req PT WITH INR Stat LAB 12/20/17 11:[address] ABDOMEN/PELVIS WO CONTRAST Stat RADS 12/20/17 11:[address] CHEST W/O CONTRAST Stat RADS 12/20/17 11:20 Stop Req Vital Signs: Temp Pulse Resp BP Pulse Ox 12/20/17 10:29 97.6 F 80 22 151/90 H 98 Departure - Departure Time of Disposition: 11:28 Disposition: AMA Discharge Problem: Abdominal pain Instructions: Abdominal Pain (ED) Condition: Good Pt referred to PMD for follow-up: Yes IPMP verified?: No Additional Instructions: Please call your Family Physician as soon as possible to schedule a follow-up appointment. Allergies/Adverse Reactions: Allergies cyclobenzaprine HCl [From Flexeril] Adverse Reaction (Verified 11/29/17 12:12) ketorolac tromethamine [From Toradol] Adverse Reaction (Verified 11/29/17 12:12) levofloxacin [From Levaquin] Adverse Reaction (Verified 11/29/17 12:12) Home Medications: Ambulatory Orders 1 [No Reported Medications] 11/29/17
== END 2017-12-20 11:30 | disposition left against medical advice (07) ==
LOC: ED 10:29
DX: R10.9 Unspecified abdominal pain (principal); K92.1 Melena; R05 Cough; I10 Essential (primary) hypertension; F17.210 Nicotine dependence, cigarettes, uncomplicated
CPT/HCPCS: 99283

== ENCOUNTER 2018-02-08 17:58 | Outpatient (CLI) ==
[2018-02-08 18:22] VITALS: BMI 19.3
== END 2018-02-09 18:04 ==
LOC: AMBL 17:58
PROVIDERS: ATTEND Emergency Medicine
DX: S99.912A Unspecified injury of left ankle, initial encounter (principal); S90.519A Abrasion, unspecified ankle, initial encounter; V09.9XXA Pedestrian injured in unspecified transport accident, initial encounter

== ENCOUNTER 2018-02-08 18:14 | Emergency (ER) ==
[2018-02-08 18:22] VITALS: BP 115/61; TEMP 97.6; BMI 19.3
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
== END 2018-02-08 20:04 | disposition home or self-care (01) ==
LOC: ED 18:14
DX: S80.12XA Contusion of left lower leg, initial encounter (principal); V09.9XXA Pedestrian injured in unspecified transport accident, initial encounter; F17.210 Nicotine dependence, cigarettes, uncomplicated; R91.1 Solitary pulmonary nodule
CPT/HCPCS: 99283

== ENCOUNTER 2018-02-11 14:45 | Emergency (ER) ==
[2018-02-11 14:55] VITALS: BP 157/108; TEMP 97.6; BMI 19.5
--- NOTE | 2018-02-11 15:49 | CT ---
EXAM: CT abdomen pelvis without contrast HISTORY: Abdominal pain. Patient with history of appendectomy, cholecystectomy and hysterectomy. COMPARISON: CT abdomen pelvis 06/01/[address] pelvis, 02 0202/02/2018 TECHNIQUE: Serial axial images of the abdomen pelvis were performed from the lung bases through the inferior pelvis without contrast. These were viewed in multiple planes. FINDINGS: Lungs are clear with no consolidation Evaluation is limited due to lack of contrast. Liver is unremarkable. The gallbladder has been rese cted. There is a 1.7 cm left adrenal nodule unchanged from exam 2017, with Hounsfield units suggesti ve of adenoma. The kidneys are unremarkable. The right adrenal gland is normal. The spleen is norm al. Pancreas is normal. Stomach is normal. Small bowel in the abdomen pelvis is unremarkable. The colon is unremarkable. Urinary bladder is di stended. There is a mass subjacent to the anterior left pubic ramus measuring 2.7 x 2.3 cm. Urinary bladder is unremarkable. The osseous structures are unremarkable. IMPRESSION: 1. The anterior left pelvic mass from prior examination measures slightly changed from prior measure ments. This has been present and is similar when compared to 2011. 2. No acute abnormality of the urinary bladder is identified with mild bladder distension. 3. Status post cholecystectomy. 4. Benign left adrenal adenoma.
--- NOTE | 2018-02-11 16:02 | ED.PDOC ---
General ED Provider: Dr. MENDOZA HERNANDEZ Chief Complaint: GI Bleed Stated Complaint: reported of intermittent GI Bleed x 1 week Time Seen by Physician: 15:00 (MICHAEL RN PRESENT AT ALL TIMES ) Mode of Arrival: Walk-In Information Source: Patient Exam Limitations: No limitations Nursing and Triage Documentation Reviewed and Agree: Yes Does patient meet sepsis criteria?: No If yes, has appropriate treatment been initiated?: No System Inflammatory Response Syndrome: Not Applicable Sepsis Protocol: For patient's 13 years and over: Temp is 96.8 and below OR 101 and greater Pulse >90 BPM Resp >20/minute Acutely Altered Mental Status Are patient's symptoms suggestive of a new infection, such as: -Pneumonia -Skin, Soft Tissue -Endocarditis -UTI -Bone, Joint Infection -Implantable Device -Acute Abdominal Infection -Wound Infection -Meningitis -Blood Stream Catheter Infection -Unknown GI Complaint Exam - Abdominal Pain Complaint/Exam Onset: Gradual Duration: 1 WEEK Symptoms Are: Resolved Timing: Intermittent Initial Severity: Mild Current Severity: None Location of Pain: Diffuse (NOT PRESENT ON ARRIVAL) Radiates To: Denies: Chest, Back, Flank, LLQ, RLQ, Inguinal Character: Reports: Dull Aggravating: Reports: None Alleviating: Reports: None Associated Signs and Symptoms: Denies: Diaphoresis, Fever, Cough, Chest pain, Dizziness, Back pain, Constipation, Blood in stool, Dysuria, Urinary frequency, Decreased urine output, Decreased appetite, Vaginal bleeding, Vaginal discharge , Nausea, Vomiting, Diarrhea, Sore throat, Decreased activity AAA Risk Factors: Reports: Smoking Cardiac Risk Factors: Reports: Hypertension Ectopic Risk Factors: Reports: None Ovarian Torsion Risk Factors: Reports: None Surgical Obstruction Risk Factors: Reports: None Related Surgical History: Reports: None Patient Rh Status: Unknown Abdominal Findings: Present: None Differential Diagnoses: Appendicitis, Bowel Obstruction, Constipation, Diverticulitis Review of Systems - Review Of Systems Constitutional: Reports: No symptoms Eyes: Reports: No symptoms Ears, Nose, Mouth, Throat: Reports: No symptoms Respiratory: Reports: No symptoms Cardiac: Reports: No symptoms GI: Reports: Abdominal pain, Rectal bleeding : Reports: No symptoms Musculoskeletal: Reports: No symptoms Skin: Reports: No symptoms Neurological: Reports: No symptoms Endocrine: Reports: No symptoms Hematologic/Lymphatic: Reports: No symptoms All Other Systems: Reviewed and Negative Past Medical History - Past Medical History Previously Healthy: Yes Endocrine: Reports: None Cardiovascular: Reports: Hypertension Respiratory: Reports: COPD, Asthma, Pneumonia ([facility] [employer] old records:early pneumonia detected. What treatment given is not recorded.), Other (recent pneumonia/pleurisy (MAY 26 or ), HX TB) Hematological: Reports: None Gastrointestinal: Reports: Other (hep c ) Genitourinary: Reports: None Neuro/Psych: Reports: Anxiety, Depression Musculoskeletal: Reports: None Cancer: Reports: None Last Menstrual Period: unknown Other Pertinent Past Medical History: alcohol abuse, overdoses on alcohol & anxiety/narcotic medications - Surgical History General Surgical History: Reports: Hysterectomy, Cholecystectomy, Orthopedic ( RIGHT KNEE SURGERY. SCOPE SURGERY ON LEFT KNEE), Other (recent heart cath). Denies: CABG (cath recent), Back Surgery (CHRONIC BACK PROBLEMS) - Family History Family History: Reports: Unknown - Social History Smoking Status: Current every day smoker, Heavy tobacco smoker Hx Substance Use: Yes (in past) Alcohol Screening: Heavy Physical Exam - Physical Exam Appearance: Well-appearing, No pain distress, Well-nourished Eyes: MARY, EOMI, Conjunctiva clear ENT: Ears normal, Nose normal, Oropharynx normal Respiratory: Airway patent, Breath sounds clear, Breath sounds equal, Respirations nonlabored Cardiovascular: RRR, Pulses normal, No rub, No murmur GI/: Soft, Nontender, No masses, Bowel sounds normal, No Organomegaly Musculoskeletal: Normal strength, ROM intact, No edema, No calf tenderness Skin: Warm, Dry, Normal color Neurological: Sensation intact, Motor intact, Reflexes intact, Cranial nerves intact, Alert, Oriented Psychiatric: Affect appropriate, Mood appropriate Interpretation - Radiology Interpretation Radiology Interpretation By: Radiologist Radiology Results: No acute changes Critical Care Note - Critical Care Note Total Time (mins): 0 Course - Course Hematology/Chemistry: 02/11/18 14:58 Orders, Labs, Meds: Lab Review 02/11/18 02/11/18 14:58 15:05 WBC 6.81 RBC 4.15 L Hgb 13.7 Hct 39.9 MCV 96.1 MCH 33.0 H MCHC 34.3 RDW Coeff of Sheryl 12.5 Plt Count 258 Immature Gran % (Auto) 0.1 Neut % (Auto) 49.7 Lymph % (Auto) 40.2 Haywood % (Auto) 6.6 Eos % (Auto) 2.2 Baso % (Auto) 1.2 Immature Gran # (Auto) 0.0 Neut # (Auto) 3.4 Lymph # (Auto) 2.7 Haywood # (Auto) 0.5 Eos # (Auto) 0.2 Baso # (Auto) 0.1 Stl Occult Blood (IFOB) Negative Stool Occult Blood #2 Pending Stool Occult Blood #3 Pending Orders Category Date Time Status CBC W/ AUTO DIFF Stat LAB 02/11/18 14:58 Ordered COMPREHENSIVE METABOLIC PANEL Stat LAB 02/11/18 14:58 Ordered OCCULT BLOOD, STOOL Stat LAB 02/11/18 15:05 Results PARTIAL THROMBOPLASTIN TIME Stat LAB 02/11/18 14:58 Ordered PT WITH INR Stat LAB 02/11/18 14:[address] ABDOMEN/PELVIS WO CONTRAST Stat RADS 02/11/18 15:01 Ordered Vital Signs: Temp Pulse Resp BP Pulse Ox 02/11/18 14:46 97.6 F 106 H 20 157/108 H 96 Departure - Departure Time of Disposition: 16:03 (DISCUSSED OCCLUT BLOOD WHICH WAS OBTAINED WITH MICHAEL PRESENT. PT HAS A PELVIC MASS WHICH WAS NOTED ON CT UNCHANGED SINCE 2010. COLOCNSCOPY DISCUSSED ) Disposition: HOME SELF-CARE Discharge Problem: Gastrointestinal hemorrhage, Rectal bleeding Instructions: Rectal Bleeding (ED) Condition: Good Pt referred to PMD for follow-up: Yes IPMP verified?: No Additional Instructions: Please call your Family Physician as soon as possible to schedule a follow-up appointment.MUST HAVE A COLONSCOPY MERRICK Allergies/Adverse Reactions: Allergies cyclobenzaprine HCl [From Flexeril] Adverse Reaction (Verified 02/11/18 14:55) ketorolac tromethamine [From Toradol] Adverse Reaction (Verified 02/11/18 14:55) levofloxacin [From Levaquin] Adverse Reaction (Verified 02/11/18 14:55) methocarbamol [From Robaxin] Adverse Reaction (Verified 02/11/18 14:55) Home Medications: Ambulatory Orders 1 [No Reported Medications] 11/29/17
== END 2018-02-11 16:12 | disposition home or self-care (01) ==
LOC: ED 14:45
DX: K92.1 Melena (principal); R19.00 Intra-abdominal and pelvic swelling, mass and lump, unspecified site; I10 Essential (primary) hypertension; F17.210 Nicotine dependence, cigarettes, uncomplicated
CPT/HCPCS: 36415; 80053; 82272; 85025; 85610; 85730; 99283

== ENCOUNTER 2018-02-26 18:29 | Outpatient (CLI) ==
[2018-02-26 18:58] VITALS: BMI 20.9
== END 2018-02-26 18:36 | disposition critical access hospital (66) ==
LOC: AMBL 18:29
PROVIDERS: ATTEND Internal Medicine Geriatric Medicine
DX: S51.812A Laceration without foreign body of left forearm, initial encounter (principal); S51.811A Laceration without foreign body of right forearm, initial encounter; F32.9 Major depressive disorder, single episode, unspecified; F10.10 Alcohol abuse, uncomplicated; X78.8XXA Intentional self-harm by other sharp object, initial encounter

== ENCOUNTER 2018-02-26 18:46 | Emergency (ER) ==
[2018-02-26 18:58] VITALS: BP 108/77; TEMP 98.5; BMI 20.9
--- NOTE | 2018-02-26 19:49 | ED.PDOC ---
General ED Provider: Dr. ROSARIO WESTFALL Chief Complaint: Laceration Stated Complaint: Fell and injured the right forearm. [place] abrasion to right forearm, bleeding stopped. Time Seen by Physician: 19:47 Mode of Arrival: Ambulance Information Source: Patient, EMT Nursing and Triage Documentation Reviewed and Agree: Yes Does patient meet sepsis criteria?: No If yes, has appropriate treatment been initiated?: No System Inflammatory Response Syndrome: Not Applicable Sepsis Protocol: For patient's 13 years and over: Temp is 96.8 and below OR 101 and greater Pulse >90 BPM Resp >20/minute Acutely Altered Mental Status Are patient's symptoms suggestive of a new infection, such as: -Pneumonia -Skin, Soft Tissue -Endocarditis -UTI -Bone, Joint Infection -Implantable Device -Acute Abdominal Infection -Wound Infection -Meningitis -Blood Stream Catheter Infection -Unknown Skin Complaint Exam - Laceration/Abrasion/Hand Complaint/Exam Location of Injury: Right Mechanism of Injury: Abrasion Symptoms Are: Still present Initial Severity: Mild Current Severity: Mild Aggravating: Movement Alleviating: None Associated Signs and Symptoms: Denies: Fever, Chills, Erythema, Numbness, Tingling Differential Diagnoses: Abrasion Review of Systems - Review Of Systems Constitutional: Reports: No symptoms Eyes: Reports: No symptoms Ears, Nose, Mouth, Throat: Reports: No symptoms Respiratory: Reports: No symptoms Cardiac: Reports: No symptoms GI: Reports: No symptoms : Reports: No symptoms Musculoskeletal: Reports: No symptoms Skin: Reports: No symptoms Neurological: Reports: No symptoms Endocrine: Reports: No symptoms Hematologic/Lymphatic: Reports: No symptoms All Other Systems: Reviewed and Negative Past Medical History - Past Medical History Previously Healthy: Yes Endocrine: Reports: None Cardiovascular: Reports: Hypertension Respiratory: Reports: COPD, Asthma, Pneumonia ([employer] old records:early pneumonia detected. What treatment given is not recorded.), Other (recent pneumonia/pleurisy (MAY 26 or ), HX TB) Hematological: Reports: None Gastrointestinal: Reports: Other (hep c ) Genitourinary: Reports: None Neuro/Psych: Reports: Anxiety, Depression Musculoskeletal: Reports: None Cancer: Reports: None Last Menstrual Period: na Other Pertinent Past Medical History: alcohol abuse, overdoses on alcohol & anxiety/narcotic medications - Surgical History General Surgical History: Reports: Hysterectomy, Cholecystectomy, Orthopedic ( RIGHT KNEE SURGERY. SCOPE SURGERY ON LEFT KNEE), Other (recent heart cath). Denies: CABG (cath recent), Back Surgery (CHRONIC BACK PROBLEMS) - Family History Family History: Reports: Unknown - Social History Smoking Status: Current every day smoker, Heavy tobacco smoker Hx Substance Use: Yes (in past) Alcohol Screening: Heavy - Immunizations Tetanus Shot up to Date: Yes Physical Exam - Physical Exam Appearance: Well-appearing, No pain distress, Well-nourished Eyes: MARY, EOMI, Conjunctiva clear ENT: Ears normal, Nose normal, Oropharynx normal Respiratory: Airway patent, Breath sounds clear, Breath sounds equal, Respirations nonlabored Cardiovascular: RRR, Pulses normal, No rub, No murmur GI/: Soft, Nontender, No masses, Bowel sounds normal, No Organomegaly Musculoskeletal: Normal strength, ROM intact, No edema, No calf tenderness Skin: Warm (abrasion right mid forearm), Dry, Normal color Neurological: Sensation intact, Motor intact, Reflexes intact, Cranial nerves intact, Alert, Oriented Psychiatric: Affect appropriate, Mood appropriate Critical Care Note - Critical Care Note Total Time (mins): 30 Course - Course Vital Signs: Temp Pulse Resp BP Pulse Ox 02/26/18 18:47 98.5 F 96 H 20 108/77 93 L Departure - Departure Time of Disposition: 19:50 Disposition: HOME SELF-CARE Discharge Problem: Abrasion forearm Qualifiers: Encounter type: initial encounter Laterality: right Qualified Code(s): S50.811A - Abrasion of right forearm, initial encounter Instructions: Abrasion (ED) Condition: Stable Pt referred to PMD for follow-up: Yes IPMP verified?: No Additional Instructions: wound care and hygiene Can put TRiple antibiotics. Allergies/Adverse Reactions: Allergies cyclobenzaprine HCl [From Flexeril] Adverse Reaction (Verified 02/11/18 14:55) ketorolac tromethamine [From Toradol] Adverse Reaction (Verified 02/11/18 14:55) levofloxacin [From Levaquin] Adverse Reaction (Verified 02/11/18 14:55) methocarbamol [From Robaxin] Adverse Reaction (Verified 02/11/18 14:55) Home Medications: Ambulatory Orders 1 [No Reported Medications] 11/29/17 Disposition Discussed With: Patient
== END 2018-02-26 20:05 | disposition home or self-care (01) ==
LOC: ED 18:46
DX: S50.811A Abrasion of right forearm, initial encounter (principal); W19.XXXA Unspecified fall, initial encounter; F17.210 Nicotine dependence, cigarettes, uncomplicated
CPT/HCPCS: 99283

== ENCOUNTER 2018-09-05 19:54 | Outpatient (CLI) ==
[2018-07-29 18:55] VITALS: BMI 17.7
== END 2018-09-05 20:08 | disposition short-term general hospital (02) ==
LOC: AMBL 19:54
PROVIDERS: ATTEND Family Medicine
DX: R51 Headache (principal); R20.0 Anesthesia of skin; R29.810 Facial weakness; R47.81 Slurred speech; R53.1 Weakness; Z86.73 Personal history of transient ischemic attack (TIA), and cerebral infarction without residual deficits

== ENCOUNTER 2018-10-16 12:24 | Outpatient (CLI) ==
[2018-10-16 12:52] VITALS: BMI 19.5
== END 2018-10-16 12:30 | disposition critical access hospital (66) ==
LOC: AMBL 12:24
PROVIDERS: ATTEND Emergency Medicine
DX: S01.511A Laceration without foreign body of lip, initial encounter (principal); W50.0XXA Accidental hit or strike by another person, initial encounter; F10.10 Alcohol abuse, uncomplicated

== ENCOUNTER 2018-10-16 12:37 | Emergency (ER) ==
[2018-10-16 12:52] VITALS: BP 94/52; TEMP 96.6; BMI 19.5
[2018-10-16] MEDS ORDERED: LIDOCAINE HCL 1% SDV SUBCUT STA (13:52)
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
== END 2018-10-16 17:10 | disposition left against medical advice (07) ==
LOC: ED 12:37
DX: S01.511A Laceration without foreign body of lip, initial encounter (principal); Y04.2XXA Assault by strike against or bumped into by another person, initial encounter; F10.129 Alcohol abuse with intoxication, unspecified; F17.210 Nicotine dependence, cigarettes, uncomplicated
CPT/HCPCS: 99283

== ENCOUNTER 2019-03-31 07:06 | Outpatient (CLI) ==
[2019-03-31 07:24] VITALS: BMI 21.2
== END 2019-03-31 07:14 | disposition critical access hospital (66) ==
LOC: AMBL 07:06
PROVIDERS: ATTEND Internal Medicine
DX: R06.02 Shortness of breath (principal); R07.9 Chest pain, unspecified; K30 Functional dyspepsia; R10.9 Unspecified abdominal pain; R09.89 Other specified symptoms and signs involving the circulatory and respiratory systems

== ENCOUNTER 2019-03-31 07:20 | Emergency (ER) ==
[2019-03-31 07:24] VITALS: BP 154/98; TEMP 98.6; BMI 21.2
--- NOTE | 2019-03-31 07:41 | ED.PDOC ---
General ED Provider: Dr. MENDOZA HERNANDEZ Chief Complaint: Shortness of Air Stated Complaint: cough, short of air Time Seen by Physician: 07:30 (seen with her nurse at all times ) Mode of Arrival: Walk-In Information Source: Patient Exam Limitations: No limitations Nursing and Triage Documentation Reviewed and Agree: Yes Does patient meet sepsis criteria?: No System Inflammatory Response Syndrome: Not Applicable Sepsis Protocol: For patient's 13 years and over: Temp is 96.8 and below OR 101 and greater Pulse >90 BPM Resp >20/minute Acutely Altered Mental Status Are patient's symptoms suggestive of a new infection, such as: -Pneumonia -Skin, Soft Tissue -Endocarditis -UTI -Bone, Joint Infection -Implantable Device -Acute Abdominal Infection -Wound Infection -Meningitis -Blood Stream Catheter Infection -Unknown Respiratory Complaint Exam - Respiratory Complaint/Exam Symptoms Are: Resolved Timing: Intermittent Initial Severity: Mild Current Severity: None Location: Nose, Throat, Chest Character: Reports: Non-productive cough, Dry cough Aggravating: Reports: None Alleviating: Reports: None Associated Signs and Symptoms: Reports: Wheezing, URI Related History: Reports: Similar episode History of Healthcare-Acquired Pneumonia: No Related Surgical History: Reports: None Pulmonary Embolism Risk Factors: Smoking Cardiac Risk Factors: Reports: None Pseudomonas Risk Factors: Reports: None Tuberculosis Risk Factors: Reports: None Status Asthmaticus Risk Factors: Reports: None Home Oxygen Use: No Recent Stress Test: No Recent Echo/LV Function: No Current Antibiotic Use: No Current Asthma Medication Use: No Respiratory Distress: None Inadequate Respiratory Effort: No Dysphagia Present: No Stridor Present: No JVD Present: No Retractions: Not Present Diminished Breath Sounds: No Sinus Tenderness: None Grunting Respirations: No Kussmaul Respirations: No Differential Diagnoses: CHF, COPD Exacerbation, Pneumonia, Bronchitis, URI, Lower Resp. Infection Non-Traumatic Chest Pain Syncope: EKG Performed Review of Systems - Review Of Systems Constitutional: Reports: Malaise Eyes: Reports: No symptoms Ears, Nose, Mouth, Throat: Reports: No symptoms Respiratory: Reports: Cough, Short of air Cardiac: Reports: No symptoms GI: Reports: No symptoms : Reports: No symptoms Musculoskeletal: Reports: No symptoms Skin: Reports: No symptoms Neurological: Reports: No symptoms Endocrine: Reports: No symptoms Hematologic/Lymphatic: Reports: No symptoms All Other Systems: Reviewed and Negative Past Medical History - Past Medical History Previously Healthy: Yes Endocrine: Reports: None Cardiovascular: Reports: Hypertension, Other (Recent Heart Cath) Respiratory: Reports: COPD, Asthma, Pneumonia ([facility] old records:early pneumonia detected. What treatment given is not recorded.), Other (recent pneumonia/pleurisy (MAY 26 or ), HX TB) Hematological: Reports: None Gastrointestinal: Reports: Other (hep c ) Genitourinary: Reports: None Neuro/Psych: Reports: CVA, Anxiety, Depression, Other (polysubstance and alcohol abuse) Musculoskeletal: Reports: None, Other (healing burn 1st-2nd degree burn lt foot) Cancer: Reports: None Last Menstrual Period: HYSTERECTOMY Other Pertinent Past Medical History: alcohol abuse, overdoses on alcohol & anxiety/narcotic medications - Surgical History General Surgical History: Reports: Hysterectomy, Cholecystectomy, Orthopedic ( RIGHT KNEE SURGERY. SCOPE SURGERY ON LEFT KNEE), Gastric Bypass, Other, Unknown. Denies: CABG (cath recent), Back Surgery (CHRONIC BACK PROBLEMS) - Family History Family History: Reports: Unknown - Social History Smoking Status: Current every day smoker, Heavy tobacco smoker Hx Substance Use: No Alcohol Screening: Heavy - Immunizations Tetanus Shot up to Date: No Physical Exam - Physical Exam Appearance: Well-appearing, No pain distress, Well-nourished Eyes: MARY, EOMI, Conjunctiva clear ENT: Ears normal, Nose normal, Oropharynx normal Respiratory: Breath sounds diminished, Wheezes Cardiovascular: RRR, Pulses normal, No rub, No murmur GI/: Soft, Nontender, No masses, Bowel sounds normal, No Organomegaly Musculoskeletal: Normal strength, ROM intact, No edema, No calf tenderness Skin: Warm, Dry, Normal color Neurological: Sensation intact, Motor intact, Reflexes intact, Cranial nerves intact, Alert, Oriented Psychiatric: Affect appropriate, Mood appropriate Re-Evaluation - Re-Evaluation Time of Re-Evaluation: 09:00 Status: Improved Vital Signs Stable: Yes Pain Level: 0 Appearance: NAD Lungs: Clear Skin: Warm and Dry Neuro: Alert and Oriented X3 CV: RRR Critical Care Note - Critical Care Note Total Time (mins): 0 Course - Course Hematology/Chemistry: 03/31/19 08:15 03/31/19 08:15 Orders, Labs, Meds: Lab Review 03/31/19 03/31/19 03/31/19 07:45 08:15 08:15 WBC 9.73 RBC 4.13 L Hgb 13.9 Hct 41.3 MCV 100.0 H MCH 33.7 H MCHC 33.7 RDW Coeff of Sheryl 13.6 Plt Count 267 Immature Gran % (Auto) 0.4 Neut % (Auto) 65.5 Lymph % (Auto) 24.6 [place] % (Auto) 6.0 Eos % (Auto) 2.7 Baso % (Auto) 0.8 Immature Gran # (Auto) 0.0 Neut # (Auto) 6.4 Lymph # (Auto) 2.4 [place] # (Auto) 0.6 Eos # (Auto) 0.3 Baso # (Auto) 0.1 D-Dimer (Manual) Puncture Site L rad O2 Saturation 97.0 ABG pH 7.394 ABG pCO2 35.2 ABG pO2 89.0 ABG HCO3 21.6 L ABG Total CO2 23 ABG Base Excess -3 L Griffin Test + O2 Delivery Device Ra FiO2 % 21.0 Sodium 139.1 Potassium 4.27 Chloride 108.6 H Carbon Dioxide 25.0 Anion Gap 9.77 BUN 13.5 Creatinine 0.68 Estimated GFR (MDRD) 89.00 BUN/Creatinine Ratio 19.85 Glucose 116.8 H Calcium 9.49 Total Bilirubin 0.25 AST 65.8 H ALT 55.6 H Alkaline Phosphatase 130.3 H Total Creatine Kinase 197.9 H CK-MB (CK-2) Pending CK-MB (CK-2) % Pending Troponin I < 0.012 Total Protein 8.17 Albumin 4.52 Globulin 3.65 Albumin/Globulin Ratio 1.23 Urine Opiates Screen Ur Oxycodone Screen Urine Methadone Screen Ur Propoxyphene Screen Ur Barbiturates Screen U Tricyclic Antidepress Ur Phencyclidine Scrn Ur Amphetamine Screen U Methamphetamines Scrn U Benzodiazepines Scrn Urine Cocaine Screen U Cannabinoids Screen 03/31/19 03/31/19 08:15 08:30 WBC RBC Hgb Hct MCV MCH MCHC RDW Coeff of Sheryl Plt Count Immature Gran % (Auto) Neut % (Auto) Lymph % (Auto) [place] % (Auto) Eos % (Auto) Baso % (Auto) Immature Gran # (Auto) Neut # (Auto) Lymph # (Auto) [place] # (Auto) Eos # (Auto) Baso # (Auto) D-Dimer (Manual) 340.27 Puncture Site O2 Saturation ABG pH ABG pCO2 ABG pO2 ABG HCO3 ABG Total CO2 ABG Base Excess Griffin Test O2 Delivery Device FiO2 % Sodium Potassium Chloride Carbon Dioxide Anion Gap BUN Creatinine Estimated GFR (MDRD) BUN/Creatinine Ratio Glucose Calcium Total Bilirubin AST ALT Alkaline Phosphatase Total Creatine Kinase CK-MB (CK-2) CK-MB (CK-2) % Troponin I Total Protein Albumin Globulin Albumin/Globulin Ratio Urine Opiates Screen Negative Ur Oxycodone Screen Negative Urine Methadone Screen Negative Ur Propoxyphene Screen Negative Ur Barbiturates Screen Negative U Tricyclic Antidepress Negative Ur Phencyclidine Scrn Negative Ur Amphetamine Screen Positive U Methamphetamines Scrn Positive U Benzodiazepines Scrn Positive Urine Cocaine Screen Negative U Cannabinoids Screen Negative Orders Category Date Time Status ABG DRAW REQUEST Stat CARDIO 03/31/19 07:45 Completed EKG-(ED ONLY) Stat CARDIO 03/31/19 08:47 Completed NEBULIZER TREATMENT Stat CARDIO 03/31/19 07:44 Completed ABG Stat LAB 03/31/19 07:45 Completed CBC W/ AUTO DIFF Stat LAB 03/31/19 08:15 Completed COMPREHENSIVE METABOLIC PANEL Stat LAB 03/31/19 08:15 Results CREATINE KINASE Stat LAB 03/31/19 08:15 Results D-DIMER Stat LAB 03/31/19 08:15 Completed DRUG SCREEN (RAPID FOR ED) [DRUG SCREEN, URINE, RAPID] LAB 03/31/19 08:30 Completed Stat TROPONIN I Stat LAB 03/31/19 08:15 Results Ipratropium/Albuterol Neb [Duoneb] MEDS 03/31/19 07:44 Discontinued 1 vial NEB ONCE STA CHEST, 1V AP ONLY Stat RADS 03/31/19 07:44 Completed Medications Discontinued Medications Generic Name Dose Route Start Last Admin Trade Name Freq PRN Reason Stop Dose Admin Albuterol/Ipratropium 1 vial 03/31/19 07:44 03/31/19 08:05 Duoneb NEB 03/31/19 07:45 1 vial ONCE STA Administration Vital Signs: Temp Pulse Resp BP Pulse Ox 03/31/19 07:20 98.6 F 91 H 22 154/98 H 97 Departure - Departure Time of Disposition: 09:43 (at 9:35 am saw pt smoking in the parking lot , did not talk to her approached pt with brenda she said she is fine and will not return to ED .left ama ) Disposition: AMA Discharge Problem: Cough, Amphetamine abuse, Abnormal liver enzymes Condition: Good Pt referred to PMD for follow-up: Yes IPMP verified?: No Allergies/Adverse Reactions: Allergies cyclobenzaprine HCl [From Flexeril] Adverse Reaction (Verified 03/31/19 07:24) ketorolac tromethamine [From Toradol] Adverse Reaction (Verified 03/31/19 07:24) levofloxacin [From Levaquin] Adverse Reaction (Verified 03/31/19 07:24) methocarbamol [From Robaxin] Adverse Reaction (Verified 03/31/19 07:24) acetaminophen Adverse Reaction (Uncoded 03/31/19 07:24) cyclobenzaprine HCl Adverse Reaction (Uncoded 03/31/19 07:24) levofloxacin Adverse Reaction (Uncoded 03/31/19 07:24) propoxyphene HCl Adverse Reaction (Uncoded 03/31/19 07:24) propoxyphene napsylate Adverse Reaction (Uncoded 03/31/19 07:24) Disposition Discussed With: Other (left AMA SPOKE TO HER IN THE LOBBY BRENDA PRESENT DID NOT WISH TO COME BACK TO ED )
[2019-03-31] MEDS ORDERED: DUONEB NEB STA (07:44)
--- NOTE | 2019-03-31 08:09 | DI ---
EXAM: Single view of the chest HISTORY: Shortness of breath. COMPARISON: Chest x-ray 07/21/[address] chest 07/29/18. FINDINGS: Cardiomediastinal silhouette is normal. There is no pneumothorax or effusion. The lungs a re clear with no consolidation or mass. The osseous structures are unremarkable. IMPRESSION: No acute cardiopulmonary process
== END 2019-03-31 09:59 | disposition left against medical advice (07) ==
LOC: ED 07:20
DX: R05 Cough (principal); R06.02 Shortness of breath; F15.10 Other stimulant abuse, uncomplicated; R74.8 Abnormal levels of other serum enzymes; F17.210 Nicotine dependence, cigarettes, uncomplicated
CPT/HCPCS: 36415; 80053; 80306; 82550; 82553; 82803; 84484; 85025; 85379; 93005; 93010; 94640; 99283